=== PATIENT | female | born 1930 | race Caucasian/White ===

== ENCOUNTER 2016-06-09 12:58 | Inpatient (IN) | payer MEDICARE, OTHER ==
[~2016-06-09] VITALS: Ht 160 cm; Wt 51.9 kg
[2016-06-09] VITALS (10 sets, daily range): BP systolic 96–168; BP diastolic 46–77; PULSE 51–62; RESP 14–21; TEMP 97.7–97.9; O2SAT 97–100
[~2016-06-09 12:58] MED LIST: ARTHRITIS MED; CLON.5 PO; HTN MED; HYDR-3533 PO; SERT50 PO
[2016-06-09] MEDS ORDERED: SODIUM CHLOR 0.9% 1000 ML INJ 1,000 ML IV ONE (13:09)
[2016-06-09 13:19] LABS: AUTOMATED NEUTROPHIL # 4.7 TH/MM3 (1.8-7.7); BASOPHIL % 0.5 % (0.0-2.0); EOSINOPHIL # 0.1 TH/MM3 (0-0.4); EOSINOPHIL % 0.6 % (0.0-4.0); HEMATOCRIT 35.7 % (35.0-46.0); HEMO FLAGS DIFF FINAL; LYMPH % 40.5 % (9.0-44.0); LYMPHOCYTE # 3.7 TH/MM3 (1.0-4.8); MEAN CELL VOLUME 90.6 FL (80.0-100.0); MEAN CORPUSCULAR HEMOGLOBIN 30.5 PG (27.0-34.0); MEAN CORPUSCULAR HGB CONC 33.6 % (32.0-36.0); MONO % 7.5 % (0.0-8.0); NEUT % 50.9 % (16.0-70.0); PLATELET COUNT 273 TH/MM3 (150-450); RED BLOOD COUNT 3.95 MIL/MM3 (4.00-5.30); RED CELL DISTRIBUTION WIDTH 13.2 % (11.6-17.2); WHITE BLOOD COUNT 9.2 TH/MM3 (4.0-11.0)
[2016-06-09] MEDS ORDERED: IODIXANOL 320 MG/ML 10 ML VIAL (for Rad CT) IV ONE (13:21)
[2016-06-09 13:22] LABS: I-STAT POTASSIUM 4.8 MMOL/L (3.5-4.9)
--- NOTE | 2016-06-09 13:25 | RADRPT ---
EXAM DATE/TIME: 06/09/2016 13:11 [facility] COMPARISON: No previous studies available for comparison. INDICATIONS : Stroke alert; left sided weakness and facial droop. RADIATION DOSE: 32.24 CTDIvol (mGy) This report was called by Dr. Angulo to Dr. Paul at 1322 MEDICAL HISTORY : Non-responsive. SURGICAL HISTORY : Non-responsive. ENCOUNTER: Initial ACUITY: 1 day PAIN SCALE: Non-responsive LOCATION: cranial TECHNIQUE: Multiple contiguous axial images were obtained of the head. Using automated exposure control and adjustment of the mA and/or kV according to patient size, radiation dose was kept as low as reasonably achievable to obtain optimal diagnostic quality images. FINDINGS: CEREBRUM: The ventricles are normal for age. Subarachnoid space in the frontal regions are promin ent. No evidence of midline shift, mass lesion, hemorrhage or acute infarction. No extra-axial flui d collections are seen. POSTERIOR FOSSA: The cerebellum and brainstem are intact. The 4th ventricle is midline. The cer ebellopontine angle is unremarkable. EXTRACRANIAL: The visualized portion of the orbits is intact. SKULL: The calvaria is intact. No evidence of skull fracture. CONCLUSION: No evidence of acute infarct or hemorrhage. Frontal lobe volume loss. Adebayo Mario MD on June 09, 2016 at 13:17 Board Certified Radiologist. This report was verified electronically.
[2016-06-09 13:28] LABS: APTT (PATIENT) 22.4 SEC (24.3-30.1); PROTHROMBIN TIME - PATIENT 10.9 SEC (9.8-11.6)
[2016-06-09] MEDS ORDERED: ONDANSETRON HCL 4 MG/2 ML VIAL ONE ×2 (13:53→14:16)
--- NOTE | 2016-06-09 14:12 | PD ---
HPI Chief Complaint: Stroke Alert Time Seen by Provider: 13:08 Travel History International Travel<30 days: No Contact w/Intl Traveler<30days: No Traveled to known affect area: No History of Present Illness HPI 85-year-old woman, history of hypertension and chronic kidney disease, presents emergency Department with the abrupt onset of confusion, collapse, found to have left-sided facial droop and flaccid paralysis and left-sided weakness. Onset of symptoms was 12:15 PM. No history of previous stroke. Otherwise had been feeling generally well except for some recent cough cold symptoms. EMS describes the patient was out walking with family when she got weak, started to collapse was caught by family members. History Past Medical History Narrative Medical Hypertension Chronic kidney disease Medical History: Unable to Obtain Menopausal: Yes Past Surgical History Surgical History: Unable to Obtain Social History Alcohol Use: Yes (OCC) Tobacco Use: Yes (4 CIGS PER DAY) Allergies-Medications (Allergen,Severity, Reaction): Coded Allergies: No Known Allergies (Verified , 06/09/16) Reported Meds & Prescriptions Reported Meds & Active Scripts Active Active Prescriptions or Reported Medications Unobtainable Review of Systems Except as stated in HPI: all other systems reviewed are Neg Physical Exam Narrative GENERAL: 85-year-old woman, left-sided flaccid weakness right sided gaze deviation SKIN: Warm and dry. HEAD: Atraumatic. Normocephalic. EYES: Pupils equal and round. No scleral icterus. No injection or drainage. ENT: No nasal bleeding or discharge. Mucous membranes pink and moist. NECK: Trachea midline. No JVD. CARDIOVASCULAR: Regular rate and rhythm. No murmur appreciated. RESPIRATORY: No accessory muscle use. Clear to auscultation. Breath sounds equal bilaterally. GASTROINTESTINAL: Abdomen soft, non-tender, nondistended. Hepatic and splenic margins not palpable. MUSCULOSKELETAL: No obvious deformities. No clubbing. No cyanosis. No edema. NEUROLOGICAL: Somewhat decreased alertness. Marked paralysis of left-sided facial droop. No aphasia. Some dysarthria. Left-sided flaccid paresis of left -sided sensory loss and right sided gaze deviation and left canids-neglect. PSYCHIATRIC: Appropriate mood and affect; insight and judgment normal. Data Data Last Documented VS Vital Signs Date Time Temp Pulse Resp B/P Pulse Ox O2 Delivery O2 Flow Rate FiO2 06/09/16 13:30 58 14 156/68 98 Nasal Cannula 4 Orders Diet Npo (06/09/16 Lunch) Activity Bed Rest (06/09/16 ) Electrocardiogram (06/09/16 ) I-Stat Creatinine (06/09/16 13:09) I-Stat Profile (06/09/16 13:09) Prothrombin Time / Inr (Pt) (06/09/16 13:09) Act Partial Throm Time (Ptt) (06/09/16 13:09) Complete Blood Count With Diff (06/09/16 13:09) Fibrinogen (06/09/16 13:09) Creatine Kinase (Cpk) (06/09/16 13:09) Troponin I (06/09/16 13:09) Ua Includes Microscopic (06/09/16 13:09) Drug Screen, Random Urine (06/09/16 13:09) Type And Screen (06/09/16 13:09) Ct Brain W/O Iv Contrast(Rout) (06/09/16 ) Cta Brain W Iv Contrast W 3d (06/09/16 13:09) Cta Neck W Iv Contrast W 3d (06/09/16 13:09) Consult Neurology (06/09/16 ) Blood Glucose (06/09/16 13:09) Ecg Monitoring (06/09/16 13:09) Neuro Checks Q2HX12,Q4H (06/09/16 13:09) Nursing Bedside Swallow Assess .ONCE (06/09/16 13:09) Iv Access Insert/Monitor (06/09/16 13:09) NPO (06/09/16 13:09) Oximetry (06/09/16 13:09) Oxygen Administration (06/09/16 13:09) Sodium Chlor 0.9% 1000 Ml Inj (Ns 1000 M (06/09/16 13:09) Resp Oxygen Nato C Titrat 1-4 L (06/09/16 13:09) Cath For Specimen (06/09/16 13:09) Iodixanol 320 Inj (Rad Ct) (Visipaque 32 (06/09/16 13:21) Labs Laboratory Tests Test 06/09/16 13:02 White Blood Count 9.2 TH/MM3 Red Blood Count 3.95 MIL/MM3 Hemoglobin 12.0 GM/DL Bedside Hemoglobin 11.9 G/DL Hematocrit 35.7 % Bedside Hematocrit 35.0 % Mean Corpuscular Volume 90.6 FL Mean Corpuscular Hemoglobin 30.5 PG Mean Corpuscular Hemoglobin 33.6 % Concent Red Cell Distribution Width 13.2 % Platelet Count 273 TH/MM3 Mean Platelet Volume 7.5 FL Neutrophils (%) (Auto) 50.9 % Lymphocytes (%) (Auto) 40.5 % Monocytes (%) (Auto) 7.5 % Eosinophils (%) (Auto) 0.6 % Basophils (%) (Auto) 0.5 % Neutrophils # (Auto) 4.7 TH/MM3 Lymphocytes # (Auto) 3.7 TH/MM3 Monocytes # (Auto) 0.7 TH/MM3 Eosinophils # (Auto) 0.1 TH/MM3 Basophils # (Auto) 0.0 TH/MM3 CBC Comment DIFF FINAL Differential Comment Prothrombin Time 10.9 SEC Prothromb Time International 1.0 RATIO Ratio Activated Partial 22.4 SEC Thromboplast Time Fibrinogen 302 mg/dL Bedside Sodium 137 MMOL/L Bedside Potassium 4.8 MMOL/L Bedside Chloride 104 MMOL/L Bedside Blood Urea Nitrogen 45 MG/DL Bedside Creatinine 1.7 MG/DL Bedside Glucose 136 MG/DL Total Creatine Kinase 68 U/L Troponin I 0.02 NG/ML Blood Type A POSITIVE Antibody Screen NEGATIVE Blood Bank Comment [facility] Medical Decision Making Medical Screen Exam Complete: Yes Emergency Medical Condition: Yes Interpretation(s) Head CT negative Labs remarkable for elevated creatinine, consistent with chronic kidney disease Differential Diagnosis CVA, bleed, dissection, other Narrative Course Medical decision making 85-year-old woman presents emergency Department with abrupt onset of left-sided facial weakness and left-sided paralysis. NIH stroke scale was 19 as done by me , consistent with moderate to severe stroke. No contraindications to TPA. Risks and benefits for tPA were discussed with patient, sister, significant other. Risks including hemorrhage, including potentially fatal GI and intracranial bleeding which can result in long-term serious disability or were discussed. Benefits including resolution of symptoms were discussed. Patient as well as family including sister and her significant other consented verbally to proceed with therapy. TPA was started on CT scan. Given the large suspicion for large vessel occlusion, CTA was performed. Chronic kidney disease elbow creatinine was noted. CTA does show large vessel occlusion the patient was taken to the interventional radiology suite, and will be admitted to the ICU. Procedures Procedure Narrative Aggregate critical care time was 45 minutes. Time to perform other separately billable procedures was not included in the critical care time. My time did not include minutes spent treating any other patients simultaneously or on activities that did not directly contribute to the patient's treatment. The services I provided to this patient were to treat and/or prevent clinically significant deterioration that could result in: , disability, unrecognized stroke, operative for stroke treatment. I provided critical care services requiring my management, as noted below: Chart data review, documentation time, medication orders and management, vital sign assessments/reviewing monitor data, ordering and reviewing lab tests, ordering and interpreting/reviewing x-rays and diagnostic studies, care of the patient and discussion of the patient with the admitting physicians. Scripts Unable to Obtain Active Prescriptions or Reported Meds Derrick Paul MD Jun 09, 2016 14:12
[2016-06-09] MEDS ORDERED: VERAPAMIL INJ 10 MG/4 ML VIAL ONE (14:21)
[2016-06-09] MEDS ORDERED: fentaNYL CITRATE 250 MCG/5 ML AMP ONE (14:21)
[2016-06-09] MEDS ORDERED: MIDAZOLAM HCL 5 MG/5 ML VIAL ONE (14:21)
[2016-06-09] MEDS ORDERED: MISCELLANEOUS NURSING INFORMATION XX PRN (14:30)
[2016-06-09] MEDS ORDERED: ONDANSETRON HCL 4 MG/2 ML VIAL IV PUSH ONE (14:30)
[2016-06-09] MEDS ORDERED: ALTEPLASE DRIP IV ONE (14:30)
[2016-06-09] MEDS ORDERED: SODIUM CHLORIDE 0.9% 50 ML BAG IVF ONE (14:30)
[2016-06-09] MEDS ORDERED: ALTEPLASE BOLUS 9 MG/9 ML SYR IV ONE (14:30)
--- NOTE | 2016-06-09 14:42 | RADRPT ---
EXAM DATE/TIME: 06/09/2016 13:22 [facility] COMPARISON: No previous studies available for comparison. INDICATIONS : Stroke alert; left sided weakness and facial droop. IV CONTRAST: 50 cc Visipaque (iodixanol) IV ; Cumulative dose for multiple exams. RADIATION DOSE: 26.02 CTDIvol (mGy) ; Combined studies MEDICAL HISTORY : Non-responsive. SURGICAL HISTORY : Non-responsive. ENCOUNTER: Initial ACUITY: 1 day PAIN SCALE: Non-responsive LOCATION: cranial TECHNIQUE: Volumetric scanning was performed using a multi-row detector CT scanner. The data was post processed with a variety of visualization algorithms including full volume maximum intensity projection, multi -planar sliding thin slab reformation, curved planar reformation, and surface rendering techniques. Using automated exposure control and adjustment of the mA and/or kV according to patient size, radiat ion dose was kept as low as reasonably achievable to obtain optimal diagnostic quality images. FINDINGS: There is excellent visualization of the major intracranial arteries out to the second-order branch ve ssels. Calcific atherosclerotic disease identified in both carotid siphons. Abrupt cutoff occlusion is identified of the proximal M1 segment of the right middle through artery. A M2 and M3 branches are seen distally suggesting collateral flow. The left middle through artery and intracerebral arteries are widely patent. Vertebral basilar circulation is unremarkable without evidence of stenosis or occlusion. CONCLUSION: Occluded proximal M1 segment of the right middle cervical artery No other occlusive or stenotic lesions. Adebayo Mario MD on June 09, 2016 at 13:45 Board Certified Radiologist. This report was verified electronically.
[2016-06-09] MEDS ORDERED: HEPARIN SODIUM - IV 10,000 UNITS/10 ML VIAL ONE (14:47)
--- NOTE | 2016-06-09 14:55 | RADRPT ---
EXAM DATE/TIME: 06/09/2016 13:22 [facility] COMPARISON: No previous studies available for comparison. INDICATIONS : Stroke alert; left sided weakness and facial droop. IV CONTRAST: 50 cc Visipaque (iodixanol) IV ; Cumulative dose for multiple exams. RADIATION DOSE: 26.02 CTDIvol (mGy) ; Combined studies MEDICAL HISTORY : Non-responsive. SURGICAL HISTORY : Non-responsive. ENCOUNTER: Initial ACUITY: 1 day PAIN SCALE: Non-responsive LOCATION: neck TECHNIQUE: Volumetric scanning was performed using a multirow detector CT scanner. The data was post processed with a variety of visualization algorithms including full-volume maximum intensity projection, multip lanar sliding thin-slab reformation, curved-planar reformation, and surface-rendering techniques. Us ing automated exposure control and adjustment of the mA and/or kV according to patient size, radiatio n dose was kept as low as reasonably achievable to obtain optimal diagnostic quality images. FINDINGS: AORTIC ARCH: Developmental anomaly of the aortic arch is noted. 3 vessel aortic arch is noted. The innominate and left common carotid arteries have a common origin. The left subclavian artery has a normal origin. Th e right subclavian artery originates adjacent to but distal to the left subclavian artery. It courses posterior to the esophagus to the right upper extremity. There is no evidence of ostial stenosis inv olving the great vessels. RIGHT CAROTID: Densely calcified plaque is identified at the origin of the right internal carotid artery. Degree of stenosis is moderate to severe in the 50-69% range. The cervical portion of the right ICA is otherwis e widely patent. LEFT CAROTID: Noncalcified plaque is identified in the left carotid bifurcation. There is moderate stenosis of the left ICA origin which measures between 50 and 60% diameter narrowing. VERTEBRALS: The right vertebral artery originates from the proximal right common carotid artery. The left vertebr al artery has a normal origin. There is no evidence of vertebral artery occlusive disease. 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 Bilateral carotid bifurcation plaques with moderate to severe stenosis at the origin of the right ank le carotid artery and moderate stenosis at the origin of the left internal carotid artery. Right vertebral artery originates from the right common carotid artery. Adebayo Mario MD on June 09, 2016 at 14:43 Board Certified Radiologist. This report was verified electronically.
--- NOTE | 2016-06-09 15:15 | HHI.HP ---
HPI Service Critical Care Medicine Primary Care Physician Unknown Admission Diagnosis right MCA stroke Diagnosis: Chief Complaint: Left sided weakness Travel History International Travel<30 Days: No Contact w/Intl Traveler <30 Da: No Traveled to Known Affected Are: No History of Present Illness HPI 85-year-old woman, history of hypertension and chronic kidney disease, presents emergency Department with the abrupt onset of confusion, collapse, found to have left-sided facial droop and flaccid paralysis and left-sided weakness. Onset of symptoms was 12:15 PM. No history of previous stroke. Otherwise had been feeling generally well except for some recent cough cold symptoms. EMS describes the patient was out walking with family when she got weak, started to collapse was caught by family members. Patient was brought to the ER where she was noted to have dense left-sided hemiplegia. Stat head CT was negative for bleed. Patient was initiated on stroke protocol and underwent CTA head and neck and received TPA. Critical care medicine accepted patient for admission to the ICU. I evaluated the patient immediately on being notified. At the time of my evaluation patient was awake and alert with normal speech and right- sided hemiplegia having just finished TPA infusion. She was to be taken to interventional radiology for clot retrieval. History (Limited) History Past Medical History Narrative Medical Hypertension Chronic kidney disease Medical History: Unable to Obtain Menopausal: Yes Past Surgical History Surgical History: Unable to Obtain Social History Alcohol Use: Yes (OCC) Tobacco Use: Yes (4 CIGS PER DAY) Allergies-Medications Allergies-Medications (Allergen,Severity, Reaction): Coded Allergies: No Known Allergies (Verified , 06/09/16) Reported Meds & Prescriptions Reported Meds & Active Scripts Active Active Prescriptions or Reported Medications Unobtainable ROS Review of Systems Except as stated in HPI: all other systems reviewed are Neg Physical Exam Vital Signs Vital Signs Date Time Temp Pulse Resp B/P Pulse Ox O2 Delivery O2 Flow Rate FiO2 06/09/16 14:00 57 14 163/59 98 Nasal Cannula 4 06/09/16 13:45 61 14 168/65 100 Nasal Cannula 4 06/09/16 13:44 97 21 06/09/16 13:30 58 14 156/68 98 Nasal Cannula 4 06/09/16 13:15 51 14 139/77 98 Nasal Cannula 4 06/09/16 13:13 98 Nasal Cannula 4 06/09/16 13:13 98 Nasal Cannula 4 06/09/16 13:01 54 14 144/66 98 Physical Exam Narrative GENERAL: 85-year-old woman, left-sided flaccid weakness right sided gaze deviation SKIN: Warm and dry. HEAD: Atraumatic. Normocephalic. EYES: Pupils equal and round. No scleral icterus. No injection or drainage. ENT: No nasal bleeding or discharge. Mucous membranes pink and moist. NECK: Trachea midline. No JVD. CARDIOVASCULAR: Regular rate and rhythm. No murmur appreciated. RESPIRATORY: No accessory muscle use. Clear to auscultation. Breath sounds equal bilaterally. GASTROINTESTINAL: Abdomen soft, non-tender, nondistended. Hepatic and splenic margins not palpable. MUSCULOSKELETAL: No obvious deformities. No clubbing. No cyanosis. No edema. NEUROLOGICAL: AAO x3, no aphasia. Some dysarthria. Left-sided flaccid hemiparesis with grade 0 power in left upper and lower extremities, Gr 5 power in right upper and lower extremities. Laboratory Laboratory Tests Test 06/09/16 13:02 White Blood Count 9.2 Red Blood Count 3.95 Hemoglobin 12.0 Bedside Hemoglobin 11.9 Hematocrit 35.7 Bedside Hematocrit 35.0 Mean Corpuscular Volume 90.6 Mean Corpuscular Hemoglobin 30.5 Mean Corpuscular Hemoglobin 33.6 Concent Red Cell Distribution Width 13.2 Platelet Count 273 Mean Platelet Volume 7.5 Neutrophils (%) (Auto) 50.9 Lymphocytes (%) (Auto) 40.5 Monocytes (%) (Auto) 7.5 Eosinophils (%) (Auto) 0.6 Basophils (%) (Auto) 0.5 Neutrophils # (Auto) 4.7 Lymphocytes # (Auto) 3.7 Monocytes # (Auto) 0.7 Eosinophils # (Auto) 0.1 Basophils # (Auto) 0.0 CBC Comment DIFF FINAL Differential Comment Prothrombin Time 10.9 Prothromb Time International 1.0 Ratio Activated Partial 22.4 Thromboplast Time Fibrinogen 302 Bedside Sodium 137 Bedside Potassium 4.8 Bedside Chloride 104 Bedside Blood Urea Nitrogen 45 Bedside Creatinine 1.7 Bedside Glucose 136 Total Creatine Kinase 68 Troponin I 0.02 Blood Type A POSITIVE Antibody Screen NEGATIVE Blood Bank Comment Result Diagram: 06/09/16 1302 Imaging Last Impressions Head CT 06/09/16 0000 Signed Impressions: Service Date/Time: Thursday, June 09, 2016 13:11 - CONCLUSION: No evidence of acute infarct or hemorrhage. Frontal lobe volume loss. 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 Status post IV TPA. Neurology consulted and discussed case with Dr. Fuller. Patient going for mechanical clot retrieval by interventional radiology. Anticoagulation/ antiplatelet therapy per neurology/interventional radiology. Cardiovascular: Monitor blood pressure, labetalol when necessary to keep SBP below 180 mmHg following thrombolysis Pulmonary: Currently protecting airway. Supplemental O2 as needed. Bronchodilators when necessary. GI/liver: Nothing by mouth for now. Advance by mouth when okay with neurology. Speech swallow eval ordered. Zofran when necessary for nausea vomiting. Renal/: IV hydration, strict intake output, monitor and replete electrolytes, follow BUN/creatinine. Heme: Follow CBC ID: No antibiotics indicated at this time Prophylaxis: SCDs. Subcutaneous Lovenox when okay with neurology. D/W Dr. Sauceda, Dr. Fuller in ER. Time spent on critical care excluding procedures 40 minutes Eleazar Chua MD Jun 09, 2016 15:15
[2016-06-09] MEDS ORDERED: LABETALOL HCL 100 MG/20 ML VIAL IV PUSH PRN (15:30)
[2016-06-09] MEDS ORDERED: ONDANSETRON HCL 4 MG/2 ML VIAL IV PUSH PRN (15:30)
[2016-06-09] MEDS ORDERED: IODIXANOL 320 MG/ML 100 ML VIAL (for Cath Lab) I-ARTERIAL ONE (16:16)
[2016-06-09] MEDS ORDERED: IODIXANOL 320 MG/ML 10 ML VIAL (for RAD SPEC) I-ARTERIAL ONE (16:16)
[2016-06-09] MEDS: oxyCODONE/ACETAMINOPHEN 5 MG/325 MG TAB PO PRN (17:18)
--- NOTE | 2016-06-09 18:11 | RADRPT ---
EXAM DATE/TIME: 06/09/2016 17:32 [facility] COMPARISON: No previous studies available for comparison. INDICATIONS : Left anterior, inferior rib pain post fall. MEDICAL HISTORY : None. SURGICAL HISTORY : None. ENCOUNTER: Initial ACUITY: 1 day PAIN SCORE: 10/10 LOCATION: Left chest FINDINGS: A single view of the chest demonstrates the lungs to be symmetrically aerated without evidence of mas s, infiltrate or effusion. The cardiomediastinal contours are unremarkable. Osseous structures are intact. CONCLUSION: No acute disease. Jose Enrique Paredes MD FACR on June 09, 2016 at 18:09 Board Certified Radiologist. This report was verified electronically.
[2016-06-09] MEDS: MORPHINE SULFATE 4 MG/ML INJ IV PRN ×2 (18:18→22:35)
[2016-06-10] VITALS (11 sets, daily range): BP systolic 95–114; BP diastolic 44–58; PULSE 54–74; RESP 12–24; TEMP 98.1–98.3; O2SAT 95–100
[2016-06-10] MEDS: oxyCODONE/ACETAMINOPHEN 5 MG/325 MG TAB PO PRN ×2 (00:33→10:01)
[2016-06-10] MEDS: MORPHINE SULFATE 4 MG/ML INJ IV PRN ×4 (02:30→23:16)
[2016-06-10 04:40] LABS: HDL CHOLESTEROL 40.1 MG/DL (40.0-60.0); LDL CHOLESTEROL 56 MG/DL (0-99)
--- NOTE | 2016-06-10 08:15 | RADRPT ---
EXAM DATE/TIME: 06/09/2016 14:16 [facility] COMPARISON: No previous studies available for comparison. INDICATIONS : Patient is a stroke alert, with flaccid left side. MEDICAL HISTORY : Hypertension Chronic kidney disease SURGICAL HISTORY : Unobtainable ENCOUNTER: Initial ACUITY: 1 day PAIN SCORE: 7/10 LOCATION: ribs FLUORO TIME: 10.0 minutes ACCESS SITE: Right Femoral artery SEDATION TIME: 45 minutes CONTRAST: 60 cc Visipaque (iodixanol) MEDICATION(S): 1.) 1 mg midazolam (Versed) IV 2.) 50 mcg fentanyl (Sublimaze) IV DEVICE(S): 1.) Right common femoral artery 8 FR Angio-Seal PROCEDURE : 1. Ultrasound-guided puncture of the access site. 2. Angiography of the access site prior to closure device. 3. Conscious sedation with continuous EKG and Oximetry monitoring. 4. Percutaneous closure of the access site. 5. Angiography of the right common carotid artery 6. Angiography of the right internal carotid artery 7. suction thrombectomy of the right middle cerebral artery The risks, benefits and alternatives to the procedure were explained and verbal and written consent w as obtained. The site was prepped in sterile fashion. Full sterile technique was used, including ca p, mask, sterile gloves and gown and a large sterile sheet. Hand hygiene and 2% chlorhexidine and/or betadine/alcohol prep was utilized per protocol for cutaneous antisepsis. The skin and subcutaneous tissues were infiltrated with local anesthetic solution. With ultrasound and fluoroscopic guidance the selected artery was punctured and a vascular sheath was placed. Angiography of the common femoral artery was performed for evaluation prior to percutaneous closure device placement. A JB2 catheter was placed in the right common carotid artery and angiography of the carotid bifurcati on demonstrates 50-60% stenosis. The catheter was advanced into the internal carotid artery and excha nged for a 6 Czech guiding catheter. Angiography of the internal carotid artery demonstrates complet e occlusion of the M1 segment on the right side. Following heparinization with 3000 units an EMILY 68 c atheter was taken to the face of the clot and thrombectomy and suction performed for 90 seconds. The catheter was withdrawn a repeat angiography image rates complete patency of the middle cerebral arter y. TICI3 flow was present. Puncture time was 1425 with an recanalization time was 1450. Hemostasis was obtained with the prescribed medicated closure device. Conscious sedation was perform ed with the prescribed dosages and duration as above. EKG and oximetry remained stable throughout th e procedure. The patient was sent to post anesthesia recovery in stable condition. CONCLUSION: 1. Uncomplicated thrombectomy of the right middle cerebral artery Matthew Vizcaino MD on June 10, 2016 at 8:01 Board Certified Radiologist. This report was verified electronically.
[2016-06-10 08:59] LABS: ANION GAP 8 MEQ/L (5-15); AST (GOT) 20 U/L (15-37); BICARBONATE 23.6 MEQ/L (21.0-32.0); BLOOD UREA NITROGEN 46 MG/DL (7-18); CHLORIDE 106 MEQ/L (98-107); GLOMERULAR FILTRATION RATE 27 ML/MIN (>89); POTASSIUM 4.7 MEQ/L (3.5-5.1); SODIUM (NA) 138 MEQ/L (136-145)
[2016-06-10 09:02] LABS: ALKALINE PHOSPHATASE 47 U/L (45-117); ALT (GPT) 16 U/L (10-53); TOTAL BILIRUBIN ADULT 0.4 MG/DL (0.2-1.0)
--- NOTE | 2016-06-10 09:45 | MB ---
cc: BERNARDINO PEARCE MD DATE OF CONSULTATION 06/09/2016 HISTORY This is an 85-year-old female who was called in as a stroke alert with a history of hypertension and chronic kidney disease, presented to the emergency room with sudden onset of altered mental status while she was walking with a friend. She fell, collapsed and was found to have a left-sided face droop with left-sided weakness of arm and leg. Onset of the symptoms was 12:15 p.m. There is no history of prior TIA or stroke. The patient is without history of any stroke, TIA and not on any blood thinner. No significant head injury and no seizures were reported. The NIH stroke scale was estimated to be 15 for a partial gaze palsy, a partial hemianopsia and a partial facial palsy with no movements of upper and lower extremity, partial sensory loss, dysarthria and partial neglect. Head CT scan was negative for any bleed. The patient was within the therapeutic window. Labs were unremarkable with INR of 1.0, platelet count of 273, so the patient was deemed a candidate for IV TPA which was started and CTA of the head and neck and IR was consulted for further workup. PAST MEDICAL HISTORY 1. Hypertension. 2. Chronic kidney disease. PAST SURGICAL HISTORY Unable to obtain. SOCIAL HISTORY Occasional use of alcohol and a few cigarettes per day. No illicit drug use. FAMILY HISTORY Noncontributory. ALLERGIES No known allergies. REVIEW OF SYSTEMS A 12-point review of systems is negative except for what is stated in the HPI. PHYSICAL EXAMINATION GENERAL: Lays in bed, calm with left-sided weakness and right-sided gaze deviation. Not in acute distress but apprehended and anxious. HEENT: Atraumatic, normocephalic. Intact hearing. NECK: Trachea in the midline. No carotid bruit. CARDIOVASCULAR: Normal sinus rhythm. No murmurs. LUNGS: Clear to auscultation. No wheezes. MUSCULOSKELETAL: No obvious deformity, scratches on the left side of the arm and foot and giron due to fall. NEUROLOGICAL: Awake, alert, oriented to time, person and place. right gaze paresis, partial hemianopsia, A dense hemiplegia on the left side and left-sided facial palsy of upper motor neuron type. Slurred speech. Intact speech content.Sensory and extinction is positive, unable to assess for cerebellar function due to the weakness on the left side. Intact on the right side. PSYCHIATRIC: Appropriate mood and affect. Insight and judgment are normal. VITAL SIGNS: Blood pressure 156/68, pulse ox 98, pulse 58. LABORATORY DATA White blood cells 9.2, hemoglobin 12, platelet 273. INR 1.0. Troponin 0.02.Sodium 137, potassium 4.8, chloride 104 BUN 45, creatinine 1.7, glucose 136.Total creatinine kinase 68. IMAGING STUDIES - Head CT scan was reported with no acute intracranial abnormality. - Pending CTA of the head and neck official read. DIAGNOSTIC IMPRESSION - Acute ischemic stroke in the right parietal region with most likely right MCA occlusion. IR has been called for interventional radiology thrombectomy or mechanical removal of the clot. PLAN - Continue IV TPA. - During the encounter the patient will go to the IR suite for - mechanical thrombectomy. - Neurology will follow up after the procedure. MD LILA Ocampo/KK /2:33 PM /9:33 AM MTDShashank
--- NOTE | 2016-06-10 11:02 | HHI.CCPN ---
Subjective Remarks/Hospital Course 06/09: 85-year-old woman, history of hypertension and chronic kidney disease, presents emergency Department with the abrupt onset of confusion, collapse, found to have left-sided facial droop and flaccid paralysis and left-sided weakness. Onset of symptoms was 12:15 PM. No history of previous stroke. Otherwise had been feeling generally well except for some recent cough cold symptoms. EMS describes the patient was out walking with family when she got weak, started to collapse was caught by family members. Patient was brought to the ER where she was noted to have dense left-sided hemiplegia. Stat head CT was negative for bleed. Patient was initiated on stroke protocol and underwent CTA head and neck and received TPA. Critical care medicine accepted patient for admission to the ICU. I evaluated the patient immediately on being notified. At the time of my evaluation patient was awake and alert with normal speech and right-sided hemiplegia having just finished TPA infusion. She was to be taken to interventional radiology for clot retrieval. 06/10: Patient underwent clot retrieval yesterday by interventional radiology with good flow was established in right MCA territory. She has had almost complete resolution of left-sided weakness since the procedure. Patient has been complaining of left-sided chest wall pain at the site of her fall since her arrival in the ICU yesterday which improved with morphine. This morning she is awake and alert laying in bed not in any acute distress. She still complains of left-sided chest wall pain. Denies any shortness of breath nausea headache or visual disturbance. Her speech appears normal. Objective Vital Signs Date Time Temp Pulse Resp B/P Pulse Ox O2 Delivery O2 Flow Rate FiO2 06/10/16 07:49 95 06/10/16 07:00 Nasal Cannula 2.00 06/10/16 04:00 98.3 54 13 97/46 06/09/16 13:44 21 Intake and Output 06/09/16 06/09/16 06/10/16 08:00 16:00 00:00 Intake Total 633 ml Output Total 0 ml Balance 633 ml Result Diagram: 06/09/16 1302 06/10/16 0348 Imaging Last Impressions Head CT 06/09/16 0000 Signed Impressions: Service Date/Time: Thursday, June 09, 2016 13:11 - CONCLUSION: No evidence of acute infarct or hemorrhage. Frontal lobe volume loss. Adebayo Mario MD Objective Remarks Narrative GENERAL: 85-year-old woman, laying in bed not in any acute distress SKIN: Warm and dry. HEAD: Atraumatic. Normocephalic. EYES: Pupils equal and round. No scleral icterus. No injection or drainage. ENT: No nasal bleeding or discharge. Mucous membranes pink and moist. NECK: Trachea midline. No JVD. CARDIOVASCULAR: Regular rate and rhythm. No murmur appreciated. RESPIRATORY: No accessory muscle use. Clear to auscultation. Breath sounds equal bilaterally. GASTROINTESTINAL: Abdomen soft, non-tender, nondistended. Hepatic and splenic margins not palpable. MUSCULOSKELETAL: No obvious deformities. No clubbing. No cyanosis. No edema. NEUROLOGICAL: AAO x3, speech appears normal. Left-sided hemiparesis almost resolved with grade 4 power in left upper and lower extremities, Gr 5 power in right upper and lower extremities. A/P Assessment and Plan 85 y/o female with: Ischemic CVA with left hemiplegia s/p thrombolysis HTN Hyperlipidemia CKD Plan: Neuro: Continue neuro checks per stroke protocol. Status post IV TPA. Neurology consulted - Dr. Fuller. Patient underwent mechanical clot retrieval from occluded M1 segment of right MCA by interventional radiology on 06/09. Anticoagulation/antiplatelet therapy to be started per neurology/interventional radiology. Repeat Head CT on 06/10 per stroke protocol. Cardiovascular: Monitor blood pressure, labetalol when necessary to keep SBP below 180 mmHg following thrombolysis Pulmonary: Currently protecting airway. Supplemental O2 as needed. Bronchodilators when necessary. GI/liver: Speech swallow eval ordered. Zofran when necessary for nausea vomiting. Advance by mouth per speech/swallow recommendations. Renal/: IV hydration, strict intake output, monitor and replete electrolytes, follow BUN/creatinine. Given 1 L normal saline bolus this morning for poor urine output and borderline blood pressure. Heme: Follow CBC ID: No antibiotics indicated at this time Prophylaxis: SCDs. Subcutaneous Lovenox when okay with neurology. D/W [employer] We'll consult and transfer to hospitalist service for further medical management. Transfer out of ICU when okay with neurology. Eleazar Chua MD Jun 10, 2016 11:01
--- NOTE | 2016-06-10 13:09 | HHI.HP ---
History of Present Illness Service [facility] practice Primary Care Physician Fabio Antony, DO Admission Diagnosis right MCA stroke Diagnoses: History of Present Illness 85-year-old woman, history of hypertension and chronic kidney disease, presents emergency Department with the abrupt onset of confusion, collapse, found to have left-sided facial droop and flaccid paralysis and left-sided weakness. No history of previous stroke. Otherwise had been feeling generally well except for some recent cough cold symptoms. Patient received TPA and also went to interventional for clot removal. Patient left sided weakness is nearly completely resolved. Review of Systems Constitutional: DENIES: Fatigue, Fever, Dizziness Respiratory: DENIES: Cough, Sputum production, Shortness of breath Cardiovascular: COMPLAINS OF: Chest pain Gastrointestinal: DENIES: Abdominal pain, Constipation, Diarrhea Musculoskeletal: COMPLAINS OF: Stiffness Integumentary: DENIES: Rash Neurologic: DENIES: Headache, Localized weakness Psychiatric: DENIES: Anxiety, Confusion Past Family Social History Allergies: Coded Allergies: No Known Allergies (Verified , 06/09/16) Past Medical History HTN Chronic kidney disease Reported Medications Reported Meds & Active Scripts Active Active Prescriptions or Reported Medications Unobtainable Active Ordered Medications Current Medications Medications (Trade) Dose Ordered Sig/Albert Route Start Time Stop Time Status Last Admin Miscellaneous Information No Heparin, Warfarin, Aspir... UNSCH PRN XX 06/09/16 14:30 06/10/16 14:29 (Zofran Inj) 4 mg Q6HR PRN IV PUSH 06/09/16 15:30 (Trandate Inj) 10 mg Q2HR PRN IV PUSH 06/09/16 15:30 (Percocet 5-325 Mg) 1 tab Q4H PRN PO 06/09/16 17:15 06/10/16 10:01 (Morphine Inj) 4 mg Q4H PRN IV 06/09/16 18:00 06/10/16 11:30 Family History Mother at 82 from sepsis Father at 63 heart disease Social History Quit smoking 1 month ago ETOH occasional Lives with boyfriend Retired from working at a school Physical Exam Vital Signs Vital Signs Date Time Temp Pulse Resp B/P Pulse Ox O2 Delivery O2 Flow Rate FiO2 06/10/16 12:00 55 06/10/16 12:00 98.1 55 12 97/44 100 06/10/16 11:05 12 06/10/16 10:00 65 06/10/16 08:00 98.3 60 15 95/45 99 06/10/16 08:00 60 06/10/16 07:49 95 06/10/16 07:00 97 Nasal Cannula 2.00 06/10/16 04:00 98.3 54 13 97/46 99 06/10/16 02:35 20 06/10/16 00:00 98.2 54 24 114/58 99 06/09/16 20:00 62 06/09/16 20:00 97.9 56 14 96/46 98 06/09/16 20:00 Nasal Cannula 2.00 06/09/16 18:00 60 06/09/16 16:00 97.7 57 21 117/58 98 06/09/16 16:00 57 06/09/16 14:00 57 14 163/59 98 Nasal Cannula 4 06/09/16 13:45 61 14 168/65 100 Nasal Cannula 4 06/09/16 13:44 97 21 06/09/16 13:30 58 14 156/68 98 Nasal Cannula 4 06/09/16 13:15 51 14 139/77 98 Nasal Cannula 4 06/09/16 13:13 98 Nasal Cannula 4 06/09/16 13:13 98 Nasal Cannula 4 06/09/16 13:01 54 14 144/66 98 Physical Exam GENERAL: This is a well-nourished, well-developed patient, in no apparent distress. SKIN: No rashes, ecchymoses or lesions. Cool and dry. HEAD: Atraumatic. Normocephalic. EYES: Pupils equal round and reactive. NECK: Trachea midline. No JVD. Neck supple and nontender. CARDIOVASCULAR: Regular rate and rhythm without murmurs, gallops, or rubs. RESPIRATORY: Clear to auscultation. Breath sounds equal bilaterally. No wheezes , rales, or rhonchi. GASTROINTESTINAL: Abdomen soft, non-tender, nondistended. MUSCULOSKELETAL: Extremities without cyanosis or edema. No edema noted. No calf tenderness. Negative Homans sign bilaterally. NEUROLOGICAL: Awake and alert. Normal speech. Laboratory Laboratory Tests Test 06/09/16 06/10/16 13:02 03:48 White Blood Count 9.2 Red Blood Count 3.95 Hemoglobin 12.0 Bedside Hemoglobin 11.9 Hematocrit 35.7 Bedside Hematocrit 35.0 Mean Corpuscular Volume 90.6 Mean Corpuscular Hemoglobin 30.5 Mean Corpuscular Hemoglobin 33.6 Concent Red Cell Distribution Width 13.2 Platelet Count 273 Mean Platelet Volume 7.5 Neutrophils (%) (Auto) 50.9 Lymphocytes (%) (Auto) 40.5 Monocytes (%) (Auto) 7.5 Eosinophils (%) (Auto) 0.6 Basophils (%) (Auto) 0.5 Neutrophils # (Auto) 4.7 Lymphocytes # (Auto) 3.7 Monocytes # (Auto) 0.7 Eosinophils # (Auto) 0.1 Basophils # (Auto) 0.0 CBC Comment DIFF FINAL Differential Comment Prothrombin Time 10.9 Prothromb Time International 1.0 Ratio Activated Partial 22.4 Thromboplast Time Fibrinogen 302 Bedside Sodium 137 Bedside Potassium 4.8 Bedside Chloride 104 Bedside Blood Urea Nitrogen 45 Bedside Creatinine 1.7 Bedside Glucose 136 Total Creatine Kinase 68 Troponin I 0.02 Blood Type A POSITIVE Antibody Screen NEGATIVE Blood Bank Comment Sodium Level 138 Potassium Level 4.7 Chloride Level 106 Carbon Dioxide Level 23.6 Anion Gap 8 Blood Urea Nitrogen 46 Creatinine 1.80 Estimat Glomerular Filtration 27 Rate Random Glucose 92 Calcium Level 7.7 Total Bilirubin 0.4 Aspartate Amino Transf 20 (AST/SGOT) Alanine Aminotransferase 16 (ALT/SGPT) Alkaline Phosphatase 47 Total Protein 5.4 Albumin 2.5 Triglycerides Level 164 Cholesterol Level 129 LDL Cholesterol 56 HDL Cholesterol 40.1 Cholesterol/HDL Ratio 3.21 Result Diagram: 06/09/16 1302 06/10/16 0348 Imaging Last 48 hours Impressions Cerebral Arteriogram 06/09/16 1354 Signed Impressions: Service Date/Time: Thursday, June 09, 2016 14:16 - CONCLUSION: 1. 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 Right vertebral artery originates from the right common carotid artery. Adebayo Mario MD Head CTA 06/09/16 1309 Signed Impressions: Service Date/Time: Thursday, June 09, 2016 13:22 - CONCLUSION: Occluded proximal M1 segment of the right middle cervical artery No other occlusive or stenotic lesions. Adebayo Maroi MD Head CT 06/09/16 0000 Signed Impressions: Service Date/Time: Thursday, June 09, 2016 13:11 - CONCLUSION: No evidence of acute infarct or hemorrhage. Frontal lobe volume loss. Adebayo Mario MD Chest X-Ray 06/09/16 0000 Signed Impressions: Service Date/Time: Thursday, June 09, 2016 17:32 - CONCLUSION: No acute disease. Jose Enrique Paredes MD FACR Assessment and Plan Problem List: (1) Acute ischemic left MCA stroke Status: Acute Plan: Patient is s/p TPA and clot removal. Patient with minimal left sided weakness. PT ordered. (2) Hypertension Status: Acute Plan: Patients B/P 97/44. Not on medication. Will monitor. (3) Chronic kidney disease (CKD) stage G3b/A2, moderately decreased glomerular filtration rate (GFR) between 30-44 mL/min/1.73 square meter and albuminuria creatinine ratio between 30-299 mg/g Status: Acute Plan: GFR 27. Will monitor. (4) Hyperlipidemia Status: Acute Plan: Will monitor. Lipid WNL Discussed Condition With Assessment and plan discussed with Dr. Antony Discharge Planning Plan to discharge to rehab Krupa Charlton Jun 10, 2016 13:09
[2016-06-10 15:40] LABS: HEMOGLOBIN A1a 1.2 %; HEMOGLOBIN A1b 0.8 %; HEMOGLOBIN Ao 83.3 %; HEMOGLOBIN F 1.5 %
--- NOTE | 2016-06-10 15:44 | RADRPT ---
EXAM DATE/TIME: 06/10/2016 15:10 [facility] COMPARISON: CTA BRAIN W 3D RECON, June 09, 2016, 13:22. ANGIOGRAM, CEREBRAL WO ARCH, June 09, 2016, 14:16. CT BRAIN W/O CONTRAST, June 09, 2016, 13:11. INDICATIONS : Post TPA checkup. RADIATION DOSE: 33.70 CTDIvol (mGy) MEDICAL HISTORY : Stroke. SURGICAL HISTORY : None. ENCOUNTER: Initial ACUITY: 1 day PAIN SCALE: Non-responsive LOCATION: cranial TECHNIQUE: Multiple contiguous axial images were obtained of the head. Using automated exposure control and adj ustment of the mA and/or kV according to patient size, radiation dose was kept as low as reasonably a chievable to obtain optimal diagnostic quality images. FINDINGS: There is marked central and cortical atrophy with dilatation of ventricular and sulcal spaces. There is no parenchymal hemorrhage, acute infarction or mass lesion identified. There are no extra-axial fluid collections appreciated. The posterior fossa is unremarkable with midline fourth ventricle. T he portion of the orbits and paranasal sinuses visualized are unremarkable. CONCLUSION: Negative for hemorrhage.. Jose Enrique Paredes MD FACR on June 10, 2016 at 15:40 Board Certified Radiologist. This report was verified electronically.
--- NOTE | 2016-06-10 17:34 | HHI.PR ---
Review/Management Diagnosis Acute ischemic right MCA infarction s/p iv tPA & mechanical clot retrieval Plan - Neuro checks Q4h - Start Aspirin 81 mg daily starting next am on 06/11/2016 - Statin - PT/OT, recommendations are appreciated - DVT prophylaxis, SCDs' - GI prophylaxis - May consider transfer from ICU tomorrow am, if remains stable from neurology standpoint. Diagnosis/Plan: Subjective Subjective Comments Remarkable improvement and regain of motor function on the left side s/p clot retrieval Complains of chest/rib pain Repeat head CT scan with no acute intracranial event, no bleeding Cleared for oral diet Active Medications Current Medications Medications (Trade) Dose Ordered Sig/Albert Route Start Time Stop Time Status Last Admin (Zofran Inj) 4 mg Q6HR PRN IV PUSH 06/09/16 15:30 (Trandate Inj) 10 mg Q2HR PRN IV PUSH 06/09/16 15:30 (Percocet 5-325 Mg) 1 tab Q4H PRN PO 06/09/16 17:15 06/10/16 10:01 (Morphine Inj) 4 mg Q4H PRN IV 06/09/16 18:00 06/10/16 11:30 Allergies Allergies Coded Allergies No Known Allergies (Verified06/09/16) Exam I&O / VS 06/09/16 06/09/16 06/10/16 15:00 23:00 07:00 Intake Total 633 ml 763 ml Output Total 0 ml 150 ml Balance 633 ml 613 ml Intake Oral 240 ml 240 ml IV Total 393 ml 523 ml Output Urine Total 0 ml 150 ml Vital Signs Date Time Temp Pulse Resp B/P Pulse Ox O2 Delivery O2 Flow Rate FiO2 06/10/16 16:00 63 06/10/16 16:00 98.1 63 14 107/51 100 06/10/16 14:00 65 06/10/16 12:00 55 06/10/16 12:00 98.1 55 12 97/44 100 06/10/16 11:05 12 06/10/16 10:00 65 06/10/16 08:00 98.3 60 15 95/45 99 06/10/16 08:00 60 06/10/16 07:49 95 06/10/16 07:00 97 Nasal Cannula 2.00 06/10/16 04:00 98.3 54 13 97/46 99 06/10/16 02:35 20 06/10/16 00:00 98.2 54 24 114/58 99 06/09/16 20:00 62 06/09/16 20:00 97.9 56 14 96/46 98 06/09/16 20:00 Nasal Cannula 2.00 06/09/16 18:00 60 General: Alert and Oriented, No acute distress Eye: PERRL, EOMI Respiratory: Non-labored respirations, Symmetrical expansion Cardiology: Normal rate, No murmur Neurologic: Alert, Oriented, CN II-XII intact, Normal DTR's, Other (Left UE 5-/ 5 shoulder abduction, hip flex, foot dorsiflex, other bergman 5/5 throughout. ) Psychiatric: Cooperative, Appropriate mood & affect Objective Radiology Results Last [address] 06/10/16 0000 Signed Impressions: Service Date/Time: Friday, June 10, 2016 15:10 - CONCLUSION: Negative for hemorrhage.. Jose Enrique Paredes MD FACR Cerebral Arteriogram 06/09/16 1354 Signed Impressions: Service Date/Time: Thursday, June 09, 2016 14:16 - CONCLUSION: 1. 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 Right vertebral artery originates from the right common carotid artery. Adebayo Mario MD Head CTA 06/09/16 1309 Signed Impressions: Service Date/Time: Thursday, June 09, 2016 13:22 - CONCLUSION: Occluded proximal M1 segment of the right middle cervical artery No other occlusive or stenotic lesions. Adebayo Mario MD Head CT 06/09/16 0000 Signed Impressions: Service Date/Time: Thursday, June 09, 2016 13:11 - CONCLUSION: No evidence of acute infarct or hemorrhage. Frontal lobe volume loss. Adebayo Mario MD Chest X-Ray 06/09/16 0000 Signed Impressions: Service Date/Time: Thursday, June 09, 2016 17:32 - CONCLUSION: No acute disease. Jose Enrique Paerdes MD FACR Micro and Labs Laboratory Tests Test 06/10/16 03:48 Sodium Level 138 Potassium Level 4.7 Chloride Level 106 Carbon Dioxide Level 23.6 Anion Gap 8 Blood Urea Nitrogen 46 Creatinine 1.80 Estimat Glomerular Filtration 27 Rate Random Glucose 92 Calcium Level 7.7 Total Bilirubin 0.4 Aspartate Amino Transf 20 (AST/SGOT) Alanine Aminotransferase 16 (ALT/SGPT) Alkaline Phosphatase 47 Total Protein 5.4 Albumin 2.5 Triglycerides Level 164 Cholesterol Level 129 LDL Cholesterol 56 HDL Cholesterol 40.1 Cholesterol/HDL Ratio 3.21 Carissa Fuller MD Jun 10, 2016 17:34
[2016-06-10] MEDS ORDERED: ZOLO50TA PO (19:48)
[2016-06-10] MEDS ORDERED: CLON.5 PO (19:48)
--- NOTE | 2016-06-10 20:43 | EKG ---
Date Performed: 06/09/2016 Time Performed: 13:37:15 PTAGE: 85 years EKG: Sinus rhythm WITH MARKED SINUS ARRHYTHMIA AND PACS PROLONGED QT INTERVAL ABNORMAL ECG PREVIOUS TRACING : 03/07/2010 01.23 Compared to prior tracing no significant change DOCTOR: Natty Tobar Interpretating Date/Time 06/10/2016 20:40:59
[2016-06-10] MEDS: REMOVE OLD LIDOCAINE PATCH TD SCH (23:00)
[2016-06-10] MEDS: LIDOCAINE HCL 5% PATCH TD SCH (23:15)
[2016-06-11] VITALS (10 sets, daily range): BP systolic 99–125; BP diastolic 46–58; PULSE 68–80; RESP 15–22; TEMP 97.6–101.1; O2SAT 92–97
[2016-06-11] MEDS: MORPHINE SULFATE 4 MG/ML INJ IV PRN ×4 (03:48→19:58)
[2016-06-11 04:47] LABS: HEMATOCRIT 26.5 % (35.0-46.0); MEAN CELL VOLUME 94.8 FL (80.0-100.0); MEAN CORPUSCULAR HEMOGLOBIN 32.7 PG (27.0-34.0); MEAN CORPUSCULAR HGB CONC 34.5 % (32.0-36.0); PLATELET COUNT 142 TH/MM3 (150-450); RED CELL DISTRIBUTION WIDTH 13.7 % (11.6-17.2); REVIEW FLAG FINAL; WHITE BLOOD COUNT 6.6 TH/MM3 (4.0-11.0)
[2016-06-11 04:50] LABS: BICARBONATE 22.8 MEQ/L (21.0-32.0); POTASSIUM 4.6 MEQ/L (3.5-5.1)
--- NOTE | 2016-06-11 07:32 | HHI.PR ---
Subjective Remarks Patient seen at bedside. Patient c/o left rib pain. Reported that lidoderm patch was helpful but it is still very painful. Objective Vital Signs Date Time Temp Pulse Resp B/P Pulse Ox O2 Delivery O2 Flow Rate FiO2 06/11/16 04:00 98.0 70 18 109/52 97 06/11/16 00:00 98.2 72 21 107/51 97 06/10/16 22:01 99 1.00 06/10/16 20:00 73 06/10/16 20:00 Nasal Cannula 2.00 06/10/16 20:00 98.3 74 24 110/56 98 06/10/16 18:00 59 06/10/16 16:00 63 06/10/16 16:00 98.1 63 14 107/51 100 06/10/16 14:00 65 06/10/16 12:00 55 06/10/16 12:00 98.1 55 12 97/44 100 06/10/16 11:05 12 06/10/16 10:00 65 06/10/16 08:00 98.3 60 15 95/45 99 06/10/16 08:00 60 06/10/16 07:49 95 I/O 06/10/16 06/10/16 06/10/16 06/11/16 06/11/16 06/11/16 07:00 15:00 23:00 07:00 15:00 23:00 Intake Total 763 ml 1207 ml 646 ml 467 ml Output Total 150 ml 0 ml 225 ml Balance 613 ml 1207 ml 421 ml 467 ml Intake Oral 240 ml 360 ml 360 ml IV Total 523 ml 847 ml 286 ml 467 ml Output Urine Total 150 ml 0 ml 225 ml # Voids 2 1 Result Diagram: 06/11/16 0337 06/11/16 0337 Imaging Last [address] 06/10/16 0000 Signed Impressions: Service Date/Time: Friday, June 10, 2016 15:10 - CONCLUSION: Negative for hemorrhage.. Jose Enrique Paredes MD FACR Cerebral Arteriogram 06/09/16 1354 Signed Impressions: Service Date/Time: Thursday, June 09, 2016 14:16 - CONCLUSION: 1. 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 Right vertebral artery originates from the right common carotid artery. Adebayo Mario MD Head CTA 06/09/16 1309 Signed Impressions: Service Date/Time: Thursday, June 09, 2016 13:22 - CONCLUSION: Occluded proximal M1 segment of the right middle cervical artery No other occlusive or stenotic lesions. Adebayo Mario MD Other Results Physical Exam GENERAL: This is a well-nourished, well-developed patient, in no apparent distress. SKIN: No rashes, ecchymoses or lesions. Cool and dry. HEAD: Atraumatic. Normocephalic. EYES: Pupils equal round and reactive. NECK: Trachea midline. No JVD. Neck supple and nontender. CARDIOVASCULAR: Regular rate and rhythm without murmurs, gallops, or rubs. RESPIRATORY: Clear to auscultation. Breath sounds equal bilaterally. No wheezes , rales, or rhonchi. GASTROINTESTINAL: Abdomen soft, non-tender, nondistended. MUSCULOSKELETAL: Extremities without cyanosis or edema. No edema noted. No calf tenderness. Negative Homans sign bilaterally. NEUROLOGICAL: Awake and alert. Normal speech. Medications and IVs Current Medications Medications (Trade) Dose Ordered Sig/Albert Route Start Time Stop Time Status Last Admin (Zofran Inj) 4 mg Q6HR PRN IV PUSH 06/09/16 15:30 (Trandate Inj) 10 mg Q2HR PRN IV PUSH 06/09/16 15:30 (Percocet 5-325 Mg) 1 tab Q4H PRN PO 06/09/16 17:15 06/10/16 10:01 (Morphine Inj) 4 mg Q4H PRN IV 06/09/16 18:00 06/11/16 08:45 (Ecotrin Ec) 81 mg DAILY PO 06/11/16 09:00 06/11/16 08:34 (Lidoderm 5% Patch.12 Hr) 1 patch Q24H TD 06/10/16 23:00 06/10/16 23:15 Miscellaneous Information 1 Q24H TD 06/10/16 23:00 Assessment and Plan Problem List: (1) Acute ischemic left MCA stroke Status: Acute Plan: Patient is s/p TPA and clot removal. Patient with minimal left sided weakness. PT ordered following. ASA and statin started. (2) Rib pain on left side Status: Acute Plan: Lidoderm patch ordered which helped. 2 view chest xray ordered. Incentive spirometry ordered. (3) Hypertension Status: Acute Plan: Patients B/P 100/59 Not on medication. Will monitor. (4) Chronic kidney disease (CKD) stage G3b/A2, moderately decreased glomerular filtration rate (GFR) between 30-44 mL/min/1.73 square meter and albuminuria creatinine ratio between 30-299 mg/g Status: Acute Plan: GFR improved at 37. Will monitor. (5) Hyperlipidemia Status: Acute Plan: Will monitor. Lipid WNL (6) Depression Status: Acute Plan: Zoloft restarted. Discussed Condition With Assessment and plan discussed with Dr. Antony Discharge Planning Plan to discharge to Rehab Krupa Charlton Jun 11, 2016 07:32
[2016-06-11] MEDS: ASPIRIN EC 81 MG TABEC PO SCH ×2 (08:34→09:00)
[2016-06-11] MEDS: SERTRALINE HCL 50 MG TAB PO SCH (12:23)
--- NOTE | 2016-06-11 14:43 | RADRPT ---
EXAM DATE/TIME: 06/11/2016 13:52 [facility] COMPARISON: CHEST SINGLE AP, June 09, 2016, 17:32. INDICATIONS : Shortness of breath, Pleurisy. MEDICAL HISTORY : Stroke. SURGICAL HISTORY : None. ENCOUNTER: Subsequent ACUITY: 3 days PAIN SCORE: 0/10 LOCATION: chest FINDINGS: PA and lateral views of the chest were obtained and demonstrate a small to moderate left effusion wit h blunting of the lateral and posterior costophrenic angle. The right lung is clear. The heart size a t the upper limits of normal. There are atherosclerotic changes in the aorta. Multiple overlying elec trocardiogram leads are present. The bony thorax is intact with an old healed left posterior rib frac ture. CONCLUSION: 1. Small to moderate left effusion. 2. No evidence of pulmonary edema. Sushil Carbajal MD on June 11, 2016 at 14:40 Board Certified Radiologist. This report was verified electronically.
[2016-06-11] MEDS: ATORVASTATIN 20 MG TAB PO SCH (21:44)
[2016-06-11] MEDS: oxyCODONE/ACETAMINOPHEN 5 MG/325 MG TAB PO PRN (21:49)
[2016-06-11] MEDS: REMOVE OLD LIDOCAINE PATCH TD SCH (21:52)
[2016-06-11] MEDS: LIDOCAINE HCL 5% PATCH TD SCH (21:57)
[2016-06-11] MEDS ORDERED: ACETAMINOPHEN 325 MG TAB PO PRN (23:30)
[2016-06-12] VITALS (11 sets, daily range): BP systolic 88–120; BP diastolic 41–68; PULSE 54–85; RESP 18–22; TEMP 97.3–99.1; O2SAT 92–98
[2016-06-12 06:00] LABS: HEMATOCRIT 22.4 % (35.0-46.0); MEAN CELL VOLUME 92.7 FL (80.0-100.0); MEAN CORPUSCULAR HEMOGLOBIN 31.5 PG (27.0-34.0); PLATELET COUNT 123 TH/MM3 (150-450); RED BLOOD COUNT 2.41 MIL/MM3 (4.00-5.30); RED CELL DISTRIBUTION WIDTH 13.5 % (11.6-17.2); REVIEW FLAG FINAL; WHITE BLOOD COUNT 8.6 TH/MM3 (4.0-11.0)
[2016-06-12 06:27] LABS: BICARBONATE 23.3 MEQ/L (21.0-32.0); POTASSIUM 4.3 MEQ/L (3.5-5.1)
[2016-06-12] MEDS: SERTRALINE HCL 50 MG TAB PO SCH (09:18)
[2016-06-12] MEDS: ASPIRIN EC 81 MG TABEC PO SCH (09:18)
[2016-06-12] MEDS: oxyCODONE/ACETAMINOPHEN 5 MG/325 MG TAB PO PRN ×3 (09:25→21:10)
--- NOTE | 2016-06-12 11:39 | HHI.PR ---
Subjective Remarks Patient seen at bedside. Patient c/o left rib pain. Taking morphine as needed for pain. Reported that lidoderm patch is helpful but it is still very painful. Patient c/o increased cough. Objective Vital Signs Date Time Temp Pulse Resp B/P Pulse Ox O2 Delivery O2 Flow Rate FiO2 06/12/16 09:28 98 Nasal Cannula 2.00 06/12/16 08:58 97.7 54 18 88/41 95 06/12/16 05:15 92 Nasal Cannula 2.00 06/12/16 04:30 99.0 85 22 118/68 92 06/12/16 00:00 99.1 84 21 120/65 92 06/11/16 22:40 99.7 80 21 125/58 92 06/11/16 17:40 100.2 74 18 110/50 94 06/11/16 14:50 94 Nasal Cannula 2.00 06/11/16 14:30 101.1 76 18 99/46 94 06/11/16 14:00 78 06/11/16 12:00 76 06/11/16 12:00 97.6 74 15 117/53 95 I/O 06/11/16 06/11/16 06/11/16 06/12/16 06/12/16 06/12/16 07:00 15:00 23:00 07:00 15:00 23:00 Intake Total 467 ml 1384 ml 250 ml 0 ml Output Total 100 ml 800 ml Balance 467 ml 1384 ml 150 ml -800 ml Intake Oral 709 ml 250 ml 0 ml IV Total 467 ml 675 ml Output Urine Total 100 ml 800 ml # Voids 1 2 0 # Bowel Movements 0 0 Result Diagram: 06/12/1652006/12/1621 Other Results GENERAL: This is a well-nourished, well-developed patient, in no apparent distress. SKIN: No rashes, ecchymoses or lesions. Cool and dry. HEAD: Atraumatic. Normocephalic. EYES: Pupils equal round and reactive. NECK: Trachea midline. No JVD. Neck supple and nontender. CARDIOVASCULAR: Regular rate and rhythm without murmurs, gallops, or rubs. RESPIRATORY: Clear to auscultation. Breath sounds equal bilaterally. No wheezes , rales, or rhonchi. GASTROINTESTINAL: Abdomen soft, non-tender, nondistended. MUSCULOSKELETAL: Extremities without cyanosis or edema. No edema noted. No calf tenderness. Negative Homans sign bilaterally. NEUROLOGICAL: Awake and alert. Normal speech. Objective Remarks Last 48 hours Impressions Chest X-Ray 06/11/16 0000 Signed Impressions: Service Date/Time: May 13:52 - CONCLUSION: 1. Small to moderate left effusion. 2. No evidence of pulmonary edema. Sushil Carbajal MD Medications and IVs Current Medications Medications (Trade) Dose Ordered Sig/Albert Route Start Time Stop Time Status Last Admin (Zofran Inj) 4 mg Q6HR PRN IV PUSH 06/09/16 15:30 (Trandate Inj) 10 mg Q2HR PRN IV PUSH 06/09/16 15:30 (Percocet 5-325 Mg) 1 tab Q4H PRN PO 06/09/16 17:15 06/12/16 09:25 (Morphine Inj) 4 mg Q4H PRN IV 06/09/16 18:00 06/11/16 19:58 (Ecotrin Ec) 81 mg DAILY PO 06/11/16 09:00 06/12/16 09:18 (Lidoderm 5% Patch.12 Hr) 1 patch Q24H TD 06/10/16 23:00 06/11/16 21:57 Miscellaneous Information 1 Q24H TD 06/10/16 23:00 06/11/16 21:52 (Zoloft) 50 mg DAILY PO 06/11/16 12:00 06/12/16 09:18 (Lipitor) 20 mg HS PO 06/11/16 21:00 06/11/16 21:44 (Tylenol) 650 mg Q4H PRN PO 06/11/16 23:30 Assessment and Plan Problem List: (1) Acute ischemic left MCA stroke Status: Acute Plan: Patient is s/p TPA and clot removal. Patient with minimal left sided weakness. PT ordered following. ASA and statin started. (2) Rib pain on left side Status: Acute Plan: Lidoderm patch ordered which helped. 2 view chest xray ordered. Small to moderate effusion noted. Pulmonary consulted for increased cough. US ordered. Incentive spirometry ordered. (3) Hypertension Status: Acute Plan: Patients B/P 100/59 Not on medication. Will monitor. (4) Chronic kidney disease (CKD) stage G3b/A2, moderately decreased glomerular filtration rate (GFR) between 30-44 mL/min/1.73 square meter and albuminuria creatinine ratio between 30-299 mg/g Status: Acute Plan: GFR improved at 40. Will monitor. (5) Hyperlipidemia Status: Acute Plan: Will monitor. Lipid WNL (6) Depression Status: Acute Plan: Zoloft restarted. (7) Constipation Status: Acute Plan: Senna and Miralax added daily. Discussed Condition With Assessment and plan discussed with Dr. Antony Discharge Planning Plan to discharge to rehab Krupa Charlton Jun 12, 2016 11:39
--- NOTE | 2016-06-12 12:46 | RADRPT ---
EXAM DATE/TIME: 06/12/2016 11:56 [facility] COMPARISON: CHEST PA & LAT, June 11, 2016, 13:52. INDICATIONS : Shortness of breath. MEDICAL HISTORY : Hypertension. Arthritis. SURGICAL HISTORY : Tonsillectomy. Right arm surgery. ENCOUNTER: Initial ACUITY: 1 day PAIN SCORE: 1/10 LOCATION: Left chest MEASUREMENTS: SKIN TO PARIETAL PLEURA: 2.4 cm SKIN TO MAX SAFE DEPTH: 4.2 cm ESTIMATED FLUID VOLUME: 479 cc FLUID COMPOSITION: simple FINDINGS: Pleural effusion as above. A roel was placed on the skin surface superficial to the pleural fluid col lection. CONCLUSION: Small left pleural effusion marked for thoracentesis. Adebayo Mario MD on June 12, 2016 at 12:44 Board Certified Radiologist. This report was verified electronically.
[2016-06-12] MEDS: DOCUSATE SODIUM 50 MG/SENNA 8.6 MG TAB PO SCH (14:45)
[2016-06-12] MEDS: POLYETHYLENE GLYCOL 17 GM PKG PO SCH (14:45)
[2016-06-12] MEDS: guaiFENesin E.R. 600 MG TAB PO SCH ×2 (14:45→21:09)
--- NOTE | 2016-06-12 17:26 | MB ---
cc: ERNESTINE SINHA DATE OF CONSULTATION: 06/12/2016 REASON FOR CONSULTATION: Pleural effusion Chronic obstructive pulmonary disease post cerebrovascular accident. HISTORY OF PRESENT ILLNESS Mrs. Andino is an 85-year-old female who known history of hypertension, chronic kidney disease and a long heavy smoking history, who continue to smoke up until about two weeks ago. The patient had an acute onset of confusion facial droop and left-sided weakness started to fall, her friend did grab her and keep her standing. She was hospitalized for same, found to have a right CVA from which she is recovering at present. She does have a chronic cough which persists during her hospitalization minimal expectoration, white mucoid secretion denies history of fever, chills, hemoptysis, TB or previous industrial exposure. PAST MEDICAL HISTORY: Hypertension Chronic kidney disease Question chronic obstructive pulmonary disease as outlined above. SOCIAL HISTORY Smokes a half pack of cigarettes a day up until the time of hospitalization, until about two weeks ago prior to her hopsitalizations. ALLERGIES None known to medication. CURRENT MEDICATIONS Include 1. Lipitor. 2. Zoloft 3. Ecotrin 4. Trandate 5. Percocet p.r.n. FAMILY HISTORY Noncontributory. REVIEW OF SYSTEMS The 12-point review of systems as per HPI and past history otherwise negative. PHYSICAL EXAMINATION: VITAL SIGNS: On exam temperature 97.7, pulse 54, respirations 18, blood pressure 100/52. HEAD, EYES, EARS, NOSE, AND THROAT: Exam unremarkable. Eyes without icterus. NECK: The neck was without adenopathy. Thyroid enlargement. Central trachea. CHEST: Decreased breath sounds left base. CARDIAC: Cardiac exam PMI not appreciated. S1, S2 audible. No murmur, no rub. ABDOMEN: Lax bowel sounds audible. EXTREMITIES: No clubbing, cyanosis or edema. SKIN: Normal. No lymphadenopathy. LABORATORY DATA Chest x-ray With small left pleural effusion. White count 8.6, hemoglobin 7.6, platelets 123,000, sodium 138, potassium 4.3, BUN 33, creatinine 1.2. IMPRESSION 1. Acute cerebrovascular accident. 2. Small left pleural effusion. 3. probable COPD suggested by history. 4. persistent cough related to COPD or airway hyperreactivity or other. 5. Chronic kidney disease. 6. Hypertension. PLAN: The patient's main, concern now is a persistent cough and excess mucoid secretion she was using Mucinex at home becoming coming into the hospital and bronchodilator would be appropriate to help her probable COPD as well as her cough and excess mucoid secretion. She is given Symbicort to use 1 inhalation twice a day. Her pleural effusion is small, I would avoid thoracentesis if at all possible. The patient does have some left-sided chest pain, she probably did have a left chest contusion in attempt to lift her up while she was falling after her Cerebrovascular accident. A rib fracture would not be surprising as well, although I have not seen on chest x-ray. We will obtain a CT scan of the chest to see of there is a fracture and if indeed the pleural effusion is large enough to be concerned about. At least at this time, If this is the case we will proceed with thoracentesis, if not then observation would suffice. Nebulized albuterol to help mobilize secretion as well would be appropriate. Will obtain PFT when the patient is able to, which I am not sure she will actually, given her recent stroke and generalized weakness. I do thank you for asking to partake in Mrs. Andino's care. Ernestine Sinha MD WWW/ /4:24 PM /5:11 PM
--- NOTE | 2016-06-12 17:59 | HHI.PR ---
Review/Management Diagnosis Acute ischemic right MCA infarction s/p iv tPA & mechanical clot retrieval Plan - Neuro checks Q4h - Aspirin 81 mg daily, started on 06/11/2016 - Statin - PT/OT, recommendations are appreciated - DVT prophylaxis, SCDs' - GI prophylaxis - May consider transfer to inpatient rehab Diagnosis/Plan: Subjective Subjective Comments Stable from neurology standpoint Working well with PT Still complains of chest pain. Active Medications Current Medications Medications (Trade) Dose Ordered Sig/Albert Route Start Time Stop Time Status Last Admin (Zofran Inj) 4 mg Q6HR PRN IV PUSH 06/09/16 15:30 (Trandate Inj) 10 mg Q2HR PRN IV PUSH 06/09/16 15:30 (Percocet 5-325 Mg) 1 tab Q4H PRN PO 06/09/16 17:15 06/12/16 14:49 (Morphine Inj) 4 mg Q4H PRN IV 06/09/16 18:00 06/11/16 19:58 (Ecotrin Ec) 81 mg DAILY PO 06/11/16 09:00 06/12/16 09:18 (Lidoderm 5% Patch.12 Hr) 1 patch Q24H TD 06/10/16 23:00 06/11/16 21:57 Miscellaneous Information 1 Q24H TD 06/10/16 23:00 06/11/16 21:52 (Zoloft) 50 mg DAILY PO 06/11/16 12:00 06/12/16 09:18 (Lipitor) 20 mg HS PO 06/11/16 21:00 06/11/16 21:44 (Tylenol) 650 mg Q4H PRN PO 06/11/16 23:30 (Mariebl-Colace) 2 tab DAILY PO 06/12/16 12:00 06/12/16 14:45 (Miralax) 17 gm DAILY PO 06/12/16 12:00 06/12/16 14:45 (Mucinex Er) 600 mg BID PO 06/12/16 11:30 06/12/16 14:45 Allergies Allergies Coded Allergies No Known Allergies (Verified06/09/16) Exam I&O / VS 06/11/16 06/11/16 06/12/16 15:00 23:00 07:00 Intake Total 1384 ml 250 ml 0 ml Output Total 100 ml 800 ml Balance 1384 ml 150 ml -800 ml Intake Oral 709 ml 250 ml 0 ml IV Total 675 ml Output Urine Total 100 ml 800 ml # Voids 2 0 # Bowel Movements 0 0 Vital Signs Date Time Temp Pulse Resp B/P Pulse Ox O2 Delivery O2 Flow Rate FiO2 06/12/16 16:15 98.4 57 18 117/51 96 06/12/16 12:31 97.3 56 18 96 06/12/16 11:32 102/52 06/12/16 09:28 98 Nasal Cannula 2.00 06/12/16 08:58 97.7 54 18 88/41 95 06/12/16 08:30 Nasal Cannula 2.00 06/12/16 05:15 92 Nasal Cannula 2.00 06/12/16 04:30 99.0 85 22 118/68 92 06/12/16 00:00 99.1 84 21 120/65 92 06/11/16 22:40 99.7 80 21 125/58 92 General: Alert and Oriented, No acute distress Eye: PERRL, EOMI Respiratory: Non-labored respirations, Symmetrical expansion Cardiology: Normal rate, No murmur Neurologic: Alert, Oriented, CN II-XII intact, Normal DTR's, Other (Left UE 5-/ 5 shoulder abduction, hip flex, foot dorsiflex, other bergman 5/5 throughout. ) Psychiatric: Cooperative, Appropriate mood & affect Objective Radiology Results Last 72 hours Impressions Chest Ultrasound 06/12/16 0000 Signed Impressions: Service Date/Time: Sunday, June 12, 2016 11:56 - CONCLUSION: Small left pleural effusion marked for thoracentesis. Adebayo Mario MD Chest X-Ray 06/11/16 0000 Signed Impressions: Service Date/Time: May 13:52 - CONCLUSION: 1. Small to moderate left effusion. 2. No evidence of pulmonary edema. Sushil Carbajal MD Head CT 06/10/16 0000 Signed Impressions: Service Date/Time: Friday, June 10, 2016 15:10 - CONCLUSION: Negative for hemorrhage.. Jose Enrique Paredes MD FACR Micro and Labs Laboratory Tests Test 06/12/16 06/12/16 05:21 12:08 White Blood Count 8.6 Red Blood Count 2.41 Hemoglobin 7.6 Hematocrit 22.4 Mean Corpuscular Volume 92.7 Mean Corpuscular Hemoglobin 31.5 Mean Corpuscular Hemoglobin 34.0 Concent Red Cell Distribution Width 13.5 Platelet Count 123 Mean Platelet Volume 8.1 Sodium Level 138 Potassium Level 4.3 Chloride Level 108 Carbon Dioxide Level 23.3 Anion Gap 7 Blood Urea Nitrogen 33 Creatinine 1.27 Estimat Glomerular Filtration 40 Rate Random Glucose 106 Calcium Level 8.1 Blood Type A POSITIVE Antibody Screen NEGATIVE Crossmatch Leukocyte-Reduced Red Blood Cells Blood Bank Comment Carissa Fuller MD Jun 12, 2016 17:59
--- NOTE | 2016-06-12 18:37 | RADRPT ---
EXAM DATE/TIME: 06/12/2016 17:32 [facility] COMPARISON: No previous studies available for comparison. INDICATIONS : Trauma; fall. Left chest pain and dyspnea. RADIATION DOSE: 5.13 CTDIvol (mGy) MEDICAL HISTORY : Hypertension. Cardiovascular disease SURGICAL HISTORY : Tonsillectomy. ENCOUNTER: Initial ACUITY: 1 day PAIN SCALE: 8/10 LOCATION: chest TECHNIQUE: Volumetric scanning of the chest was performed. Using automated exposure control and adjustment of t he mA and/or kV according to patient size, radiation dose was kept as low as reasonably achievable to obtain optimal diagnostic quality images. FINDINGS: There are multiple displaced left posterior rib fractures which appear acute or subacute. There is a moderate-sized left pleural effusion with compressive atelectasis in the left lung. There is consolid ation at the right lung base within the right lower lobe with some air bronchograms and peribronchial thickening most characteristic of pneumonia or aspiration. There is mucoid plugging or debris within the bronchus intermedius. There is previous kyphoplasty in the lower thoracic spine. Aorta atherosclerotic and tortuous. There is no hilar, mediastinal axillary adenopathy. Abdomen reveals constipation. Numerous gallstones in the gallbladder. CONCLUSION: 1. Multiple mildly displaced left posterior rib fractures with moderate-sized left pleural effusion a nd atelectasis or consolidation of the left lower lobe. 2. Mucoid impaction or aspirated material within the bronchus intermedius and lower lobe segmental br onchi associated with dense consolidation of the right lower lobe and small right effusion. 3. Mild to moderate coronary calcifications. 4. Numerous gallstones. Constipation. Candido Patino MD on June 12, 2016 at 18:32 Board Certified Radiologist. This report was verified electronically.
[2016-06-12] MEDS: ATORVASTATIN 20 MG TAB PO SCH (21:09)
--- NOTE | 2016-06-12 22:07 | PD.CONS ---
[facility] Service Rehabilitation Medicine Consult Requested By Dr. Chua Reason for Consult Comprehensive rehabilitation evaluation. Primary Care Physician Fabio Antony DO History of Present Illness Liyah Andino is an 85 year old right hand dominant female admitted to [facility] 06[facility]09/16 with confusion, left facial droop, left sided weakness who collapsed. Head CT was negative. She received IV tPA followed by right MCA thrombectomy. She was also found to have small/moderate left pleural effusion and is for possible thoracentesis. Hgb 7.6 on 06/12/16. Review of Systems Constitutional: COMPLAINS OF: Fatigue Eyes: DENIES: Diplopia Ears, nose, mouth, throat: DENIES: Throat pain Respiratory: COMPLAINS OF: Cough, DENIES: Shortness of breath Cardiovascular: COMPLAINS OF: Chest pain (Left ribs) Gastrointestinal: DENIES: Abdominal pain Genitourinary: DENIES: Urinary incontinence Musculoskeletal: DENIES: Back pain Integumentary: DENIES: Pruritus Hematologic/lymphatic: DENIES: Bruising Immunologic/allergic: DENIES: Urticaria Neurologic: COMPLAINS OF: Poor Balance, DENIES: Headache, Speech Problems Psychiatric: DENIES: Confusion Past Family Social History Allergies: Coded Allergies: No Known Allergies (Verified , 06/09/16) Past Medical History HTN CKD Past Surgical History None noted Current Medications Current Medications Medications (Trade) Dose Ordered Sig/Albert Route Start Time Stop Time Status Last Admin (Zofran Inj) 4 mg Q6HR PRN IV PUSH 06/09/16 15:30 (Trandate Inj) 10 mg Q2HR PRN IV PUSH 06/09/16 15:30 (Percocet 5-325 Mg) 1 tab Q4H PRN PO 06/09/16 17:15 06/12/16 21:10 (Morphine Inj) 4 mg Q4H PRN IV 06/09/16 18:00 06/11/16 19:58 (Ecotrin Ec) 81 mg DAILY PO 06/11/16 09:00 06/12/16 09:18 (Lidoderm 5% Patch.12 Hr) 1 patch Q24H TD 06/10/16 23:00 06/11/16 21:57 Miscellaneous Information 1 Q24H TD 06/10/16 23:00 06/11/16 21:52 (Zoloft) 50 mg DAILY PO 06/11/16 12:00 06/12/16 09:18 (Lipitor) 20 mg HS PO 06/11/16 21:00 06/12/16 21:09 (Tylenol) 650 mg Q4H PRN PO 06/11/16 23:30 (Maribel-Colace) 2 tab DAILY PO 06/12/16 12:00 06/12/16 14:45 (Miralax) 17 gm DAILY PO 06/12/16 12:00 06/12/16 14:45 (Mucinex Er) 600 mg BID PO 06/12/16 11:30 06/12/16 21:09 Family History Mother: , CVA Father: , [place] Social History Prior to admission lives with friend and independent with mobility and ADL's Exam I&O / VS 06/11/16 06/11/16 06/12/16 15:00 23:00 07:00 Intake Total 1384 ml 250 ml 0 ml Output Total 100 ml 800 ml Balance 1384 ml 150 ml -800 ml Intake Oral 709 ml 250 ml 0 ml IV Total 675 ml Output Urine Total 100 ml 800 ml # Voids 2 0 # Bowel Movements 0 0 Vital Signs Date Time Temp Pulse Resp B/P Pulse Ox O2 Delivery O2 Flow Rate FiO2 06/12/16 20:22 97 Nasal Cannula 2.00 06/12/16 16:15 98.4 57 18 117/51 96 06/12/16 12:31 97.3 56 18 96 06/12/16 11:32 102/52 06/12/16 09:28 98 Nasal Cannula 2.00 06/12/16 08:58 97.7 54 18 88/41 95 06/12/16 08:30 Nasal Cannula 2.00 06/12/16 05:15 92 Nasal Cannula 2.00 06/12/16 04:30 99.0 85 22 118/68 92 06/12/16 00:00 99.1 84 21 120/65 92 06/11/16 22:40 99.7 80 21 125/58 92 General: No acute distress, Other (NC O2 in place 3 liters) Respiratory: Lungs CTA, Non-labored respirations, BS equal, Coarse breath sounds Gastrointestinal: Non-Distended, Non-Tender Cardiovascular: Normal rate, Regular Rhythm Skin: Other (No rash noted) Musculoskeletal: Tenderness (SCD's in place) Psychiatric: Cooperative, Appropriate mood & affect Orientation: oriented to Self, oriented to Place, oriented to Time, oriented to Situation Neurologic: Pupils (PERRLA), Visual Adan (intact), Facial Symmetry (Mild left facial droop), Speech (Intelligible; no word finding difficulty or paraphrasic errors.) Motor: Right Upper Extremity (5/5), Left Upper Extremity (4+/5), Right Lower Extremity (5/5), Left Lower Extremity (4+/5) Sensory Intact to light touch in both UE and LE DTRs: Normal (1+) Clonus: Negative Assessment and Plan Diagnosis: (1) Acute ischemic right MCA stroke Assessment 1. Right MCA CVA S/P IV tPA and right MCA thrombectomy with left facial droop and left hemiparesis 2. Left pleural effusion 3. Anemia 4. HTN 5. CKD Plan 1. Patient progressing with PT and now min assist for transfers and ambulating with rolling walker 15 feet times 2. Continue to mobilize anticipating that patient should progress well. 2. OT addressing ADL's and now min assist for UE dressing and max assist for LE dressing. 3. ST has evaluated swallow and tolerating regular diet. Moderate cognitive impairments being addressed 4. Case management working with family for discharge planning when medically cleared. Thoracentesis being considered and anemia being addressed. 5. Will follow Thank you for this consult. Isabel Ramires MD Jun 12, 2016 22:07
[2016-06-12] MEDS: REMOVE OLD LIDOCAINE PATCH TD SCH (23:00)
--- NOTE | 2016-06-12 23:00 | EKG ---
Date Performed: 06/11/2016 Time Performed: 12:35:08 PTAGE: 85 years EKG: Sinus rhythm with PAC(s). Lead(s) unsuitable for analysis: V6 Anteroseptal T wave changes are nonspecific Borderl ine ECG NO PREVIOUS TRACING DOCTOR: Marlyin Epstein Interpretating Date/Time 06/12/2016 22:52:16
[2016-06-12] MEDS: LIDOCAINE HCL 5% PATCH TD SCH (23:38)
[2016-06-13] VITALS (19 sets, daily range): BP systolic 102–138; BP diastolic 51–74; PULSE 64–83; RESP 12–21; TEMP 97.6–99; O2SAT 74–99
[2016-06-13] MEDS: oxyCODONE/ACETAMINOPHEN 5 MG/325 MG TAB PO PRN ×4 (03:13→23:21)
[2016-06-13] MEDS: RESP: ALBUTEROL CONC 2.5 MG/0.5 ML NEB NEB SCH ×4 (03:33→19:45)
[2016-06-13] MEDS: ASPIRIN EC 81 MG TABEC PO SCH (08:11)
[2016-06-13] MEDS: guaiFENesin E.R. 600 MG TAB PO SCH ×2 (08:11→23:20)
[2016-06-13] MEDS: DOCUSATE SODIUM 50 MG/SENNA 8.6 MG TAB PO SCH (08:11)
[2016-06-13] MEDS: POLYETHYLENE GLYCOL 17 GM PKG PO SCH (08:11)
[2016-06-13] MEDS: SERTRALINE HCL 50 MG TAB PO SCH (08:11)
[2016-06-13 08:17] LABS: BICARBONATE 26.3 MEQ/L (21.0-32.0); POTASSIUM 4.2 MEQ/L (3.5-5.1)
[2016-06-13 08:25] LABS: AUTOMATED NEUTROPHIL # 8.5 TH/MM3 (1.8-7.7); BASOPHIL % 0.2 % (0.0-2.0); EOSINOPHIL % 0.3 % (0.0-4.0); LYMPH % 8.5 % (9.0-44.0); LYMPHOCYTE # 0.8 TH/MM3 (1.0-4.8); MEAN CELL VOLUME 92.6 FL (80.0-100.0); MEAN CORPUSCULAR HEMOGLOBIN 31.4 PG (27.0-34.0); PLATELET COUNT 107 TH/MM3 (150-450); RED BLOOD COUNT 2.25 MIL/MM3 (4.00-5.30); RED CELL DISTRIBUTION WIDTH 12.8 % (11.6-17.2); WHITE BLOOD COUNT 9.7 TH/MM3 (4.0-11.0)
[2016-06-13 09:18] LABS: HEMO FLAGS DIFF FINAL
[2016-06-13 09:21] LABS: HEMATOCRIT 20.8 % (35.0-46.0)
--- NOTE | 2016-06-13 10:29 | HHI.PR ---
Subjective Remarks pt anemia worsens today hgb 7.1 Objective Vital Signs Date Time Temp Pulse Resp B/P Pulse Ox O2 Delivery O2 Flow Rate FiO2 06/13/16 07:20 97.7 83 20 117/56 92 06/13/16 04:00 97.8 74 21 130/74 92 06/13/16 03:36 90 Nasal Cannula 2.00 06/13/16 00:30 98.0 69 20 125/70 92 06/12/16 20:30 97.7 78 21 120/68 92 06/12/16 20:22 97 Nasal Cannula 2.00 06/12/16 20:00 92 Nasal Cannula 2.00 06/12/16 16:15 98.4 57 18 117/51 96 06/12/16 12:31 97.3 56 18 96 06/12/16 11:32 102/52 I/O 06/12/16 06/12/16 06/12/16 06/13/16 06/13/16 06/13/16 07:00 15:00 23:00 07:00 15:00 23:00 Intake Total 0 ml 480 ml 600 ml 350 ml Output Total 800 ml Balance -800 ml 480 ml 600 ml 350 ml Intake Oral 0 ml 480 ml 600 ml 350 ml Output Urine Total 800 ml # Voids 1 1 2 # Bowel Movements 0 0 0 Result Diagram: 06/13/1673906/13/1640 Objective Remarks GENERAL: SKIN: Warm and dry. HEAD: Atraumatic. Normocephalic. EYES: Pupils equal and round. No scleral icterus. No injection or drainage. ENT: No nasal bleeding or discharge. Mucous membranes pink and moist. NECK: Trachea midline. No JVD. CARDIOVASCULAR: Regular rate and rhythm. RESPIRATORY: No accessory muscle use. Clear to auscultation. Breath sounds equal bilaterally. GASTROINTESTINAL: Abdomen soft, non-tender, nondistended. Hepatic and splenic margins not palpable. MUSCULOSKELETAL: Extremities without clubbing, cyanosis, or edema. No obvious deformities. NEUROLOGICAL: Awake and alert. No obvious cranial nerve deficits. generaliized weakness present Normal speech. PSYCHIATRIC: Appropriate mood and affect; insight and judgment normal. Medications and IVs Current Medications Medications (Trade) Dose Ordered Sig/Albert Route PRN Reason Start Time Stop Time Status Last Admin Dose Admin Ondansetron HCl (Zofran Inj) 4 mg Q6HR PRN IV PUSH nausea/ vomiting 06/09/16 15:30 Labetalol HCl (Trandate Inj) 10 mg Q2HR PRN IV PUSH SBP greater than 180mm Hg 06/09/16 15:30 Oxycodone/ Acetaminophen (Percocet 5-325 Mg) 1 tab Q4H PRN PO PAIN 1-10 06/09/16 17:15 06/13/16 08:11 Morphine Sulfate (Morphine Inj) 4 mg Q4H PRN IV PAIN 1-10 06/09/16 18:00 06/11/16 19:58 Aspirin (Ecotrin Ec) 81 mg DAILY PO 06/11/16 09:00 06/13/16 08:11 Lidocaine HCl (Lidoderm 5% Patch.12 Hr) 1 patch Q24H TD 06/10/16 23:00 06/12/16 23:38 Miscellaneous Information 1 Q24H TD 06/10/16 23:00 06/12/16 23:00 Sertraline HCl (Zoloft) 50 mg DAILY PO 06/11/16 12:00 06/13/16 08:11 Atorvastatin Calcium (Lipitor) 20 mg HS PO 06/11/16 21:00 06/12/16 21:09 Acetaminophen (Tylenol) 650 mg Q4H PRN PO PAIN OR FEVER > 100.5 06/11/16 23:30 Senna/Docusate Sodium (Maribel-Colace) 2 tab DAILY PO 06/12/16 12:00 06/13/16 08:11 Polyethylene Glycol (Miralax) 17 gm DAILY PO 06/12/16 12:00 06/13/16 08:11 Guaifenesin (Mucinex Er) 600 mg BID PO 06/12/16 11:30 06/13/16 08:11 Assessment and Plan Assessment and Plan anemia pt has dropped hgb will need transfusion for strengh to participate in rehab [facility] in [facility] Discussed Condition With patient Discharge Planning [facility] aFbio Antony DO Jun 13, 2016 10:29
[2016-06-13] MEDS: MORPHINE SULFATE 4 MG/ML INJ IV PRN (17:19)
--- NOTE | 2016-06-13 21:59 | RADRPT ---
EXAM DATE/TIME: 06/13/2016 21:37 [facility] COMPARISON: CT THORAX W/O CONTRAST, June 12, 2016, 17:32. CHEST SINGLE AP, June 09, 2016, 17:32. INDICATIONS : Short of Breath MEDICAL HISTORY : Hypertension. Cardiovascular disease. SURGICAL HISTORY : Tonsillectomy. ENCOUNTER: Subsequent ACUITY: 4 - 6 days PAIN SCORE: 0/10 LOCATION: Bilateral chest FINDINGS: The heart size is upper limits of normal. There is vague density seen throughout the left chest. Th ere is some hazy density identified at the right base. There is fracturing of the posterior left 6th through 9th ribs. The patient does have evidence of vertebroplasty at the upper lumbar spine. CONCLUSION: 1. Hazy density seen throughout much of the left chest likely related to a moderate effusion. 2. The hazy density at the right base represents milder effusion with accompanying areas of consolid ation or atelectasis at the right lower lung. 3. Left-sided rib fractures. Fletcher Leroy MD on June 13, 2016 at 21:52 Board Certified Radiologist. This report was verified electronically.
[2016-06-13] MEDS: LIDOCAINE HCL 5% PATCH TD SCH (23:00)
[2016-06-13] MEDS: REMOVE OLD LIDOCAINE PATCH TD SCH (23:00)
[2016-06-13] MEDS: ATORVASTATIN 20 MG TAB PO SCH (23:27)
[2016-06-14] VITALS (9 sets, daily range): BP systolic 92–119; BP diastolic 54–60; PULSE 56–77; RESP 18–20; TEMP 96.3–99.3; O2SAT 92–100
[2016-06-14] MEDS: RESP: ALBUTEROL CONC 2.5 MG/0.5 ML NEB NEB SCH ×4 (04:36→20:54)
[2016-06-14] MEDS: MORPHINE SULFATE 4 MG/ML INJ IV PRN ×2 (04:52→10:49)
[2016-06-14 07:51] LABS: AUTOMATED NEUTROPHIL # 8.7 TH/MM3 (1.8-7.7); BASOPHIL % 0.5 % (0.0-2.0); EOSINOPHIL % 0.4 % (0.0-4.0); HEMATOCRIT 31.8 % (35.0-46.0); HEMO FLAGS DIFF FINAL; LYMPH % 4.6 % (9.0-44.0); LYMPHOCYTE # 0.4 TH/MM3 (1.0-4.8); MEAN CELL VOLUME 89.3 FL (80.0-100.0); MEAN CORPUSCULAR HEMOGLOBIN 30.8 PG (27.0-34.0); MEAN CORPUSCULAR HGB CONC 34.5 % (32.0-36.0); NEUT % 89.5 % (16.0-70.0); PLATELET COUNT 122 TH/MM3 (150-450); RED BLOOD COUNT 3.56 MIL/MM3 (4.00-5.30); RED CELL DISTRIBUTION WIDTH 14.2 % (11.6-17.2); WHITE BLOOD COUNT 9.7 TH/MM3 (4.0-11.0)
[2016-06-14] MEDS: guaiFENesin E.R. 600 MG TAB PO SCH ×2 (08:41→21:07)
[2016-06-14] MEDS: ASPIRIN EC 81 MG TABEC PO SCH (08:41)
[2016-06-14] MEDS: SERTRALINE HCL 50 MG TAB PO SCH (08:41)
[2016-06-14] MEDS: POLYETHYLENE GLYCOL 17 GM PKG PO SCH (08:43)
[2016-06-14] MEDS: DOCUSATE SODIUM 50 MG/SENNA 8.6 MG TAB PO SCH (08:43)
--- NOTE | 2016-06-14 09:48 | HHI.PR ---
Subjective Remarks feeling better post transfusion requesting arthritis meds Objective Vital Signs Date Time Temp Pulse Resp B/P Pulse Ox O2 Delivery O2 Flow Rate FiO2 06/14/16 09:11 93 Nasal Cannula 3.00 06/14/16 08:38 Nasal Cannula 3.00 06/14/16 08:22 99.3 77 20 102/59 97 06/14/16 05:02 19 06/14/16 04:39 93 Nasal Cannula 3.00 06/14/16 04:02 98.9 65 20 103/60 100 06/14/16 00:52 18 06/14/16 00:18 98.6 67 20 119/60 95 06/13/16 23:55 99.0 64 18 109/54 97 06/13/16 23:25 73 18 127/60 74 06/13/16 22:00 96 Nasal Cannula 2.00 06/13/16 20:40 98.7 71 18 104/51 94 06/13/16 20:29 98.6 68 18 129/59 94 06/13/16 20:18 98.0 68 16 119/57 91 06/13/16 20:06 98.0 68 16 119/57 91 06/13/16 20:00 98.4 74 18 105/58 97 06/13/16 19:46 95 Nasal Cannula 2.00 06/13/16 17:01 98.2 64 20 138/59 94 06/13/16 13:16 98.3 65 12 106/54 99 06/13/16 13:07 98.2 66 12 105/51 98 06/13/16 12:54 96 Nasal Cannula 2.00 06/13/16 12:53 98.2 65 16 102/54 95 06/13/16 12:40 98.2 68 12 103/54 96 06/13/16 12:17 97.6 64 18 95 06/13/16 11:10 95 Nasal Cannula 2.00 I/O 06/13/16 06/13/16 06/13/16 06/14/16 06/14/16 06/14/16 07:00 15:00 23:00 07:00 15:00 23:00 Intake Total 350 ml 510 ml Balance 350 ml 510 ml Intake Oral 350 ml 240 ml Packed Cells 270 ml # Voids 2 3 # Bowel Movements 0 Result Diagram: 1/22/17 0730 1/21/17 0740 Objective Remarks GENERAL: SKIN: Warm and dry. HEAD: Atraumatic. Normocephalic. EYES: Pupils equal and round. No scleral icterus. No injection or drainage. ENT: No nasal bleeding or discharge. Mucous membranes pink and moist. NECK: Trachea midline. No JVD. CARDIOVASCULAR: Regular rate and rhythm. RESPIRATORY: No accessory muscle use. Clear to auscultation. Breath sounds equal bilaterally. GASTROINTESTINAL: Abdomen soft, non-tender, nondistended. Hepatic and splenic margins not palpable. MUSCULOSKELETAL: Extremities without clubbing, cyanosis, or edema. No obvious deformities. joints painful NEUROLOGICAL: Awake and alert. No obvious cranial nerve deficits. generaliized weakness present Normal speech. PSYCHIATRIC: Appropriate mood and affect; insight and judgment normal. Medications and IVs Current Medications Medications (Trade) Dose Ordered Sig/Albert Route PRN Reason Start Time Stop Time Status Last Admin Dose Admin Ondansetron HCl (Zofran Inj) 4 mg Q6HR PRN IV PUSH nausea/ vomiting 06/09/16 15:30 Labetalol HCl (Trandate Inj) 10 mg Q2HR PRN IV PUSH SBP greater than 180mm Hg 06/09/16 15:30 Oxycodone/ Acetaminophen (Percocet 5-325 Mg) 1 tab Q4H PRN PO PAIN 1-10 06/09/16 17:15 06/13/16 23:21 Morphine Sulfate (Morphine Inj) 4 mg Q4H PRN IV PAIN 1-10 06/09/16 18:00 06/14/16 04:52 Aspirin (Ecotrin Ec) 81 mg DAILY PO 06/11/16 09:00 06/14/16 08:41 Lidocaine HCl (Lidoderm 5% Patch.12 Hr) 1 patch Q24H TD 06/10/16 23:00 06/13/16 23:00 Miscellaneous Information 1 Q24H TD 06/10/16 23:00 06/13/16 23:00 Sertraline HCl (Zoloft) 50 mg DAILY PO 06/11/16 12:00 06/14/16 08:41 Atorvastatin Calcium (Lipitor) 20 mg HS PO 06/11/16 21:00 06/13/16 23:27 Acetaminophen (Tylenol) 650 mg Q4H PRN PO PAIN OR FEVER > 100.5 06/11/16 23:30 Senna/Docusate Sodium (Maribel-Colace) 2 tab DAILY PO 06/12/16 12:00 06/14/16 08:43 Polyethylene Glycol (Miralax) 17 gm DAILY PO 06/12/16 12:00 06/14/16 08:43 Guaifenesin (Mucinex Er) 600 mg BID PO 06/12/16 11:30 06/14/16 08:41 Assessment and Plan Assessment and Plan hgb 11 pt feeling better no sob or rales has joint pain will add celebrex Discharge Planning to [facility] Fabio Antony DO Jun 14, 2016 09:48
[2016-06-14] MEDS: oxyCODONE/ACETAMINOPHEN 5 MG/325 MG TAB PO PRN ×2 (10:49→15:31)
[2016-06-14] MEDS: FAMOTIDINE 20 MG TAB PO SCH ×2 (15:40→21:08)
[2016-06-14] MEDS ORDERED: CELECOXIB 100 MG CAP PO SCH (21:00)
[2016-06-14] MEDS: ATORVASTATIN 20 MG TAB PO SCH (21:07)
[2016-06-14] MEDS: REMOVE OLD LIDOCAINE PATCH TD SCH (21:08)
[2016-06-14] MEDS: LIDOCAINE HCL 5% PATCH TD SCH (22:37)
[2016-06-15] VITALS (9 sets, daily range): BP systolic 87–129; BP diastolic 42–61; PULSE 53–68; RESP 14–20; TEMP 96.2–98.6; O2SAT 90–99
[2016-06-15] MEDS: MORPHINE SULFATE 4 MG/ML INJ IV PRN (02:34)
[2016-06-15] MEDS: RESP: ALBUTEROL CONC 2.5 MG/0.5 ML NEB NEB SCH ×4 (04:44→20:48)
[2016-06-15] MEDS: ETODOLAC 500 MG PO SCH (09:00)
[2016-06-15] MEDS: SERTRALINE HCL 50 MG TAB PO SCH (09:24)
[2016-06-15] MEDS: oxyCODONE/ACETAMINOPHEN 5 MG/325 MG TAB PO PRN ×2 (09:24→15:04)
[2016-06-15] MEDS: guaiFENesin E.R. 600 MG TAB PO SCH ×2 (09:24→21:22)
[2016-06-15] MEDS: ASPIRIN EC 81 MG TABEC PO SCH (09:25)
[2016-06-15] MEDS: DOCUSATE SODIUM 50 MG/SENNA 8.6 MG TAB PO SCH (09:25)
[2016-06-15] MEDS: FAMOTIDINE 20 MG TAB PO SCH ×2 (09:25→21:00)
[2016-06-15] MEDS: POLYETHYLENE GLYCOL 17 GM PKG PO SCH (09:25)
--- NOTE | 2016-06-15 14:22 | HHI.PR ---
Subjective Remarks Having some anxiety this morning d/t some back pain, otherwise no complaints. Objective Vital Signs Date Time Temp Pulse Resp B/P Pulse Ox O2 Delivery O2 Flow Rate FiO2 06/15/16 11:00 98.3 53 20 87/42 96 06/15/16 09:37 96 Nasal Cannula 3.00 06/15/16 07:00 97.5 68 20 113/56 99 06/15/16 05:02 98.2 56 17 105/52 94 06/15/16 02:39 18 06/14/16 23:58 97.2 57 18 105/54 97 06/14/16 22:03 96 Nasal Cannula 2.00 06/14/16 20:54 Nasal Cannula 3.00 06/14/16 20:00 96.3 56 18 111/60 96 06/14/16 15:39 96.8 63 20 92/58 94 I/O 06/14/16 06/14/16 06/14/16 06/15/16 06/15/16 06/15/16 07:00 15:00 23:00 07:00 15:00 23:00 # Voids 1 0 # Bowel Movements 0 Result Diagram: 06/14/16 0730 06/13/16 0740 Objective Remarks GENERAL: Thin, well-developed patient. SKIN: Warm and dry with scattered ecchymoses. HEAD: Normocephalic. EYES: No scleral icterus. No injection or drainage. NECK: Supple, trachea midline. No JVD or lymphadenopathy. CARDIOVASCULAR: Irregular rhythm, controlled rate without murmurs, gallops, or rubs. RESPIRATORY: Breath sounds equal, diminished L>R. No accessory muscle use. GASTROINTESTINAL: Abdomen soft, non-tender, nondistended. EXTREMITIES: No cyanosis, or edema. NEUROLOGICAL: Awake, alert, and oriented x 3. Non-focal. Medications and IVs Current Medications Medications (Trade) Dose Ordered Sig/Albert Route Start Time Stop Time Status Last Admin (Zofran Inj) 4 mg Q6HR PRN IV PUSH 06/09/16 15:30 (Trandate Inj) 10 mg Q2HR PRN IV PUSH 06/09/16 15:30 (Percocet 5-325 Mg) 1 tab Q4H PRN PO 06/09/16 17:15 06/15/16 09:24 (Morphine Inj) 4 mg Q4H PRN IV 06/09/16 18:00 06/15/16 02:34 (Ecotrin Ec) 81 mg DAILY PO 06/11/16 09:00 06/15/16 09:25 (Lidoderm 5% Patch.12 Hr) 1 patch Q24H TD 06/10/16 23:00 06/14/16 22:37 Miscellaneous Information 1 Q24H TD 06/10/16 23:00 06/14/16 21:08 (Zoloft) 50 mg DAILY PO 06/11/16 12:00 06/15/16 09:24 (Lipitor) 20 mg HS PO 06/11/16 21:00 06/14/16 21:07 (Tylenol) 650 mg Q4H PRN PO 06/11/16 23:30 (Maribel-Colace) 2 tab DAILY PO 06/12/16 12:00 06/15/16 09:25 (Miralax) 17 gm DAILY PO 06/12/16 12:00 06/15/16 09:25 (Mucinex Er) 600 mg BID PO 06/12/16 11:30 06/15/16 09:24 Patient Own Medication PT OWN MED: ETODO... DAILY PO 06/15/16 09:00 06/15/16 09:00 (Pepcid) 10 mg BID PO 06/14/16 16:00 06/15/16 09:25 Assessment and Plan Problem List: (1) Hyperlipidemia Status: Chronic Plan: HH diet, atorvastatin. (2) Hypertension Status: Chronic Plan: Stable on current medications. (3) Acute ischemic left MCA stroke Status: Acute Plan: Plan for rehab at [place] when stable. (4) Rib pain on left side Status: Acute Plan: Worse with inspiration and movement, present since event. Will check xray. (5) Constipation Status: Chronic Plan: On stool softener, Senna and Miralax. Will order suppository. Assessment and Plan D/W pt., RN, Dr. Antony. Problem Qualifiers (1) Hyperlipidemia: Qualified Code: E78.2 - Mixed hyperlipidemia (2) Hypertension: Qualified Code: I10 - Essential hypertension (3) Constipation: Qualified Code: K59.04 - Chronic idiopathic constipation Era Burgess Jun 15, 2016 14:22
[2016-06-15] MEDS ORDERED: BISACODYL 10 MG SUPP RECTAL ONE (14:30)
--- NOTE | 2016-06-15 17:17 | RADRPT ---
EXAM DATE/TIME: 06/15/2016 17:03 [facility] COMPARISON: No previous studies available for comparison. INDICATIONS : Left thoracentesis. MEDICAL HISTORY : Cardiovascular disease. Hypertension SURGICAL HISTORY : Tonsillectomy. ENCOUNTER: Initial ACUITY: 2 days PAIN SCORE: 8/10 LOCATION: Left upper chest FINDINGS: The patient is status post thoracentesis on the right. There is no evidence of pneumothorax. Prominent right hilum is noted with minimal parenchymal changes to the right base. The left lung is c lear. Heart and pulmonary vascularity are normal. CONCLUSION: There is no pneumothorax. Jose Enrique Paredes MD FACR on June 15, 2016 at 17:13 Board Certified Radiologist. This report was verified electronically.
--- NOTE | 2016-06-15 17:30 | RADRPT ---
EXAM DATE/TIME: 06/15/2016 15:35 [facility] COMPARISON: No previous studies available for comparison. INDICATIONS : Left pleural effusion. MEDICAL HISTORY : Chronic kidney disease. Hypertension. SURGICAL HISTORY : Knee surgery. ENCOUNTER: Initial ACUITY: 1 day PAIN SCORE: 5/10 LOCATION: Right chest FLUID: Total volume of 600 of cloudy, red fluid was removed. Fluid was sent to lab for ordered studies. TECHNIQUE: 1. Ultrasound guidance for thoracentesis. 2. Thoracentesis. The risks, benefits, and alternatives to ultrasound guided thoracentesis were explained to the patien t in lay simple terms, including the risk of bleeding and infection. Written and verbal informed con sent was obtained. Appropriate area for thoracentesis was marked under ultrasound guidance with the patient in the uprig ht position. Overlying skin was prepped and draped in the usual sterile fashion and with local anest hetic, a dermatotomy was made with an 11 blade scalpel. A 6 Estonian thoracentesis catheter was placed in the pleural space and fluid was removed. Catheter was then removed and a sterile dressing applie d. There were no immediate complications. The patient tolerated the procedure well and the left the ultrasound suite in stable condition. Chest radiograph is to be obtained. CONCLUSION: Uncomplicated ultrasound guided thoracentesis. Jose Enrique Paredes MD FACR on June 15, 2016 at 17:28 Board Certified Radiologist. This report was verified electronically.
--- NOTE | 2016-06-15 17:52 | RADRPT ---
EXAM DATE/TIME: 06/15/2016 17:36 [facility] COMPARISON: CHEST SINGLE AP, June 13, 2016, 21:37. CT THORAX W/O CONTRAST, June 12, 2016, 17:32. INDICATIONS : Left side rib pain, fell MEDICAL HISTORY : Hypertension. Cardiovascular disease. SURGICAL HISTORY : Tonsillectomy. ENCOUNTER: Subsequent ACUITY: 1 week PAIN SCORE: 6/10 LOCATION: Left Ribs FINDINGS: Fracture of left rib #7 is appreciated slightly angulated and quite sleepy contiguous with 6 and poss ible eighth rib fractures. No pneumothorax. CONCLUSION: Left rib fractures as described. No pneumothorax Shubham Preciado MD on June 15, 2016 at 17:46 Board Certified Radiologist. This report was verified electronically.
[2016-06-15 18:34] LABS: TOTAL PROTEIN,PLEURAL FLUID 2.5 GM/DL
[2016-06-15 18:47] LABS: PLEURAL FLUID LYMPHS 66 %
[2016-06-15] MEDS: REMOVE OLD LIDOCAINE PATCH TD SCH (21:08)
[2016-06-15] MEDS: LIDOCAINE HCL 5% PATCH TD SCH (21:15)
[2016-06-15] MEDS: ATORVASTATIN 20 MG TAB PO SCH (21:22)
[2016-06-16] VITALS: BP 111/51; PULSE 57; RESP 14; TEMP 97.7; O2SAT 96
[2016-06-16] MEDS: RESP: ALBUTEROL CONC 2.5 MG/0.5 ML NEB NEB SCH ×2 (03:25→08:16)
[2016-06-16 04:00] VITALS: BP_SYST 128; BP_DIAS 46; BP_DIAS 70; PULSE 74; RESP 16; TEMP 97.4; O2SAT 96
[2016-06-16] MEDS: oxyCODONE/ACETAMINOPHEN 5 MG/325 MG TAB PO PRN ×2 (04:01→10:00)
[2016-06-16 07:25] VITALS: BP 112/45; PULSE 52; RESP 20; TEMP 97; O2SAT 97
[2016-06-16 08:16] VITALS: O2SAT 97
[2016-06-16] MEDS: ETODOLAC 500 MG PO SCH (09:48)
[2016-06-16] MEDS: guaiFENesin E.R. 600 MG TAB PO SCH (09:49)
[2016-06-16] MEDS: SERTRALINE HCL 50 MG TAB PO SCH (09:49)
[2016-06-16] MEDS: DOCUSATE SODIUM 50 MG/SENNA 8.6 MG TAB PO SCH (09:49)
[2016-06-16] MEDS: POLYETHYLENE GLYCOL 17 GM PKG PO SCH (09:49)
[2016-06-16] MEDS: FAMOTIDINE 20 MG TAB PO SCH (09:49)
[2016-06-16] MEDS: ASPIRIN EC 81 MG TABEC PO SCH (09:49)
--- NOTE | 2016-06-16 10:27 | HHI.PR ---
Subjective Remarks C/O left rib pain. Objective Vital Signs Date Time Temp Pulse Resp B/P Pulse Ox O2 Delivery O2 Flow Rate FiO2 06/16/16 08:16 97 Nasal Cannula 2.00 06/16/16 07:25 97.0 52 20 112/45 97 06/16/16 04:00 97.4 74 16 128/46 96 06/16/16 04:00 97.4 74 16 128/70 96 06/16/16 00:00 97.7 57 14 111/51 96 06/15/16 20:49 95 Nasal Cannula 2.00 06/15/16 20:30 93 Nasal Cannula 2.00 06/15/16 20:00 97.8 56 14 114/54 93 06/15/16 20:00 97.8 56 14 114/54 93 06/15/16 17:29 98.6 59 18 129/58 90 128/61 06/15/16 16:06 98.4 57 20 103/59 92 06/15/16 15:15 96.2 54 20 121/56 93 06/15/16 11:00 98.3 53 20 87/42 96 I/O 06/15/16 06/15/16 06/15/16 06/16/16 06/16/16 06/16/16 07:00 15:00 23:00 07:00 15:00 23:00 # Voids 0 2 # Bowel Movements 0 Result Diagram: 06/14/16 0730 06/13/16 0740 Imaging Last 48 hours Impressions Thoracentesis Ultrasound 06/15/16 0000 Signed Impressions: Service Date/Time: Wednesday, June 15, 2016 15:35 - CONCLUSION: Uncomplicated ultrasound guided thoracentesis. Jose Enrique Paredes MD FACR Ribs X-Ray 06/15/16 0000 Signed Impressions: Service Date/Time: Wednesday, June 15, 2016 17:36 - CONCLUSION: Left rib fractures as described. No pneumothorax Shubham Preciado MD Chest X-Ray 06/15/16 0000 Signed Impressions: Service Date/Time: Wednesday, June 15, 2016 17:03 - CONCLUSION: There is no pneumothorax. Jose Enrique Paredes MD FACR Objective Remarks GENERAL: Thin, well-developed patient. SKIN: Warm and dry with scattered ecchymoses. HEAD: Normocephalic. EYES: No scleral icterus. No injection or drainage. NECK: Supple, trachea midline. No JVD or lymphadenopathy. CARDIOVASCULAR: Irregular rhythm, controlled rate without murmurs, gallops, or rubs. RESPIRATORY: Breath sounds equal, diminished L>R, faint L crackles. No accessory muscle use. GASTROINTESTINAL: Abdomen soft, non-tender, nondistended. EXTREMITIES: No cyanosis, or edema. NEUROLOGICAL: Awake, alert, and oriented x 3. Non-focal. Medications and IVs Current Medications Medications (Trade) Dose Ordered Sig/Albert Route Start Time Stop Time Status Last Admin (Zofran Inj) 4 mg Q6HR PRN IV PUSH 06/09/16 15:30 (Trandate Inj) 10 mg Q2HR PRN IV PUSH 06/09/16 15:30 (Percocet 5-325 Mg) 1 tab Q4H PRN PO 06/09/16 17:15 06/16/16 10:00 (Morphine Inj) 4 mg Q4H PRN IV 06/09/16 18:00 06/15/16 02:34 (Ecotrin Ec) 81 mg DAILY PO 06/11/16 09:00 06/16/16 09:49 (Lidoderm 5% Patch.12 Hr) 1 patch Q24H TD 06/10/16 23:00 06/15/16 21:15 Miscellaneous Information 1 Q24H TD 06/10/16 23:00 06/15/16 21:08 (Zoloft) 50 mg DAILY PO 06/11/16 12:00 06/16/16 09:49 (Lipitor) 20 mg HS PO 06/11/16 21:00 06/15/16 21:22 (Tylenol) 650 mg Q4H PRN PO 06/11/16 23:30 (Maribel-Colace) 2 tab DAILY PO 06/12/16 12:00 06/16/16 09:49 (Miralax) 17 gm DAILY PO 06/12/16 12:00 06/16/16 09:49 (Mucinex Er) 600 mg BID PO 06/12/16 11:30 06/16/16 09:49 Patient Own Medication PT OWN MED: ETODO... DAILY PO 06/15/16 09:00 06/16/16 09:48 (Pepcid) 10 mg BID PO 06/14/16 16:00 06/16/16 09:49 Assessment and Plan Problem List: (1) Hyperlipidemia Status: Chronic Plan: HH diet, atorvastatin. (2) Hypertension Status: Chronic Plan: Stable on current medications. (3) Acute ischemic left MCA stroke Status: Acute Plan: Plan for rehab at [facility] when stable. (4) Rib pain on left side Status: Acute Plan: Xray shows fractures likely ribs 6,7,8. Lidoderm patch added. (5) Constipation Status: Chronic Plan: On stool softener, Senna and Miralax, had suppository yesterday with small BM. [facility] holding acceptance pending KUB to RO ileus. Ordered. Assessment and Plan D/W pt., RN, Dr. Antony. Problem Qualifiers (1) Hyperlipidemia: Qualified Code: E78.2 - Mixed hyperlipidemia (2) Hypertension: Qualified Code: I10 - Essential hypertension (3) Constipation: Qualified Code: K59.04 - Chronic idiopathic constipation Era Burgess Jun 16, 2016 10:26
--- NOTE | 2016-06-16 11:27 | RADRPT ---
EXAM DATE/TIME: 06/16/2016 11:08 [facility] COMPARISON: CHEST SINGLE AP, June 13, 2016, 21:37. INDICATIONS : Abdominal distention, pain LUQ MEDICAL HISTORY : Stroke. SURGICAL HISTORY : kyphoplasty ENCOUNTER: Subsequent ACUITY: 1 week PAIN SCORE: 6/10 LOCATION: Bilateral abdomen FINDINGS: Supine frontal view of the abdomen demonstrates air within bowel in a nonobstructive pattern. No orga nomegaly is visualized. No concerning calcifications or abnormal mass effect is seen. There is slight blunting of the left costophrenic sulcus. There is mild levoscoliosis of the lumbar spine and there has been prior vertebroplasty at L2. There are also degenerative changes throughout the spine and hip joints. CONCLUSION: 1. No acute abdominal abnormality is identified. 2. Trace left pleural effusion. Findings were telephoned to the nurse taking care of this patient at 11:24 AM. Fletcher Brantley MD on June 16, 2016 at 11:21 Board Certified Radiologist. This report was verified electronically.
[2016-06-16 11:40] VITALS: BP 162/72; PULSE 54; RESP 20; TEMP 97.5; O2SAT 96
[2016-06-16] MEDS ORDERED: LIDOCAINE HCL 5% PATCH TD SCH (12:00)
[2016-06-16] MEDS ORDERED: LIPI20TA PO (12:10)
[2016-06-16] MEDS ORDERED: ALBUTEROL NEB (12:10)
[2016-06-16] MEDS ORDERED: ACET325T PO (12:10)
[2016-06-16] MEDS ORDERED: POLY17S PO (12:10)
[2016-06-16] MEDS ORDERED: SENN1TAB PO (12:10)
[2016-06-16] MEDS ORDERED: Remove Old Patch T-DERMAL (12:10)
[2016-06-16] MEDS ORDERED: ASPI81TA11 PO (12:10)
[2016-06-16] MEDS ORDERED: LIDO5DIS35 TD (12:10)
[2016-06-16] MEDS ORDERED: ZOLO50TA PO (12:10)
[2016-06-16] MEDS ORDERED: FAMO20TA2 PO (12:10)
[2016-06-16] MEDS ORDERED: MUCI600T PO (12:10)
--- NOTE | 2016-06-16 12:22 | HHI.DS ---
Discharge Summary Admission Date Jun 09, 2016 at 13:30 Admitting Diagnosis right MCA stroke (1) Rib pain on left side Diagnosis: Secondary (2) Acute ischemic right MCA stroke Diagnosis: Principal Procedures Thrombectomy Brief History Admitted after episode of weakness with assisted fall secondary to right MCA CVA. CBC/BMP: 06/14/16 0730 06/13/16 0740 Significant Findings Laboratory Tests Test 06/14/16 06/15/16 07:30 16:15 Red Blood Count 3.56 MIL/MM3 (4.00-5.30) Hemoglobin 11.0 GM/DL (11.6-15.3) Hematocrit 31.8 % (35.0-46.0) Platelet Count 122 TH/MM3 (150-450) Neutrophils (%) (Auto) 89.5 % (16.0-70.0) Lymphocytes (%) (Auto) 4.6 % (9.0-44.0) Neutrophils # (Auto) 8.7 TH/MM3 (1.8-7.7) Lymphocytes # (Auto) 0.4 TH/MM3 (1.0-4.8) Pleural Fluid WBC 241 /MM3 (0-10) Pleural Fluid RBC [id number] /MM3 (0-0) Imaging Last 48 hours Impressions Abdomen X-Ray 06/16/16 0000 Signed Impressions: Service Date/Time: Thursday, June 16, 2016 11:08 - CONCLUSION: 1. No acute abdominal abnormality is identified. 2. Trace left pleural effusion. Findings were telephoned to the nurse taking care of this patient at 11:24 AM. Fletcher Brantley MD Thoracentesis Ultrasound 06/15/16 0000 Signed Impressions: Service Date/Time: Wednesday, June 15, 2016 15:35 - CONCLUSION: Uncomplicated ultrasound guided thoracentesis. Jose Enrique Paredes MD FACR Ribs X-Ray 06/15/16 0000 Signed Impressions: Service Date/Time: Wednesday, June 15, 2016 17:36 - CONCLUSION: Left rib fractures as described. No pneumothorax Shubham Preciado MD Chest X-Ray 06/15/16 0000 Signed Impressions: Service Date/Time: Wednesday, June 15, 2016 17:03 - CONCLUSION: There is no pneumothorax. Jose Enrique Paredes MD FACR PE at Discharge GENERAL: Thin, well-developed patient. SKIN: Warm and dry with scattered ecchymoses. HEAD: Normocephalic. EYES: No scleral icterus. No injection or drainage. NECK: Supple, trachea midline. No JVD or lymphadenopathy. CARDIOVASCULAR: Irregular rhythm, controlled rate without murmurs, gallops, or rubs. RESPIRATORY: Breath sounds equal, diminished L>R, faint L crackles. No accessory muscle use. GASTROINTESTINAL: Abdomen soft, non-tender, nondistended. EXTREMITIES: No cyanosis, or edema. NEUROLOGICAL: Awake, alert, and oriented x 3. Non-focal. Transfer Summary Admitted after episode of weakness with assisted fall secondary to right MCA CVA. She was treated with thrombectomy, HOB flat and underwent PT/OT/ST with improvement. Rib xray showed likely fractured ribs 6. 7, 8. Pt. has chronic constipation and KUB was done to rule out ileus. On 06/16 she was deemed stable for discharge to [facility] for continued therapy in stable, improved condition. Pt Condition on Discharge: Stable Discharge Disposition: Rehab Inpatient Discharge Instructions DIET: Follow Instructions for: As Tolerated, No Restrictions Speech Therapy-Diet Recommenda: Regular Activities you can perform: Regular-No Restrictions New Medications: Acetaminophen (Acetaminophen) 325 Mg Tab 650 MG PO Q4H PRN PAIN OR FEVER > 100.5 #[address] (Aspirin EC) 81 Mg Tabdr 81 MG PO DAILY Blood Clot Prevention #30 TAB Atorvastatin (Lipitor) 20 Mg Tab 20 MG PO HS Cholesterol Management #30 TAB Famotidine (Famotidine) 20 Mg Tab 10 MG PO BID Heartburn Management #60 TAB Guaifenesin ER 12 HR (Mucinex ER 12 HR) 600 Mg Gena 600 MG PO BID Cough #20 TAB Lidocaine Patch 12 HR (Lidoderm Patch 12 HR) 5% Patch 1 PATCH TD DAILY Pain Management #30 FILM Polyethylene Glycol 3350 Powder (Polyethylene Glycol 3350 Powder) 17 Gm Pow 17 GM PO DAILY Constipation Days 30 PKT Sennosides-Docusate Sodium (Senna Plus 8.6-50 mg) 1 Tab Tab 2 TAB PO DAILY Constipation Days 30 TAB Sertraline (Zoloft) 50 Mg Tab 50 MG PO DAILY Depression Control Days 30 TAB ([Albuterol Concentrated Neb]) 2.5 MG/0.5 ML NEBU 2.5 MG NEB Q6HR NEB AMPULE ([Remove Old Patch]) MISC 1 T-DERMAL HS EA Discontinued Medications: Clonazepam (Klonopin) 0.5 Mg Tab 0.5 MG PO HS #60 Ref 0 TAB Era Burgess Jun 16, 2016 12:22
[2016-06-16] MEDS ORDERED: REMOVE OLD PATCH T-DERMAL SCH (21:00)
[2016-06-30] MEDS ORDERED: LIPI20TA PO (08:29)
[2016-06-30] MEDS ORDERED: ACET325T PO (08:29)
[2016-06-30] MEDS ORDERED: KONS100P3 PO (08:29)
[2016-06-30] MEDS ORDERED: FAMO20TA2 PO (08:29)
[2016-06-30] MEDS ORDERED: MUCI600T PO (08:29)
[2016-06-30] MEDS ORDERED: LIDO5DIS35 TD (08:29)
[2016-06-30] MEDS ORDERED: ASPI81TA11 PO (08:29)
[2016-06-30] MEDS ORDERED: ZOLO50TA PO (08:29)
[2016-06-30] MEDS ORDERED: FURO20TA PO (08:29)
[2016-06-30] MEDS ORDERED: SENN1TAB PO (08:29)
[2016-06-30] MEDS ORDERED: POLY17S PO (08:29)
[2016-06-30] MEDS ORDERED: HYDR-3516 PO (08:29)
[2016-06-30] MEDS ORDERED: POTA10CA PO (08:32)
[2016-06-30] MEDS ORDERED: THERTAB15 PO (08:32)
== END 2016-06-16 13:49 | DRG 24 ==
LOC: NEPE 12:58 → NEDA 13:30 → N03B 15:37 → N05B 06-11 14:28
PROVIDERS: ADMIT Family Medicine; ATTEND Family Medicine
PROC: 03CG3ZZ Extirpation of Matter from Intracranial Artery, Percutaneous Approach (ICD-10-PCS; principal; 2016-06-09)
PROC: 3E03317 Introduction of Other Thrombolytic into Peripheral Vein, Percutaneous Approach (ICD-10-PCS; 2016-06-09)
PROC: B3131ZZ Fluoroscopy of Right Common Carotid Artery using Low Osmolar Contrast (ICD-10-PCS; 2016-06-09)
PROC: B3161ZZ Fluoroscopy of Right Internal Carotid Artery using Low Osmolar Contrast (ICD-10-PCS; 2016-06-09)
PROC: 30233N1 Transfusion of Nonautologous Red Blood Cells into Peripheral Vein, Percutaneous Approach (ICD-10-PCS; 2016-06-13)
PROC: 0W9B3ZX Drainage of Left Pleural Cavity, Percutaneous Approach, Diagnostic (ICD-10-PCS; 2016-06-15)
DX: I63.411 Cerebral infarction due to embolism of right middle cerebral artery (principal); J90 Pleural effusion, not elsewhere classified; G81.94 Hemiplegia, unspecified affecting left nondominant side; S22.42XA Multiple fractures of ribs, left side, initial encounter for closed fracture; I12.9 Hypertensive chronic kidney disease with stage 1 through stage 4 chronic kidney disease, or unspecified chronic kidney disease; D64.9 Anemia, unspecified; F32.9 Major depressive disorder, single episode, unspecified; J44.9 Chronic obstructive pulmonary disease, unspecified; R29.719 NIHSS score 19; N18.9 Chronic kidney disease, unspecified; R11.2 Nausea with vomiting, unspecified; E78.2 Mixed hyperlipidemia; K59.04 Chronic idiopathic constipation; R29.810 Facial weakness; R47.1 Dysarthria and anarthria; M19.90 Unspecified osteoarthritis, unspecified site; Z87.891 Personal history of nicotine dependence; W18.30XA Fall on same level, unspecified, initial encounter; Y93.01 Activity, walking, marching and hiking
CPT/HCPCS: 32555; 36217; 36222; 36224; 36228; 36430; 61645; 70450; 70496; 70498; 71010; 71020; 71101; 71250; 74000; 76604; 76937; 80048; 80053; 80061; 82150; 82435; 82550; 82565; 82945; 82947; 83036; 83615; 84132; 84157; 84295; 84484; 84520; 85025; 85027; 85347; 85384; 85610; 85730; 86850; 86900; 86901; 86920; 87015; 87070; 87102; 87116; 87205; 87206; 89051; 93005; 94003; 94150; 94640; 99152; 99153; C1729; C1757; C1760; C1769; C1884; C1887; C1894; G0269; J1644; J2250; J2270; J2405; J2997; J3010; J7030; J7611; P9016; Q9967

== ENCOUNTER → 2016-07-15 | Day surgery (SDC) | payer MEDICARE, OTHER ==
[~2016-07-15] MED LIST changes: +ACET325T PO; +ALBUTEROL NEB; +APIX2.5T PO; -ARTHRITIS MED; +ASPI81TA11 PO; +BUPIVACAINE/EPINEPHRINE 0.25% 50 ML VIAL ONE; -CLON.5 PO; +FAMO20TA2 PO; +FURO20TA PO; -HTN MED; +HYDR-3516 PO; -HYDR-3533 PO; +KONS100P3 PO; +LACTATED RINGER'S 1000 ML INJ 1,000 ML ONE; +LIDO5DIS35 TD; +LIDOCAINE 1%/EPINEPHrine 1:100,000 SOLN 30 ML VIAL ONE; +LIPI20TA PO; +MUCI600T PO; +ONDANSETRON HCL 4 MG/2 ML VIAL IV PUSH ONE; +POLY17S PO; +POTA10CA PO; +PROPOFOL 200 MG/20 ML AMP IV ONE; +SENN1TAB PO; -SERT50 PO; +SODIUM CHLOR 0.9% 250 ML INJ 250 ML IV ONE; +THERTAB15 PO; +VANCOMYCIN HCL 1000 MG VIAL ONE; +ZOLO50TA PO; +ceFAZolin INJ 1,000 MG VIAL ONE
--- NOTE | 2016-07-30 12:59 | MP ---
cc: SOSA ROBBINS M.D. DATE OF SURGERY 07/15/2016 PROCEDURE Excision 4 x 6 cm left upper back mass. PREOPERATIVE DIAGNOSIS Soft tissue mass left upper back. POSTOPERATIVE DIAGNOSIS Bursa left upper back extending off of the scapula. ANESTHESIA LMA SURGEON Sosa Robbins MD ESTIMATED BLOOD LOSS 30 mL FLUIDS 600 mL Crystalloid COMPLICATIONS None DRAINS None SPECIMEN Bursa with soft tissue to pathology. PROCEDURE IN DETAIL The patient was seen in the holding area and the left upper back marked by the undersigned and confirmed by the patient. She was taken to the operating room and underwent laryngeal mask anesthesia. She had been placed on a xavier bag and was placed with the right side down. The left side of the back was then sterilely prepped and draped. Time-out was taken confirming the correct patient site and procedure to be performed. The patient had an incision made in an oblique fashion over the mass. Dissection was carried down to the mass which appeared to be composed of some soft tissue. The mass was entered at one point and a fair amount of slightly brownish, but clear fluid was quickly aspirated. There was no odor and it did not appear to be infected. This then allowed for further definition of the cavity and tissue. This was dissected around and was seen to be attached to the inferior edge of the scapula. This was completely dissected off and the inferior edge of the scapula was cauterized. This appeared to be a large bursa. After completely excising this, all bleeding was meticulously controlled with electrocautery. The wound was closed in two layers with 2-0 Vicryl suture and 5-0 PDS in a running subcuticular fashion. The wound was dressed with Steri-Strips. The patient was extubated and taken back to the recovery room in stable condition. She tolerated the procedure well. MD DELORES Napier/DJL /12:35 PM /12:55 PM
== END | disposition home or self-care (01) ==
LOC: ESDC 06:49
PROVIDERS: ATTEND Surgery Trauma Surgery
DX: R22.2 Localized swelling, mass and lump, trunk (principal)
CPT/HCPCS: 00300; 11406; 88304; 93005; J0690; J2405; J3010; J3370; J7050; J7120; 88305

== ENCOUNTER 2016-08-12 11:51 | Day surgery (SDC) | payer MEDICARE, OTHER ==
[~2016-08-12 11:51] MED LIST changes: -APIX2.5T PO; -BUPIVACAINE/EPINEPHRINE 0.25% 50 ML VIAL ONE; -LACTATED RINGER'S 1000 ML INJ 1,000 ML ONE; -LIDOCAINE 1%/EPINEPHrine 1:100,000 SOLN 30 ML VIAL ONE; -ONDANSETRON HCL 4 MG/2 ML VIAL IV PUSH ONE; -PROPOFOL 200 MG/20 ML AMP IV ONE; -SODIUM CHLOR 0.9% 250 ML INJ 250 ML IV ONE; -VANCOMYCIN HCL 1000 MG VIAL ONE; -ceFAZolin INJ 1,000 MG VIAL ONE
[2016-08-12] MEDS ORDERED: POVIDONE IODINE 5% (ANTISEPSIS KIT) 4 APPLICATIONS EACH NARE SCH (12:15)
[2016-08-12] MEDS ORDERED: VANCOMYCIN 1000 MG/NS 250 ML IV SCH ×2 (12:15)
[2016-08-12] MEDS ORDERED: NS 1000 ML IV SCH (12:15)
[2016-08-12] MEDS ORDERED: CHLORHEXIDINE GLUCONATE 2 % 1 PACK (2 CLOTHS) TOP SCH (12:15)
[2016-08-12] MEDS ORDERED: ceFAZolin 2 GM PREMIX 50 ML IV SCH (12:15)
[2016-08-12] MEDS ORDERED: MIDAZOLAM HCL 2 MG/2 ML VIAL ONE (13:35)
--- NOTE | 2016-08-14 11:22 | MR ---
cc: MAHAD MONROY DATE 08/12/2016 INDICATIONS CVA/TIA, evaluation for atrial fibrillation PROCEDURE PERFORMED 1. Placement of Medtronic Reveal LINQ MRI compatible loop monitor. 2. Moderate sedation. ACCESS SITE Left subclavicular area PROCEDURE After the patient was prepped and draped in the usual sterile manner, moderate sedation was initiated and local anesthesia was applied. A Medtronic Reveal LINQ monitor was placed to the left subclavicular area without difficulty. The patient remained stable throughout this procedure. MEDICATIONS Versed, IV Fentanyl BLOOD LOSS Less than 10 cc COMPLICATIONS None EQUIPMENT USED Medtronic Reveal LINQ [id number] MRI compatible loop monitor. DIAGNOSIS Successful placement of Medtronic Reveal LINQ MRI compatible loop monitor. DISPOSITION Ms. Andino will be monitored on Telemetry after the procedure. She will be discharged home later today. I will see her back for follow up in our office after discharge. We will initiate long-term monitoring of the device. MD RUPALI Vela/KADI /2:35 PM /11:16 AM KAVEH
== END 2016-08-12 15:38 | disposition home or self-care (01) ==
LOC: HDOC 11:51 → HDIC 11:54 → HDOC 15:38
PROVIDERS: ATTEND Internal Medicine Interventional Cardiology
DX: I48.91 Unspecified atrial fibrillation (principal)
CPT/HCPCS: 33282; C1764; J0690; J2250; J3010; J7030

== ENCOUNTER 2016-11-20 13:39 | Inpatient (IN) | payer MEDICARE, OTHER ==
[2016-11-20] VITALS (11 sets, daily range): BP systolic 91–140; BP diastolic 58–85; PULSE 63–145; RESP 16–18; TEMP 97.9–98.3; O2SAT 92–98
[~2016-11-20] VITALS: Ht 152.4 cm; Wt 52.5 kg
--- NOTE | 2016-11-20 13:49 | PD ---
Physical Exam Time Seen by Provider: 13:47 Narrative 86 y/o female sent by Dr. Tobar for evaluation of generalized weakness, nausea and vomiting. Hx. of atrial fibrillation, tachycardic. Vital signs reviewed. Seen at triage desk. Awaiting bed placement. Data Data Last Documented VS Vital Signs Date Time Temp Pulse Resp B/P Pulse Ox O2 Delivery O2 Flow Rate FiO2 11/20/16 13:41 98.2 145 16 138/64 95 Orders Electrocardiogram (11/20/16 13:46) Complete Blood Count With Diff (11/20/16 13:46) Basic Metabolic Panel (Bmp) (11/20/16 13:46) Ckmb (Isoenzyme) Profile (11/20/16 13:46) Troponin I (11/20/16 13:46) Chest, Single Ap (11/20/16 13:46) Iv Access Insert/Monitor (11/20/16 13:46) Ecg Monitoring (11/20/16 13:46) Oxygen Administration (11/20/16 13:46) Oximetry (11/20/16 13:46) Prothrombin Time / Inr (Pt) (11/20/16 13:46) [facility] Medical Record Reviewed: Yes Supervised Visit with MARIE: No Liu Trent Nov 20, 2016 13:49
[2016-11-20 14:20] LABS: AUTOMATED NEUTROPHIL # 2.9 TH/MM3 (1.8-7.7); BASOPHIL % 0.5 % (0.0-2.0); EOSINOPHIL % 0.3 % (0.0-4.0); HEMATOCRIT 41.4 % (35.0-46.0); HEMO FLAGS DIFF FINAL; LYMPH % 22.9 % (9.0-44.0); MEAN CELL VOLUME 91.3 FL (80.0-100.0); MEAN CORPUSCULAR HEMOGLOBIN 30.7 PG (27.0-34.0); MEAN CORPUSCULAR HGB CONC 33.6 % (32.0-36.0); MONO % 8.1 % (0.0-8.0); NEUT % 68.2 % (16.0-70.0); PLATELET COUNT 181 TH/MM3 (150-450); RED BLOOD COUNT 4.54 MIL/MM3 (4.00-5.30); RED CELL DISTRIBUTION WIDTH 13.7 % (11.6-17.2); WHITE BLOOD COUNT 4.3 TH/MM3 (4.0-11.0)
[2016-11-20 14:27] LABS: PROTHROMBIN TIME - PATIENT 11.1 SEC (9.8-11.6)
[2016-11-20 14:35] LABS: ANION GAP 9 MEQ/L (5-15); BLOOD UREA NITROGEN 31 MG/DL (7-18); CHLORIDE 103 MEQ/L (98-107); GLOMERULAR FILTRATION RATE 32 ML/MIN (>89); POTASSIUM 4.1 MEQ/L (3.5-5.1); SODIUM (NA) 139 MEQ/L (136-145)
[2016-11-20 14:38] LABS: CREATINE KINASE 156 U/L (26-192)
[2016-11-20 14:52] LABS: CKMB 2.6 NG/ML (0.5-3.6)
--- NOTE | 2016-11-20 14:54 | RADRPT ---
EXAM DATE/TIME: 11/20/2016 14:24 [place] COMPARISON: CHEST SINGLE AP, June 29, 2016, 18:29. INDICATIONS : Chest pain. MEDICAL HISTORY : Hypertension. CVA SURGICAL HISTORY : Loop recorder ENCOUNTER: Initial ACUITY: 1 day PAIN SCORE: 4/10 LOCATION: Left upper chest FINDINGS: A loop recorder is noted overlying the left heart border. There is no pulmonary vascular congestion or focal infiltrate. The heart is normal in size. Degenerative changes and scoliosis of the thoraco lumbar spine are noted. Compression deformities are also noted involving the lumbar spinae and are s table. CONCLUSION: 1. No pulmonary vascular congestion or pneumonia. 2. Degenerative changes, scoliosis and multiple chronic compression deformities are again noted and stable. Clinton Costa MD on November 20, 2016 at 14:45 Board Certified Radiologist. This report was verified electronically.
--- NOTE | 2016-11-20 15:21 | PD ---
HPI Chief Complaint: Cardiac Complaint Time Seen by Provider: 15:02 Travel History International Travel<30 days: No Contact w/Intl Traveler<30days: No Traveled to known affect area: No History of Present Illness HPI The patient woke up to urinate this morning. In the bathroom she felt weak in the legs. That was at about 6:50 AM. She went back to bed until 8AM and when she woke up she had cold sweats and felt weak. She went back to bed. She thought she may have had an A. fib without. She took her morning meds and then about 30 minutes later after feeling some nausea vomiting. She vomited only once. Since then she has felt generally weak. In the ER she states her symptoms have more or less resolved. The patient has a H3 [employer] defibrillator device. She called Dr. Tobar who advised her to come to the ER. PFS Past Medical History Arthritis: Yes Asthma: No Autoimmune Disease: No Blood Disorders: No Anxiety: No Depression: Yes Heart Rhythm Problems: No Cancer: No Cardiovascular Problems: Yes High Cholesterol: No Chemotherapy: No Chest Pain: No Congestive Heart Failure: No COPD: No Cerebrovascular Accident: Yes (RECENT LEFT MCA) Diabetes: No Diminished Hearing: No Endocrine: No Gastrointestinal Disorders: Yes GERD: No Glaucoma: No Genitourinary: Yes (CKD) Headaches: No Hepatitis: No Hiatal Hernia: No Heparin Induced Thrombocytopen: No Hypertension: Yes Immune Disorder: No Kidney Stones: No Musculoskeletal: Yes Neurologic: Yes Psychiatric: Yes Reproductive: No Respiratory: Yes Migraines: No Myocardial Infarction: No Radiation Therapy: No Renal Failure: No Seizures: No Sickle Cell Disease: No Sleep Apnea: No Thyroid Disease: No Ulcer: No Menopausal: Yes Past Surgical History Abdominal Surgery: No AICD: No Arteriovenous Shunt: No Cardiac Surgery: No Ear Surgery: No Endocrine Surgery: No Eye Surgery: No Genitourinary Surgery: No Gynecologic Surgery: No Insulin Pump: No Joint Replacement: No Neurologic Surgery: No Oral Surgery: No Pacemaker: No Thoracic Surgery: No Tonsillectomy: Yes Other Surgery: Yes (RIGHT ARM SURGERY FOR POSSIBLE SKIN CA) Social History Alcohol Use: Yes (OCC) Tobacco Use: Yes (4 CIGS PER DAY) Substance Use: No Allergies-Medications (Allergen,Severity, Reaction): Coded Allergies: No Known Allergies (Verified , 06/09/16) Reported Meds & Prescriptions Reported Meds & Active Scripts Active Thera/Beta-Carotene (Multiple Vitamin) 1 Tab Tab 1 Tab PO DAILY Potassium Chloride ER (Potassium Chloride) 10 Meq Cap 10 Meq PO DAILY Hydrocodone-Acetaminophen 5-325 mg Tab 1 Tab PO Q6HR PRN Acetaminophen 325 Mg Tab 650 Mg PO Q8HR PRN Furosemide 20 Mg Tab 20 Mg PO DAILY Senna Plus 8.6-50 mg (Sennosides-Docusate Sodium) 1 Tab Tab 2 Tab PO DAILY Lidoderm Patch 12 HR (Lidocaine) 5% Patch 1 Patch TD DAILY Konsyl (Psyllium Hydrophilic Mucilloid) 100 % Pow 1 Pkt PO BID Polyethylene Glycol 3350 Powder (Polyethylene Glycol) 17 Gm Pow 17 Gm PO DAILY Mucinex ER 12 HR (Guaifenesin) 600 Mg Gena 600 Mg PO BID Famotidine 20 Mg Tab 10 Mg PO BID Lipitor (Atorvastatin Calcium) 20 Mg Tab 20 Mg PO HS Aspirin EC (Aspirin) 81 Mg Tabdr 81 Mg PO DAILY Zoloft (Sertraline HCl) 50 Mg Tab 50 Mg PO DAILY [Albuterol Concentrated Neb] 2.5 MG/0.5 ML Nebu 2.5 Mg NEB Q6HR NEB Review of Systems Except as stated in HPI: all other systems reviewed are Neg Physical Exam Narrative GENERAL: 86-year-old female well-nourished well-developed no acute distress SKIN: Focused skin assessment warm/dry. HEAD: Atraumatic. Normocephalic. EYES: Pupils equal and round. No scleral icterus. No injection or drainage. ENT: No nasal bleeding or discharge. Mucous membranes pink and moist. NECK: Trachea midline. No JVD. CARDIOVASCULAR: Regular rate and rhythm. No murmur appreciated. RESPIRATORY: No accessory muscle use. Clear to auscultation. Breath sounds equal bilaterally. GASTROINTESTINAL: Abdomen soft, non-tender, nondistended. Hepatic and splenic margins not palpable. MUSCULOSKELETAL: No obvious deformities. No clubbing. No cyanosis. No edema. NEUROLOGICAL: Awake and alert. No obvious cranial nerve deficits. Motor grossly within normal limits. Normal speech. PSYCHIATRIC: Appropriate mood and affect; insight and judgment normal. Data Data Last Documented VS Vital Signs Date Time Temp Pulse Resp B/P Pulse Ox O2 Delivery O2 Flow Rate FiO2 11/20/16 13:41 98.2 145 16 138/64 95 Orders Electrocardiogram (11/20/16 13:46) Complete Blood Count With Diff (11/20/16 13:46) Basic Metabolic Panel (Bmp) (11/20/16 13:46) Ckmb (Isoenzyme) Profile (11/20/16 13:46) Troponin I (11/20/16 13:46) Chest, Single Ap (11/20/16 13:46) Iv Access Insert/Monitor (11/20/16 13:46) Ecg Monitoring (11/20/16 13:46) Oxygen Administration (11/20/16 13:46) Oximetry (11/20/16 13:46) Prothrombin Time / Inr (Pt) (11/20/16 13:46) CKMB (11/20/16 14:06) CKMB% (11/20/16 14:06) Diltiazem Drip Inj Premix (Cardizem Drip (11/20/16 15:45) Diltiazem Inj (Cardizem Inj) (11/20/16 15:45) Diltiazem Inj (Cardizem Inj) (11/20/16 16:00) Admit Order (Ed Use Only) (11/20/16 15:55) Labs Laboratory Tests Test 11/20/16 14:06 White Blood Count 4.3 TH/MM3 Red Blood Count 4.54 MIL/MM3 Hemoglobin 13.9 GM/DL Hematocrit 41.4 % Mean Corpuscular Volume 91.3 FL Mean Corpuscular Hemoglobin 30.7 PG Mean Corpuscular Hemoglobin 33.6 % Concent Red Cell Distribution Width 13.7 % Platelet Count 181 TH/MM3 Mean Platelet Volume 8.1 FL Neutrophils (%) (Auto) 68.2 % Lymphocytes (%) (Auto) 22.9 % Monocytes (%) (Auto) 8.1 % Eosinophils (%) (Auto) 0.3 % Basophils (%) (Auto) 0.5 % Neutrophils # (Auto) 2.9 TH/MM3 Lymphocytes # (Auto) 1.0 TH/MM3 Monocytes # (Auto) 0.4 TH/MM3 Eosinophils # (Auto) 0.0 TH/MM3 Basophils # (Auto) 0.0 TH/MM3 CBC Comment DIFF FINAL Differential Comment Prothrombin Time 11.1 SEC Prothromb Time International 1.0 RATIO Ratio Sodium Level 139 MEQ/L Potassium Level 4.1 MEQ/L Chloride Level 103 MEQ/L Carbon Dioxide Level 27.0 MEQ/L Anion Gap 9 MEQ/L Blood Urea Nitrogen 31 MG/DL Creatinine 1.52 MG/DL Estimat Glomerular Filtration 32 ML/MIN Rate Random Glucose 140 MG/DL Calcium Level 9.5 MG/DL Total Creatine Kinase 156 U/L Creatine Kinase MB 2.6 NG/ML Troponin I LESS THAN 0.02 NG/ML MDM Medical Decision Making Medical Screen Exam Complete: Yes Emergency Medical Condition: Yes Medical Record Reviewed: Yes Differential Diagnosis NSTEMI, unstable angina, coronary vasospasm, PE, PTX, aortic dissection, pericarditis, myocarditis, endocarditis, PNA, esophageal disease, aneurysm, musculoskeletal etiologies, anxiety, cocaine/sympathomimetic abuse Narrative Course CBC & BMP Diagram 11/20/16 14:06 EKG: Atrial fibrillation, rate 135 Troponin less than 0.02 EKG reveals atrial fibrillation at a rate of 135 Medtronic interrogation reveals supraventricular tachycardic rhythms as high as 200. The patient received 10 mg of diltiazem followed by diltiazem drip. She'll be admitted under Dr. Antony's service. Case d/w YAYA Krupa. Diagnosis Primary Impression: Atrial fibrillation with rapid ventricular response Admitting Information Admitting Physician Requests: Admit Alexis Wiggins MD Nov 20, 2016 15:21
[2016-11-20] MEDS ORDERED: DILTIAZEM DRIP INJ PREMIX 125 ML IV SCH (15:45)
[2016-11-20] MEDS ORDERED: DILTIAZEM HCL 25 MG/5 ML VIAL IV ONE (15:45)
[2016-11-20] MEDS ORDERED: DILTIAZEM INJ 125 MG in SODIUM CHLORIDE 0.9% INJ 100 ML IV SCH (16:00)
[2016-11-20] MEDS ORDERED: DILTIAZEM 125 MG/NS 100 ML IV SCH ×2 (16:00)
[2016-11-20] MEDS ORDERED: SODIUM CHLORIDE 0.9% FLUSH 10 ML FLUSH IV FLUSH PRN (16:00)
--- NOTE | 2016-11-20 17:58 | EKG ---
Date Performed: 11/20/2016 Time Performed: 13:53:35 PTAGE: 86 years EKG: BASELINE ARTIFACT PRESENT. Unclear underlying tachycardia Nonspecific ST-T wave changes ABN ORMAL ECG COMPARED TO PRIOR ELECTROCARDIOGRAM, tachycardia is now present. PREVIOUS TRACING : 06/11/2016 12.35 DOCTOR: Nicholas Shaw Interpretating Date/Time 11/20/2016 17:57:38
[2016-11-20] MEDS: ENOXAPARIN SODIUM 100 MG/ML SYRINGE SQ SCH (18:09)
[2016-11-20] MEDS ORDERED: APIX2.5T PO (22:42)
[2016-11-20] MEDS: SODIUM CHLORIDE 0.9% FLUSH 10 ML FLUSH IV FLUSH SCH (23:44)
[2016-11-20] MEDS: ACETAMINOPHEN 325 MG TAB PO PRN (23:44)
[2016-11-20] MEDS: ATORVASTATIN 20 MG TAB PO SCH (23:44)
[2016-11-21] VITALS (25 sets, daily range): BP systolic 91–122; BP diastolic 52–71; PULSE 56–132; RESP 16–18; TEMP 97.9–98.6; O2SAT 96–98
[2016-11-21] MEDS: ENOXAPARIN SODIUM 100 MG/ML SYRINGE SQ SCH (04:22)
[2016-11-21 04:42] LABS: MEAN CELL VOLUME 91.4 FL (80.0-100.0); MEAN CORPUSCULAR HEMOGLOBIN 30.5 PG (27.0-34.0); MEAN CORPUSCULAR HGB CONC 33.4 % (32.0-36.0); PLATELET COUNT 158 TH/MM3 (150-450); RED BLOOD COUNT 4.27 MIL/MM3 (4.00-5.30); RED CELL DISTRIBUTION WIDTH 13.7 % (11.6-17.2); REVIEW FLAG FINAL; WHITE BLOOD COUNT 4.3 TH/MM3 (4.0-11.0)
[2016-11-21 05:02] LABS: BICARBONATE 28.3 MEQ/L (21.0-32.0); POTASSIUM 3.9 MEQ/L (3.5-5.1)
[2016-11-21] MEDS: SODIUM CHLOR 0.9% 1000 ML INJ 1,000 ML IV SCH ×2 (05:15→15:15)
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
[2016-11-21] MEDS ORDERED: ACETAMINOPHEN 325 MG TAB PO PRN (07:00)
[2016-11-21] MEDS ORDERED: ACETAMINOPHEN/HYDROcodone 325 MG/5 MG TAB PO PRN (07:00)
[2016-11-21] MEDS: SERTRALINE HCL 50 MG TAB PO SCH (08:24)
[2016-11-21] MEDS: SODIUM CHLORIDE 0.9% FLUSH 10 ML FLUSH IV FLUSH SCH ×2 (08:24→20:47)
[2016-11-21] MEDS: FAMOTIDINE 20 MG TAB PO SCH ×2 (08:24→20:48)
[2016-11-21] MEDS: ONDANSETRON ODT 4 MG TAB PO PRN (08:24)
[2016-11-21] MEDS: ACETAMINOPHEN 325 MG TAB PO PRN ×2 (08:36→16:13)
--- NOTE | 2016-11-21 14:32 | MB ---
cc: KEYSHAWN ALVAREZ DO DATE OF CONSULTATION: 11/21/2016. IMPRESSIONS: 1. Paroxysmal atrial fibrillation with rapid ventricular response. 2. Advanced age. 3. Hypertension. 4. Apparently the patient had a stroke in May. 5. Dyslipidemia. RECOMMENDATIONS: 1. Resume home medications. The patient apparently was not on any AV blocking drug when she came in. I would resume diltiazem long-acting form 120 milligrams once a day for treatment of both her blood pressure and her atrial fibrillation. 2. Resume Eliquis 2.5 twice a day. 3. The patient may be discharged and will follow up with Dr. Tobar. HISTORY OF PRESENT ILLNESS / CLINICAL DATA: Mrs. Andino is an 86-year-old female who was admitted to the hospital with complaints of weakness and dizziness in atrial fibrillation. She has a history of paroxysmal atrial fibrillation. She is on antithrombin therapy as noted above. She has no history of syncope. She had a stroke in May which was when she was initially diagnosed. She states she has had high blood pressure for several years and apparently has been on and off medications for this as her pressure has not really been that high. PAST SURGICAL HISTORY: Her past surgical history includes left knee surgery. PAST MEDICAL HISTORY 1. She has no history of seizure. 2. She has had no recent neurologic event. 3. She has no history of asthma or bronchitis. SOCIAL HISTORY: She does not smoke or drink alcohol. She drinks two cups of caffeinated coffee per day. No history of acid peptic disease, GI bleeding. No bleeding complications from Eliquis. No history of liver, gallbladder, kidney or thyroid disease according to the patient. She has had no chest pain. She has no history of atherosclerotic heart disease, myocardial infarction, congestive heart failure or ventricular arrhythmias. She has had no recent neurological deficits, amaurosis fugax, claudication-type symptoms, lower extremity edema, et cetera. PHYSICAL EXAMINATION: GENERAL: The physical exam at this time demonstrates an alert oriented female who is sitting up in bed. VITAL SIGNS: She has a heart rate of approximately 90 irregular irregular rhythm. Last blood pressure 90/50. HEAD, EYES, EARS, NOSE, THROAT: Anicteric sclerae. NECK: Jugular venous pressures are normal. There are no bruits. LUNGS: She has clear lung kelly. CARDIAC: Irregularly irregular rhythm. No S3. There is a 1/6 systolic ejection murmur. ABDOMEN: Soft, nontender. EXTREMITIES: Free of cyanosis, clubbing, edema. LABORATORY EVALUATION: White cell count 4300, hematocrit 39%, platelet count 158,000. Electrolytes: 140, 3.9, 104, 28 with a BUN of 34, creatinine of 1.45. EKGS: 12-lead electrocardiogram demonstrates a regular tachycardia, which may represent sinus tachycardia and/or atrial flutter. Clinical exam now, the patient is in an irregularly irregular rhythm. IMAGING STUDIES: Chest x-ray demonstrates normal heart size. The patient appears to have a loop recorder in place. She has got flattened diaphragms, hyperinflated lungs, no infiltrates noted. DISCUSSION: This is an 86-year-old female admitted to hospital with atrial fibrillation. She is minimally symptomatic. She does have a history of a stroke. RECOMMENDATIONS: As noted above. DO BRADEN Pappas/DOMINIC /2:09 PM /2:23 PM
[2016-11-21] MEDS: DILTIAZEM HCL 30 MG TAB PO SCH (18:03)
[2016-11-21] MEDS: ATORVASTATIN 20 MG TAB PO SCH ×2 (20:47)
[2016-11-21] MEDS: DOCUSATE SODIUM 100 MG CAP PO SCH (20:49)
[2016-11-22] VITALS (23 sets, daily range): BP systolic 99–117; BP diastolic 57–69; PULSE 62–120; RESP 16–18; TEMP 95–98.1; O2SAT 95–98
[2016-11-22] MEDS: SODIUM CHLOR 0.9% 1000 ML INJ 1,000 ML IV SCH ×3 (01:15→21:15)
[2016-11-22 05:44] LABS: AUTOMATED NEUTROPHIL # 1.6 TH/MM3 (1.8-7.7); BASOPHIL % 0.7 % (0.0-2.0); EOSINOPHIL # 0.1 TH/MM3 (0-0.4); EOSINOPHIL % 2.6 % (0.0-4.0); HEMATOCRIT 37.9 % (35.0-46.0); HEMO FLAGS DIFF FINAL; LYMPH % 40.5 % (9.0-44.0); LYMPHOCYTE # 1.5 TH/MM3 (1.0-4.8); MEAN CELL VOLUME 92.9 FL (80.0-100.0); MEAN CORPUSCULAR HEMOGLOBIN 30.6 PG (27.0-34.0); MEAN CORPUSCULAR HGB CONC 32.9 % (32.0-36.0); MONO % 11.9 % (0.0-8.0); NEUT % 44.3 % (16.0-70.0); PLATELET COUNT 147 TH/MM3 (150-450); RED BLOOD COUNT 4.09 MIL/MM3 (4.00-5.30); RED CELL DISTRIBUTION WIDTH 13.5 % (11.6-17.2); WHITE BLOOD COUNT 3.7 TH/MM3 (4.0-11.0)
[2016-11-22] MEDS: ENOXAPARIN SODIUM 100 MG/ML SYRINGE SQ SCH (06:19)
[2016-11-22 06:26] LABS: ALKALINE PHOSPHATASE 52 U/L (45-117); ALT (GPT) 21 U/L (10-53); ANION GAP 7 MEQ/L (5-15); AST (GOT) 21 U/L (15-37); BICARBONATE 26.6 MEQ/L (21.0-32.0); BLOOD UREA NITROGEN 34 MG/DL (7-18); CHLORIDE 109 MEQ/L (98-107); FREE T3 1.93 PG/ML (2.18-3.98); GLOMERULAR FILTRATION RATE 43 ML/MIN (>89); MAGNESIUM 1.8 MG/DL (1.5-2.5); POTASSIUM 3.7 MEQ/L (3.5-5.1); SODIUM (NA) 143 MEQ/L (136-145); TOTAL BILIRUBIN ADULT 0.4 MG/DL (0.2-1.0)
[2016-11-22] MEDS: DOCUSATE SODIUM 100 MG CAP PO SCH ×2 (08:02→21:11)
[2016-11-22] MEDS: SERTRALINE HCL 50 MG TAB PO SCH (08:02)
[2016-11-22] MEDS: FAMOTIDINE 20 MG TAB PO SCH ×2 (08:02→21:12)
[2016-11-22] MEDS: DILTIAZEM HCL 30 MG TAB PO SCH ×3 (08:02→17:16)
[2016-11-22] MEDS: ACETAMINOPHEN 325 MG TAB PO PRN ×3 (08:06→17:17)
[2016-11-22] MEDS: SODIUM CHLORIDE 0.9% FLUSH 10 ML FLUSH IV FLUSH SCH ×2 (09:00→21:16)
--- NOTE | 2016-11-22 15:27 | PD.CARD.PN ---
Objective Vital Signs / I&O Vital Signs Date Time Temp Pulse Resp B/P Pulse Ox O2 Delivery O2 Flow Rate FiO2 11/22/16 14:20 80 11/22/16 13:03 79 11/22/16 12:18 120 11/22/16 11:39 92 11/22/16 11:00 98.0 94 18 117/62 96 11/22/16 10:09 91 11/22/16 09:00 85 11/22/16 08:33 109 11/22/16 07:00 98.0 68 18 100/63 98 11/22/16 07:00 85 11/22/16 05:00 81 11/22/16 04:00 102 11/22/16 03:00 98.1 91 16 99/69 95 11/22/16 03:00 88 11/22/16 02:00 77 11/22/16 01:00 68 11/22/16 00:01 98 11/21/16 23:58 98.1 98 16 111/66 96 11/21/16 23:00 71 11/21/16 22:00 72 11/21/16 21:00 64 11/21/16 20:44 97.9 77 16 97/60 97 11/21/16 20:00 77 11/21/16 19:00 106 11/21/16 18:00 115 11/21/16 17:58 110 11/21/16 16:00 130 I/O 11/21/16 11/21/16 11/21/16 11/22/16 11/22/16 11/22/16 07:00 15:00 23:00 07:00 15:00 23:00 Intake Total 440 ml 1300 ml 240 ml Output Total 300 ml 800 ml 300 ml Balance 140 ml 500 ml -60 ml Intake Oral 240 ml 400 ml 240 ml IV Total 200 ml 900 ml Output Urine Total 300 ml 800 ml 300 ml # Bowel Movements 1 1 0 Laboratory Laboratory Tests Test 11/22/16 04:27 White Blood Count 3.7 TH/MM3 Red Blood Count 4.09 MIL/MM3 Hemoglobin 12.5 GM/DL Hematocrit 37.9 % Mean Corpuscular Volume 92.9 FL Mean Corpuscular Hemoglobin 30.6 PG Mean Corpuscular Hemoglobin 32.9 % Concent Red Cell Distribution Width 13.5 % Platelet Count 147 TH/MM3 Mean Platelet Volume 8.0 FL Neutrophils (%) (Auto) 44.3 % Lymphocytes (%) (Auto) 40.5 % Monocytes (%) (Auto) 11.9 % Eosinophils (%) (Auto) 2.6 % Basophils (%) (Auto) 0.7 % Neutrophils # (Auto) 1.6 TH/MM3 Lymphocytes # (Auto) 1.5 TH/MM3 Monocytes # (Auto) 0.4 TH/MM3 Eosinophils # (Auto) 0.1 TH/MM3 Basophils # (Auto) 0.0 TH/MM3 CBC Comment DIFF FINAL Differential Comment Sodium Level 143 MEQ/L Potassium Level 3.7 MEQ/L Chloride Level 109 MEQ/L Carbon Dioxide Level 26.6 MEQ/L Anion Gap 7 MEQ/L Blood Urea Nitrogen 34 MG/DL Creatinine 1.18 MG/DL Estimat Glomerular Filtration 43 ML/MIN Rate Random Glucose 108 MG/DL Calcium Level 8.4 MG/DL Magnesium Level 1.8 MG/DL Total Bilirubin 0.4 MG/DL Aspartate Amino Transf 21 U/L (AST/SGOT) Alanine Aminotransferase 21 U/L (ALT/SGPT) Alkaline Phosphatase 52 U/L Total Protein 6.4 GM/DL Albumin 3.3 GM/DL Free Triiodothyronine (T3) 1.93 PG/ML pg/dL Assessment and Plan Discussed Condition With PT STABLE STILL IN AF HR 80'S TO 120'S STARTED DILTIAZEM YESTERDAY NO C/O OF CP SOB OR DIZZYNESS LCTA IRREGULAR NO S3 NO EDEMA NEED RECENT ECHO AND RESUME ANTI COAGULATION DR MONROY WILL SEE IN AM Durga Briscoe DO Nov 22, 2016 15:27
[2016-11-22] MEDS ORDERED: BISACODYL 10 MG SUPP RECTAL PRN (19:00)
[2016-11-22] MEDS: ATORVASTATIN 20 MG TAB PO SCH ×2 (21:15)
[2016-11-23] VITALS (31 sets, daily range): BP systolic 87–130; BP diastolic 51–74; PULSE 62–134; RESP 16–19; TEMP 98–99.1; O2SAT 96–98
[2016-11-23] MEDS: ENOXAPARIN SODIUM 100 MG/ML SYRINGE SQ SCH (05:31)
[2016-11-23] MEDS: SODIUM CHLOR 0.9% 1000 ML INJ 1,000 ML IV SCH ×2 (07:15→18:31)
[2016-11-23] MEDS: FAMOTIDINE 20 MG TAB PO SCH ×2 (08:46→22:38)
[2016-11-23] MEDS: SERTRALINE HCL 50 MG TAB PO SCH (08:46)
[2016-11-23] MEDS: DILTIAZEM HCL 30 MG TAB PO SCH ×3 (08:46→18:31)
[2016-11-23] MEDS: DOCUSATE SODIUM 100 MG CAP PO SCH ×2 (08:46→20:31)
[2016-11-23] MEDS: SODIUM CHLORIDE 0.9% FLUSH 10 ML FLUSH IV FLUSH SCH ×2 (08:47→20:31)
--- NOTE | 2016-11-23 10:17 | PD.CARD.PN ---
Subjective Subjective Remarks HR up Objective Medications Administered Medications Medications (Trade) Dose Ordered Sig/Albert Route PRN Reason Start Time Stop Time Status Last Admin Dose Admin Sodium Chloride 2 ml 2 ml BID IV FLUSH 11/20/16 21:00 11/23/16 08:47 Diltiazem HCl/ Sodium Chloride (Cardizem Inj/NS Inj) 125 ml @ 0 mls/hr TITRATE IV 11/20/16 16:00 11/20/16 18:06 Acetaminophen (Tylenol) 650 mg Q8H PRN PO PAIN 1-6 11/20/16 23:15 11/22/16 16:18 Atorvastatin Calcium (Lipitor) 20 mg HS PO 11/20/16 23:14 11/22/16 21:15 Ondansetron HCl (Zofran Odt) 4 mg Q4H PRN PO NAUSEA 11/21/16 06:45 11/21/16 08:24 Atorvastatin Calcium (Lipitor) 20 mg HS PO 11/21/16 21:00 11/22/16 21:15 Famotidine (Pepcid) 10 mg BID PO 11/21/16 09:00 11/23/16 08:46 Sertraline HCl (Zoloft) 50 mg DAILY PO 11/21/16 09:00 11/23/16 08:46 Enoxaparin Sodium (Lovenox Inj) 50 mg Q24H SQ 11/22/16 05:00 11/23/16 05:31 Docusate Sodium (Colace) 100 mg BID PO 11/21/16 21:00 11/23/16 08:46 Diltiazem HCl (Cardizem) 30 mg TID PO 11/21/16 18:00 11/23/16 08:46 Bisacodyl (Dulcolax Supp) 10 mg BID PRN RECTAL CONSTIPATION 11/22/16 19:00 11/23/16 05:31 Vital Signs / I&O Vital Signs Date Time Temp Pulse Resp B/P Pulse Ox O2 Delivery O2 Flow Rate FiO2 11/23/16 06:00 88 11/23/16 05:00 74 11/23/16 04:00 76 11/23/16 03:34 98.6 71 16 116/74 96 11/23/16 03:00 68 11/23/16 02:00 66 11/23/16 01:00 68 11/23/16 00:47 98.2 70 16 114/65 98 11/23/16 00:00 70 11/22/16 23:00 62 11/22/16 22:00 68 11/22/16 21:00 68 11/22/16 20:00 94 11/22/16 20:00 98.0 69 16 111/57 97 11/22/16 19:00 92 11/22/16 18:00 98 11/22/16 16:00 79 11/22/16 15:35 95.0 95 16 102/57 95 11/22/16 14:20 80 11/22/16 13:03 79 11/22/16 12:18 120 11/22/16 11:39 92 11/22/16 11:00 98.0 94 18 117/62 96 I/O 11/22/16 11/22/16 11/22/16 11/23/16 11/23/16 11/23/16 07:00 15:00 23:00 07:00 15:00 23:00 Intake Total 240 ml 900 ml 240 ml Output Total 300 ml 800 ml 450 ml Balance -60 ml 100 ml -210 ml Intake Oral 240 ml 900 ml 240 ml IV Total 0 ml 0 ml Output Urine Total 300 ml 800 ml 450 ml # Voids 5 # Bowel Movements 0 0 0 Physical Exam GENERAL: Well-nourished, well-developed patient in no apparent distress. elderly afib SKIN: Warm and dry. NECK: JVD normal - less than or equal to 5 cm H20. CARDIOVASCULAR: Regular rate and rhythm without murmurs, gallops or rubs. RESPIRATORY: Normal breath sounds - equal bilaterally. No accessory muscle use. No wheezes, rales or rubs. PERIPHERY: No cyanosis or edema. Laboratory Laboratory Tests Test 11/20/16 11/21/16 11/22/16 14:06 03:50 04:27 Monocytes (%) (Auto) 8.1 % (0.0-8.0) 11.9 % (0.0-8.0) Blood Urea Nitrogen 31 MG/DL (7-18) 34 MG/DL (7-18) 34 MG/DL (7-18) Creatinine 1.52 MG/DL 1.45 MG/DL 1.18 MG/DL (0.50-1.00) (0.50-1.00) (0.50-1.00) Estimat Glomerular Filtration 32 ML/MIN (>89) 34 ML/MIN (>89) 43 ML/MIN (>89) Rate Random Glucose 140 MG/DL 110 MG/DL 108 MG/DL (74-106) (74-106) (74-106) Troponin I LESS THAN 0.02 NG/ML (0.02-0.05) White Blood Count 3.7 TH/MM3 (4.0-11.0) Platelet Count 147 TH/MM3 (150-450) Neutrophils # (Auto) 1.6 TH/MM3 (1.8-7.7) Chloride Level 109 MEQ/L (98-107) Calcium Level 8.4 MG/DL (8.5-10.1) Albumin 3.3 GM/DL (3.4-5.0) Free Triiodothyronine (T3) 1.93 PG/ML pg/dL (2.18-3.98) Assessment and Plan Assessment and Plan Will restart Eliquis and start on Teena Calvillo MD Nov 23, 2016 10:17
[2016-11-23] MEDS: DRONEDARONE 400 MG TAB PO SCH ×2 (11:11→20:31)
[2016-11-23] MEDS: ONDANSETRON ODT 4 MG TAB PO PRN (13:25)
--- NOTE | 2016-11-23 15:46 | HHI.PR ---
Subjective Remarks feeling better multac started constipated though Objective Vital Signs Date Time Temp Pulse Resp B/P Pulse Ox O2 Delivery O2 Flow Rate FiO2 11/23/16 15:29 87/52 11/23/16 15:15 98.8 65 16 89/51 96 11/23/16 13:06 109 11/23/16 12:51 129/70 11/23/16 12:00 110 11/23/16 11:30 98.0 99 16 104/71 96 11/23/16 11:00 91 11/23/16 10:00 116 11/23/16 09:00 74 11/23/16 08:00 74 11/23/16 08:00 98.0 99 19 115/72 98 11/23/16 07:00 76 11/23/16 06:00 88 11/23/16 05:00 74 11/23/16 04:00 76 11/23/16 03:34 98.6 71 16 116/74 96 11/23/16 03:00 68 11/23/16 02:00 66 11/23/16 01:00 68 11/23/16 00:47 98.2 70 16 114/65 98 11/23/16 00:00 70 11/22/16 23:00 62 11/22/16 22:00 68 11/22/16 21:00 68 11/22/16 20:00 94 11/22/16 20:00 98.0 69 16 111/57 97 11/22/16 19:00 92 11/22/16 18:00 98 11/22/16 16:00 79 I/O 11/22/16 11/22/16 11/22/16 11/23/16 11/23/16 11/23/16 07:00 15:00 23:00 07:00 15:00 23:00 Intake Total 240 ml 900 ml 240 ml Output Total 300 ml 800 ml 450 ml Balance -60 ml 100 ml -210 ml Intake Oral 240 ml 900 ml 240 ml IV Total 0 ml 0 ml Output Urine Total 300 ml 800 ml 450 ml # Voids 5 # Bowel Movements 0 0 0 Result Diagram: 11/22/16 0427 11/22/16 0427 Objective Remarks pt has had problems when getting up becomes tachacardic will encourage activity while on moniter and dc if stable hr and bp x 24 hours Medications and IVs Inpatient Medications Acetaminophen (Tylenol) 650 mg Q8HR PRN PO PAIN SCALE 1 TO 6; Start 11/21/16 at 07:00 Acetaminophen/ Hydrocodone Bitart ([place] 5-325 Mg) 1 tab Q6HR PRN PO PAIN SCALE 7 TO 10; Start 11/21/16 at 07:00 Apixaban (Eliquis) 2.5 mg BID PO ; Start 11/24/16 at 09:00 Atorvastatin Calcium (Lipitor) 20 mg HS PO Last administered on 11/22/16 21:15 ; Start 11/21/16 at 21:00 Atorvastatin Calcium 20 mg 20 mg HS PO Last administered on 11/22/16 21:15; Start 11/20/16 at 23:14 Bisacodyl (Dulcolax Supp) 10 mg BID PRN RECTAL CONSTIPATION Last administered on 11/23/16 05:31; Start 11/22/16 at 19:00 Diltiazem HCl (Cardizem Drip Inj Premix) 125 ml @ 0 mls/hr TITRATE IV ; Start at 15:45; Stop 11/20/16 at 15:54; Status DC Diltiazem HCl (Cardizem Inj) 10 mg ONCE ONCE IV Last administered on 15:45; Start 11/20/16 at 15:45; Stop 11/20/16 at 15:46; Status DC Diltiazem HCl (Cardizem) 30 mg TID PO Last administered on 11/23/16 12:50; Start 11/21/16 at 18:00 Diltiazem HCl/ Sodium Chloride (Cardizem Inj/NS Inj) 125 ml @ 0 mls/hr TITRATE IV Last administered on 11/20/16 18:06; Start 11/20/16 at 16:00 Docusate Sodium (Colace) 100 mg BID PO Last administered on 11/23/16 08:46; Start 11/21/16 at 21:00 Dronedarone (Multaq) 400 mg BID PO Last administered on 11/23/16 11:11; Start 11/23/16 at 11:00 Enoxaparin Sodium (Lovenox Inj) 50 mg Q24H SQ Last administered on 11/23/16 05: 31; Start 11/22/16 at 05:00; Stop 11/23/16 at 10:14; Status DC Famotidine (Pepcid) 10 mg BID PO Last administered on 11/23/16 08:46; Start 11/21/16 at 09:00 Ondansetron HCl (Zofran Odt) 4 mg Q4H PRN PO NAUSEA Last administered on 13:25; Start 11/21/16 at 06:45 Sertraline HCl (Zoloft) 50 mg DAILY PO Last administered on 11/23/16 08:46; Start 11/21/16 at 09:00 Sodium Chloride (NS 1000 ml Inj) 1,000 ml @ 100 mls/hr Q10H IV ; Start 11/21/16 at 05:15 Sodium Chloride (NS Flush) 2 ml UNSCH PRN IV FLUSH FLUSH AFTER USING IV ACCESS ; Start 11/20/16 at 16:00 Sodium Chloride 2 ml 2 ml BID IV FLUSH Last administered on 11/23/16 08:47; Start 11/20/16 at 21:00 Assessment and Plan Problem List: (1) Atrial fibrillation with rapid ventricular response Status: Acute Plan: now stabilized will continue medical management cardiology consulted (2) Hypertension Status: Chronic Plan: previously on cardizem off and on will probably return Assessment and Plan a fib rvr now stabilized for the moment begin multac moniter x 24 hours if bp hr stable then dc home Discussed Condition With patient and cardiology Fabio Antoyn DO Nov 23, 2016 15:46
--- NOTE | 2016-11-23 15:51 | HHI.PR ---
Subjective Remarks fu late note for 11/22 erroneously entered on another patient Objective Vital Signs Date Time Temp Pulse Resp B/P Pulse Ox O2 Delivery O2 Flow Rate FiO2 11/23/16 15:29 87/52 11/23/16 15:15 98.8 65 16 89/51 96 11/23/16 13:06 109 11/23/16 12:51 129/70 11/23/16 12:00 110 11/23/16 11:30 98.0 99 16 104/71 96 11/23/16 11:00 91 11/23/16 10:00 116 11/23/16 09:00 74 11/23/16 08:00 74 11/23/16 08:00 98.0 99 19 115/72 98 11/23/16 07:00 76 11/23/16 06:00 88 11/23/16 05:00 74 11/23/16 04:00 76 11/23/16 03:34 98.6 71 16 116/74 96 11/23/16 03:00 68 11/23/16 02:00 66 11/23/16 01:00 68 11/23/16 00:47 98.2 70 16 114/65 98 11/23/16 00:00 70 11/22/16 23:00 62 11/22/16 22:00 68 11/22/16 21:00 68 11/22/16 20:00 94 11/22/16 20:00 98.0 69 16 111/57 97 11/22/16 19:00 92 11/22/16 18:00 98 11/22/16 16:00 79 I/O 11/22/16 11/22/16 11/22/16 11/23/16 11/23/16 11/23/16 07:00 15:00 23:00 07:00 15:00 23:00 Intake Total 240 ml 900 ml 240 ml Output Total 300 ml 800 ml 450 ml Balance -60 ml 100 ml -210 ml Intake Oral 240 ml 900 ml 240 ml IV Total 0 ml 0 ml Output Urine Total 300 ml 800 ml 450 ml # Voids 5 # Bowel Movements 0 0 0 Result Diagram: 11/22/16 0427 11/22/16 042 Objective Remarks pt has had problems with tachacardia cardizem 30mg started Medications and IVs Inpatient Medications Acetaminophen (Tylenol) 650 mg Q8HR PRN PO PAIN SCALE 1 TO 6; Start 11/21/16 at 07:00 Acetaminophen/ Hydrocodone Bitart ([place] 5-325 Mg) 1 tab Q6HR PRN PO PAIN SCALE 7 TO 10; Start 11/21/16 at 07:00 Apixaban (Eliquis) 2.5 mg BID PO ; Start 11/24/16 at 09:00 Atorvastatin Calcium (Lipitor) 20 mg HS PO Last administered on 11/22/16 21:15 ; Start 11/21/16 at 21:00 Atorvastatin Calcium 20 mg 20 mg HS PO Last administered on 11/22/16 21:15; Start 11/20/16 at 23:14 Bisacodyl (Dulcolax Supp) 10 mg BID PRN RECTAL CONSTIPATION Last administered on 11/23/16 05:31; Start 11/22/16 at 19:00 Diltiazem HCl (Cardizem Drip Inj Premix) 125 ml @ 0 mls/hr TITRATE IV ; Start at 15:45; Stop 11/20/16 at 15:54; Status DC Diltiazem HCl (Cardizem Inj) 10 mg ONCE ONCE IV Last administered on 15:45; Start 11/20/16 at 15:45; Stop 11/20/16 at 15:46; Status DC Diltiazem HCl (Cardizem) 30 mg TID PO Last administered on 11/23/16 12:50; Start 11/21/16 at 18:00 Diltiazem HCl/ Sodium Chloride (Cardizem Inj/NS Inj) 125 ml @ 0 mls/hr TITRATE IV Last administered on 11/20/16 18:06; Start 11/20/16 at 16:00 Docusate Sodium (Colace) 100 mg BID PO Last administered on 11/23/16 08:46; Start 11/21/16 at 21:00 Dronedarone (Multaq) 400 mg BID PO Last administered on 11/23/16 11:11; Start 11/23/16 at 11:00 Enoxaparin Sodium (Lovenox Inj) 50 mg Q24H SQ Last administered on 11/23/16 05: 31; Start 11/22/16 at 05:00; Stop 11/23/16 at 10:14; Status DC Famotidine (Pepcid) 10 mg BID PO Last administered on 11/23/16 08:46; Start 11/21/16 at 09:00 Ondansetron HCl (Zofran Odt) 4 mg Q4H PRN PO NAUSEA Last administered on 13:25; Start 11/21/16 at 06:45 Sertraline HCl (Zoloft) 50 mg DAILY PO Last administered on 11/23/16 08:46; Start 11/21/16 at 09:00 Sodium Chloride (NS 1000 ml Inj) 1,000 ml @ 100 mls/hr Q10H IV ; Start 11/21/16 at 05:15 Sodium Chloride (NS Flush) 2 ml UNSCH PRN IV FLUSH FLUSH AFTER USING IV ACCESS ; Start 11/20/16 at 16:00 Sodium Chloride 2 ml 2 ml BID IV FLUSH Last administered on 11/23/16 08:47; Start 11/20/16 at 21:00 Assessment and Plan Problem List: (1) Atrial fibrillation with rapid ventricular response Status: Acute Plan: now stabilized will continue medical management cardiology consulted add [id number] mg bid (2) Hypertension Status: Chronic Plan: previously on cardizem off and on will probably return Assessment and Plan a fib rvr now stabilized for the moment begin multac moniter x 24 hours if bp hr stable then dc Fabio Dubois DO Nov 23, 2016 15:51
[2016-11-23] MEDS: ATORVASTATIN 20 MG TAB PO SCH ×3 (20:31→22:53)
[2016-11-23] MEDS: ACETAMINOPHEN 325 MG TAB PO PRN (22:06)
[2016-11-23] MEDS: PSYLLIUM FIBER SF/GF 6 GM POWD PKT PO SCH (22:39)
[2016-11-24] VITALS (26 sets, daily range): BP systolic 104–136; BP diastolic 51–67; PULSE 49–82; RESP 16–18; TEMP 97.5–98.9; O2SAT 93–99
[2016-11-24] MEDS: SODIUM CHLOR 0.9% 1000 ML INJ 1,000 ML IV SCH ×3 (03:15→23:15)
[2016-11-24] MEDS: PSYLLIUM FIBER SF/GF 6 GM POWD PKT PO SCH ×2 (09:00→20:45)
[2016-11-24] MEDS: DILTIAZEM HCL 30 MG TAB PO SCH ×3 (09:03→18:09)
[2016-11-24] MEDS: FAMOTIDINE 20 MG TAB PO SCH ×2 (09:03→20:42)
[2016-11-24] MEDS: DOCUSATE SODIUM 100 MG CAP PO SCH ×2 (09:03→20:42)
[2016-11-24] MEDS: DRONEDARONE 400 MG TAB PO SCH ×2 (09:03→20:42)
[2016-11-24] MEDS: APIXABAN 2.5 MG TABLET PO SCH ×2 (09:03→20:42)
[2016-11-24] MEDS: SODIUM CHLORIDE 0.9% FLUSH 10 ML FLUSH IV FLUSH SCH ×2 (09:03→20:45)
[2016-11-24] MEDS: SERTRALINE HCL 50 MG TAB PO SCH (09:03)
[2016-11-24] MEDS: ACETAMINOPHEN 325 MG TAB PO PRN (09:10)
--- NOTE | 2016-11-24 12:19 | HHI.PR ---
Subjective Remarks pt feeling better no syncope but hasnt moved her bowels Objective Vital Signs Date Time Temp Pulse Resp B/P Pulse Ox O2 Delivery O2 Flow Rate FiO2 11/24/16 08:45 97.7 65 18 130/57 98 11/24/16 06:00 54 11/24/16 05:00 72 11/24/16 04:00 98.8 82 16 113/59 98 11/24/16 04:00 74 11/24/16 03:00 61 11/24/16 02:00 56 11/24/16 01:00 64 11/24/16 00:00 98.0 72 16 136/67 98 11/24/16 00:00 59 11/23/16 23:00 66 11/23/16 22:00 64 11/23/16 21:00 68 11/23/16 20:00 82 11/23/16 20:00 99.1 74 16 118/54 97 11/23/16 19:00 72 11/23/16 18:33 130/69 11/23/16 18:00 78 11/23/16 17:00 62 11/23/16 16:00 62 11/23/16 15:29 87/52 11/23/16 15:15 98.8 65 16 89/51 96 11/23/16 15:00 64 11/23/16 14:00 134 11/23/16 13:06 109 11/23/16 12:51 129/70 I/O 11/23/16 11/23/16 11/23/16 11/24/16 11/24/16 11/24/16 07:00 15:00 23:00 07:00 15:00 23:00 Intake Total 240 ml 900 ml 1620 ml Output Total 450 ml 400 ml Balance -210 ml 900 ml 1220 ml Intake Oral 240 ml 900 ml 420 ml IV Total 0 ml 1200 ml Output Urine Total 450 ml 400 ml # Voids 3 # Bowel Movements 0 1 0 Result Diagram: 11/22/167 11/22/16426 Objective Remarks GENERAL: SKIN: Warm and dry. HEAD: Atraumatic. Normocephalic. EYES: Pupils equal and round. No scleral icterus. No injection or drainage. ENT: No nasal bleeding or discharge. Mucous membranes pink and moist. NECK: Trachea midline. No JVD. CARDIOVASCULAR: irregular Regular rate and rhythm. RESPIRATORY: No accessory muscle use. Clear to auscultation. Breath sounds equal bilaterally. GASTROINTESTINAL: Abdomen soft, non-tender, nondistended. Hepatic and splenic margins not palpable. MUSCULOSKELETAL: Extremities without clubbing, cyanosis, or edema. No obvious deformities. NEUROLOGICAL: Awake and alert. No obvious cranial nerve deficits. Motor grossly within normal limits. Normal speech. PSYCHIATRIC: Appropriate mood and affect; insight and judgment normal. Medications and IVs Inpatient Medications Acetaminophen (Tylenol) 650 mg Q8HR PRN PO PAIN SCALE 1 TO 6; Start 11/21/16 at 07:00 Acetaminophen/ Hydrocodone Bitart ([place] 5-325 Mg) 1 tab Q6HR PRN PO PAIN SCALE 7 TO 10; Start 11/21/16 at 07:00 Apixaban (Eliquis) 2.5 mg BID PO Last administered on 11/24/16 09:03; Start 11/24/16 at 09:00 Atorvastatin Calcium (Lipitor) 20 mg HS PO Last administered on 11/23/16 21:00 ; Start 11/21/16 at 21:00 Atorvastatin Calcium 20 mg 20 mg HS PO Last administered on 11/23/16 20:31; Start 11/20/16 at 23:14 Bisacodyl (Dulcolax Supp) 10 mg BID PRN RECTAL CONSTIPATION Last administered on 11/23/16 05:31; Start 11/22/16 at 19:00 Diltiazem HCl (Cardizem Drip Inj Premix) 125 ml @ 0 mls/hr TITRATE IV ; Start at 15:45; Stop 11/20/16 at 15:54; Status DC Diltiazem HCl (Cardizem Inj) 10 mg ONCE ONCE IV Last administered on 15:45; Start 11/20/16 at 15:45; Stop 11/20/16 at 15:46; Status DC Diltiazem HCl (Cardizem) 30 mg TID PO Last administered on 11/24/16 09:03; Start 11/21/16 at 18:00 Diltiazem HCl/ Sodium Chloride (Cardizem Inj/NS Inj) 125 ml @ 0 mls/hr TITRATE IV Last administered on 11/20/16 18:06; Start 11/20/16 at 16:00 Docusate Sodium (Colace) 100 mg BID PO Last administered on 11/24/16 09:03; Start 11/21/16 at 21:00 Dronedarone (Multaq) 400 mg BID PO Last administered on 11/24/16 09:03; Start 11/23/16 at 11:00 Enoxaparin Sodium (Lovenox Inj) 50 mg Q24H SQ Last administered on 11/23/16 05: 31; Start 11/22/16 at 05:00; Stop 11/23/16 at 10:14; Status DC Famotidine (Pepcid) 10 mg BID PO Last administered on 11/24/16 09:03; Start 11/21/16 at 09:00 Ondansetron HCl (Zofran Odt) 4 mg Q4H PRN PO NAUSEA Last administered on 13:25; Start 11/21/16 at 06:45 Psyllium Hydrophilic Mucilloid (Metamucil Smooth Texture Sf/ Gf Pkt) 1 pkt BID PO Last administered on 11/23/16 22:39; Start 11/23/16 at 21:00 Sertraline HCl (Zoloft) 50 mg DAILY PO Last administered on 11/24/16 09:03; Start 11/21/16 at 09:00 Sodium Chloride (NS 1000 ml Inj) 1,000 ml @ 100 mls/hr Q10H IV Last administered on 11/24/16 03:15; Start 11/21/16 at 05:15 Sodium Chloride (NS Flush) 2 ml UNSCH PRN IV FLUSH FLUSH AFTER USING IV ACCESS ; Start 11/20/16 at 16:00 Sodium Chloride 2 ml 2 ml BID IV FLUSH Last administered on 11/24/16 09:03; Start 11/20/16 at 21:00 Assessment and Plan Problem List: (1) Atrial fibrillation with rapid ventricular response Status: Acute Plan: now stabilized will continue medical management cardiology consulted add mg bid (2) Hypertension Status: Chronic Plan: previously on cardizem off and on will probably return Assessment and Plan a fib rvr now stabilized for the moment begin multac moniter x 24 hours if bp hr stable then dc home Discussed Condition With patient requests an enema and clean out before discharge probably best to avoid vagal problems while still here Discharge Planning home once bowels move and no further bradycardia or hypotension Fabio Antony DO Nov 24, 2016 12:19
[2016-11-24] MEDS ORDERED: SOD PHOSPHATE/SOD BIPHOSPHATE (ADULT) ENEMA 133ML RECTAL PRN (17:15)
[2016-11-24] MEDS: ATORVASTATIN 20 MG TAB PO SCH (20:42)
[2016-11-25] VITALS (15 sets, daily range): BP systolic 103–133; BP diastolic 51–64; PULSE 46–70; RESP 16–18; TEMP 97.9–98.7; O2SAT 96–97
[2016-11-25] MEDS: DOCUSATE SODIUM 100 MG CAP PO SCH (08:35)
[2016-11-25] MEDS: APIXABAN 2.5 MG TABLET PO SCH (08:35)
[2016-11-25] MEDS: FAMOTIDINE 20 MG TAB PO SCH (08:36)
[2016-11-25] MEDS: SERTRALINE HCL 50 MG TAB PO SCH (08:36)
[2016-11-25] MEDS: PSYLLIUM FIBER SF/GF 6 GM POWD PKT PO SCH ×2 (08:36→08:38)
[2016-11-25] MEDS: SODIUM CHLORIDE 0.9% FLUSH 10 ML FLUSH IV FLUSH SCH (08:38)
[2016-11-25] MEDS: DRONEDARONE 400 MG TAB PO SCH (09:36)
--- NOTE | 2016-11-25 09:46 | HHI.PR ---
Subjective Remarks Patient denies any SOB or CP. Patient heart rate as low as 40's throughout night. Patient ambulated without difficulties Objective Vital Signs Date Time Temp Pulse Resp B/P Pulse Ox O2 Delivery O2 Flow Rate FiO2 11/25/16 08:30 97.9 52 18 133/64 96 11/25/16 07:01 50 11/25/16 03:20 98.7 50 16 103/51 96 11/25/16 03:00 49 11/25/16 02:00 59 11/25/16 01:00 59 11/25/16 00:00 59 11/24/16 23:08 49 11/24/16 23:04 98.7 58 18 131/64 99 11/24/16 19:20 98.9 55 18 119/58 99 11/24/16 19:10 54 11/24/16 18:01 59 11/24/16 17:01 60 11/24/16 16:00 56 11/24/16 15:15 98.9 63 18 119/64 93 11/24/16 15:00 54 11/24/16 14:00 56 11/24/16 13:01 58 11/24/16 12:00 64 11/24/16 11:15 97.5 63 18 104/51 98 11/24/16 11:00 60 11/24/16 10:00 64 I/O 11/24/16 11/24/16 11/24/16 11/25/16 11/25/16 11/25/16 07:00 15:00 23:00 07:00 15:00 23:00 Intake Total 1620 ml 720 ml 240 ml Output Total 400 ml 775 ml 450 ml Balance 1220 ml -55 ml -210 ml Intake Oral 420 ml 720 ml 240 ml IV Total 1200 ml Output Urine Total 400 ml 775 ml 450 ml # Voids 4 # Bowel Movements 0 1 Result Diagram: 11/22/16 0427 11/22/16426 Objective Remarks GENERAL:Alert and cooperative SKIN: Warm and dry. HEAD: Normocephalic. EYES: No scleral icterus. No injection or drainage. NECK: Supple, trachea midline. No JVD or lymphadenopathy. CARDIOVASCULAR: Regular rate and rhythm without murmurs, gallops, or rubs. RESPIRATORY: Breath sounds equal bilaterally. No accessory muscle use. GASTROINTESTINAL: Abdomen soft, non-tender, nondistended. MUSCULOSKELETAL: No cyanosis, or edema. BACK: Nontender without obvious deformity. No CVA tenderness. Medications and IVs Current Medications Medications (Trade) Dose Ordered Sig/Albert Route Start Time Stop Time Status Last Admin (NS Flush) 2 ml UNSCH PRN IV FLUSH 11/20/16 16:00 Sodium Chloride 2 ml 2 ml BID IV FLUSH 11/20/16 21:00 11/25/16 08:38 (Cardizem Inj/NS Inj) 125 ml @ 0 mls/hr TITRATE IV 11/20/16 16:00 11/20/16 18:06 Acetaminophen 650 mg 650 mg Q8H PRN PO 11/20/16 23:15 11/24/16 09:10 (NS 1000 ml Inj) 1,000 ml @ 100 mls/hr Q10H IV 11/21/16 05:15 11/24/16 03:15 (Zofran Odt) 4 mg Q4H PRN PO 11/21/16 06:45 11/23/16 13:25 (Tylenol) 650 mg Q8HR PRN PO 11/21/16 07:00 (Lipitor) 20 mg HS PO 11/21/16 21:00 11/24/16 20:42 (Pepcid) 10 mg BID PO 11/21/16 09:00 11/25/16 08:36 ([place] 5-325 Mg) 1 tab Q6HR PRN PO 11/21/16 07:00 (Zoloft) 50 mg DAILY PO 11/21/16 09:00 11/25/16 08:36 (Colace) 100 mg BID PO 11/21/16 21:00 11/25/16 08:35 (Cardizem) 30 mg TID PO 11/21/16 18:00 11/24/16 18:09 (Dulcolax Supp) 10 mg BID PRN RECTAL 11/22/16 19:00 11/23/16 05:31 (Eliquis) 2.5 mg BID PO 11/24/16 09:00 11/25/16 08:35 (Multaq) 400 mg BID PO 11/23/16 11:00 11/25/16 09:36 (Metamucil Smooth Texture Sf/ Gf Pkt) 1 pkt BID PO 11/23/16 21:00 11/24/16 09:00 (Fleets Enema (Adult)) 133 ml Q8H PRN RECTAL 11/24/16 17:15 Assessment and Plan Problem List: (1) Atrial fibrillation with rapid ventricular response Status: Acute Plan: Patient HR in the 40's to 50's. Patient ambulated to bathroom without dizziness. Currently on Multaq and Cardizem medication may need to be adjusted secondary to bradycardia (2) Depression Status: Chronic Plan: continue current treatment patient in ;good spirits (3) Hyperlipidemia Status: Chronic Plan: Continue statin (4) Constipation Status: Chronic Plan: + BM yesterday after enema Assessment and Plan Assessment and plan discussed with Dr. Antony Discussed Condition With Nursing Discharge Planning Dishcarge home with [facility] Will discharge home today if cleared per cardiology Physician Attestation I and the AGRICULTURAL EXTENSION EDUCATOR have both examined this patient and reviewed this note and I agree with these findings and plan of care. Krupa Lerma AGRICULTURAL EXTENSION EDUCATOR Nov 25, 2016 09:46
--- NOTE | 2016-11-25 10:01 | PD.CARD.PN ---
Subjective Subjective Remarks The patient's primary complaint is constipation. Her heart rate decreased into the 40s overnight while sleeping. Now 50-70 bpm. Patient denies CP, SOB, lightheadedness or palpitations. (Yaritza Nichols) Subjective Remarks The exam, history, and the medical decision-making described in the above note were completed with the assistance of the mid-level provider. I reviewed and agree with the findings presented. I attest that I had a [id number] encounter with the patient on the same day, and personally performed and documented my assessment and findings in the medical record. Overall better will adjust meds ., to control HR (Teena Bartholomew MD) Objective Medications Current Medications Medications (Trade) Dose Ordered Sig/Albert Route Start Time Stop Time Status Last Admin (NS Flush) 2 ml UNSCH PRN IV FLUSH 11/20/16 16:00 Sodium Chloride 2 ml 2 ml BID IV FLUSH 11/20/16 21:00 11/25/16 08:38 (Cardizem Inj/NS Inj) 125 ml @ 0 mls/hr TITRATE IV 11/20/16 16:00 11/20/16 18:06 Acetaminophen 650 mg 650 mg Q8H PRN PO 11/20/16 23:15 11/24/16 09:10 (NS 1000 ml Inj) 1,000 ml @ 100 mls/hr Q10H IV 11/21/16 05:15 11/24/16 03:15 (Zofran Odt) 4 mg Q4H PRN PO 11/21/16 06:45 11/23/16 13:25 (Tylenol) 650 mg Q8HR PRN PO 11/21/16 07:00 (Lipitor) 20 mg HS PO 11/21/16 21:00 11/24/16 20:42 (Pepcid) 10 mg BID PO 11/21/16 09:00 11/25/16 08:36 ([place]borough 5-325 Mg) 1 tab Q6HR PRN PO 11/21/16 07:00 (Zoloft) 50 mg DAILY PO 11/21/16 09:00 11/25/16 08:36 (Colace) 100 mg BID PO 11/21/16 21:00 11/25/16 08:35 (Cardizem) 30 mg TID PO 11/21/16 18:00 11/24/16 18:09 (Dulcolax Supp) 10 mg BID PRN RECTAL 11/22/16 19:00 11/23/16 05:31 (Eliquis) 2.5 mg BID PO 11/24/16 09:00 11/25/16 08:35 (Multaq) 400 mg BID PO 11/23/16 11:00 11/25/16 09:36 (Metamucil Smooth Texture Sf/ Gf Pkt) 1 pkt BID PO 11/23/16 21:00 11/24/16 09:00 (Fleets Enema (Adult)) 133 ml Q8H PRN RECTAL 11/24/16 17:15 Vital Signs / I&O Vital Signs Date Time Temp Pulse Resp B/P Pulse Ox O2 Delivery O2 Flow Rate FiO2 11/25/16 08:30 97.9 52 18 133/64 96 11/25/16 07:01 50 11/25/16 03:20 98.7 50 16 103/51 96 11/25/16 03:00 49 11/25/16 02:00 59 11/25/16 01:00 59 11/25/16 00:00 59 11/24/16 23:08 49 11/24/16 23:04 98.7 58 18 131/64 99 11/24/16 19:20 98.9 55 18 119/58 99 11/24/16 19:10 54 11/24/16 18:01 59 11/24/16 17:01 60 11/24/16 16:00 56 11/24/16 15:15 98.9 63 18 119/64 93 11/24/16 15:00 54 11/24/16 14:00 56 11/24/16 13:01 58 11/24/16 12:00 64 11/24/16 11:15 97.5 63 18 104/51 98 11/24/16 11:00 60 11/24/16 10:00 64 I/O 11/24/16 11/24/16 11/24/16 11/25/16 11/25/16 11/25/16 07:00 15:00 23:00 07:00 15:00 23:00 Intake Total 1620 ml 720 ml 240 ml Output Total 400 ml 775 ml 450 ml Balance 1220 ml -55 ml -210 ml Intake Oral 420 ml 720 ml 240 ml IV Total 1200 ml Output Urine Total 400 ml 775 ml 450 ml # Voids 4 # Bowel Movements 0 1 Physical Exam GENERAL: female wisting up in the bed SKIN: Warm and dry. HEAD: Normocephalic. EYES: No scleral icterus. No injection or drainage. NECK: Supple, trachea midline. CARDIOVASCULAR: Irregularly irregular RESPIRATORY: Bilateral rales GASTROINTESTINAL: Abdomen soft, non-tender, nondistended. MUSCULOSKELETAL: No cyanosis, or edema. BACK: Nontender without obvious deformity. No CVA tenderness. (Yaritza Nichols) Assessment and Plan Assessment and Plan ASSESSMENT Atrial fibrillation with RVR. Transient slow ventricular response in the 40s overnight while sleeping. Hx of stroke HTN Constipation PLAN Continue ELiquis 2.5 mg dosed appropriately for age and weight Continue multaq Decrease cardizem Ok for discharge from a cardiac standpoint. Followup with Dr Tobar next week Assessment and plan discussed with Dr Bartholomew (Yaritza Nichols) Yaritza Nichols Nov 25, 2016 10:01 Teena Bartholomew MD Nov 26, 2016 14:17
[2016-11-25] MEDS: ACETAMINOPHEN 325 MG TAB PO PRN (11:37)
--- NOTE | 2016-11-25 12:56 | HHI.FF ---
Face to Face Verification Diagnosis: (1) Atrial fibrillation with rapid ventricular response (2) Hypertension (3) Status post CVA Physical Therapy Order: Evaluate and Treat Home Health Nursing Order: Medical education Medication education-adverse effect I have seen patient Liyah Andino on 11/25/16. My clinical findings support the need for the requested home health care services because: Ltd mobility - disease progression Need for psychosocial assistance High risk of falls I certify that my clinical findings support that this patient is homebound because: Unsteady gait/balance Need for psychosocial assistance Krupa Charlton Nov 25, 2016 12:56
[2016-11-25] MEDS ORDERED: FAMO20TA2 PO (13:02)
[2016-11-25] MEDS ORDERED: DILT31TA PO (13:02)
[2016-11-25] MEDS ORDERED: MULT400T PO (13:02)
[2016-11-25] MEDS ORDERED: APIX2.5T PO (13:02)
--- NOTE | 2016-11-25 13:03 | HHI.DCPOC ---
Discharge Care Plan Diagnosis: (1) Hyperlipidemia (2) Depression (3) Atrial fibrillation with rapid ventricular response Your Health Problems Are: Exercise Tolerance Goals to Promote Your Health * To prevent worsening of your condition and complications * To maintain your health at the optimal level Directions to Meet Your Goals Take your medications as prescribed Follow your dietary instruction Follow activity as directed Keep your appointments as scheduled Take your immunizations and boosters as scheduled If your symptoms worsen call your PCP, if no PCP go to Urgent Care Center or Emergency Room Smoking is Dangerous to Your Health. Avoid second hand smoke Call the 24-hour hour crisis hotline for domestic abuse at Krupa Charlton Nov 25, 2016 13:03
--- NOTE | 2016-11-25 13:10 | HHI.DS ---
Discharge Summary Admission Date Nov 20, 2016 at 15:56 Admitting Diagnosis AFib RVR Brief History 86 yo female with intermittent a fib came to ED with a-fib RVR. She was stabilized on a Cardizem drip and admitted to cardiac unit. Cardiology was consulted to manage CBC/BMP: 11/22/16 0427 11/22/16 042 PE at Discharge GENERAL:Alert and cooperative SKIN: Warm and dry. HEAD: Normocephalic. EYES: No scleral icterus. No injection or drainage. NECK: Supple, trachea midline. No JVD or lymphadenopathy. CARDIOVASCULAR: Regular rate and rhythm without murmurs, gallops, or rubs. RESPIRATORY: Breath sounds equal bilaterally. No accessory muscle use. GASTROINTESTINAL: Abdomen soft, non-tender, nondistended. MUSCULOSKELETAL: No cyanosis, or edema. BACK: Nontender without obvious deformity. No CVA tenderness. Hospital Course 86 yo female with intermittent a fib came to ED with a-fib RVR. She was stabilized on a Cardizem drip and admitted to cardiac unit. Cardiology was consulted to manage. Patient was on IV Diltazem which during her hospital course was changed to PO. She was also placed on Multag secondary to having a difficult time controlling rate. Patient heart rate went has low at the 40 's overnight cardizem was decreased per cardiology and cleared for discharge. Patient was ambulated at bedside and denied any dizziness. Patient discharged home with [facility]. Follow up appt made with Dr. Antony and follow up appt needed with Dr. Tobar Pt Condition on Discharge: Good Discharge Disposition: Disch w/ Home Health Serv Discharge Instructions DIET: Follow Instructions for: Heart Healthy Diet Activities you can perform: Regular-No Restrictions Follow up Referrals: PCP Follow-up Appt on 12/01 at 12:00 New Medications: Apixaban (Eliquis) 2.5 Mg Tab 2.5 MG PO BID Blood Clot Prevention #60 TAB Diltiazem (Cardizem) 30 Mg Tab 30 MG PO BID Blood Pressure Management #60 TAB Dronedarone (Multaq) 400 Mg Tab 400 MG PO BID Regulate Heart Beat #60 TAB Famotidine (Famotidine) 20 Mg Tab 10 MG PO BID Heartburn Management #60 TAB Continued Medications: Acetaminophen (Acetaminophen) 325 Mg Tab 650 MG PO Q8HR PRN PAIN SCALE 1 TO 6 #60 Ref 1 TAB Apixaban (Eliquis) 2.5 Mg Tab 2.5 MG PO BID Blood Clot Prevention Ref [address] (Aspirin EC) 81 Mg Tabdr 81 MG PO DAILY Blood Clot Prevention #30 Ref 1 TAB Atorvastatin (Lipitor) 20 Mg Tab 20 MG PO HS Cholesterol Management #30 Ref 1 TAB Hydrocodone-Acetaminophen (Hydrocodone-Acetaminophen) 5-325 mg Tab 1 TAB PO Q6HR PRN PAIN SCALE 7 TO 10 #60 Ref 0 TAB Sertraline (Zoloft) 50 Mg Tab 50 MG PO DAILY #30 Ref 1 TAB Discontinued Medications: Famotidine (Famotidine) 20 Mg Tab 10 MG PO BID Heartburn Management #60 Ref 1 TAB Furosemide (Furosemide) 20 Mg Tab 20 MG PO DAILY #30 Ref 1 TAB ([Albuterol Concentrated Neb]) 2.5 MG/0.5 ML NEBU 2.5 MG NEB Q6HR NEB Krupa Nieto Nov 25, 2016 13:10
[2016-11-25 14:28] LABS: HEMATOCRIT 34.1 % (35.0-46.0); MEAN CELL VOLUME 93.2 FL (80.0-100.0); MEAN CORPUSCULAR HEMOGLOBIN 30.3 PG (27.0-34.0); MEAN CORPUSCULAR HGB CONC 32.5 % (32.0-36.0); PLATELET COUNT 131 TH/MM3 (150-450); RED BLOOD COUNT 3.66 MIL/MM3 (4.00-5.30); RED CELL DISTRIBUTION WIDTH 13.5 % (11.6-17.2); REVIEW FLAG FINAL; WHITE BLOOD COUNT 4.3 TH/MM3 (4.0-11.0)
[2016-11-25 14:57] LABS: BICARBONATE 25.7 MEQ/L (21.0-32.0); POTASSIUM 4.2 MEQ/L (3.5-5.1)
[2016-11-25] MEDS ORDERED: DILTIAZEM HCL 30 MG TAB PO SCH (21:00)
== END 2016-11-25 15:50 | disposition home health service (06) | DRG 310 ==
LOC: NEPC 13:39 → NEDA 15:56 → HCIN 17:26
PROVIDERS: ADMIT Family Medicine; ATTEND Family Medicine
DX: I48.0 Paroxysmal atrial fibrillation (principal); I95.9 Hypotension, unspecified; I12.9 Hypertensive chronic kidney disease with stage 1 through stage 4 chronic kidney disease, or unspecified chronic kidney disease; F32.9 Major depressive disorder, single episode, unspecified; M19.90 Unspecified osteoarthritis, unspecified site; R11.2 Nausea with vomiting, unspecified; N18.9 Chronic kidney disease, unspecified; E78.5 Hyperlipidemia, unspecified; K59.00 Constipation, unspecified; R00.1 Bradycardia, unspecified; Z86.73 Personal history of transient ischemic attack (TIA), and cerebral infarction without residual deficits; Z79.02 Long term (current) use of antithrombotics/antiplatelets
CPT/HCPCS: 71010; 76937; 80048; 80053; 82550; 82552; 83735; 84481; 84484; 85025; 85027; 85610; 93005; 96374; J1650; J7030

== ENCOUNTER 2016-12-27 17:38 | Emergency (ER) | payer MEDICARE, OTHER ==
[~2016-12-27] VITALS: Ht 162.6 cm; Wt 50.0 kg
[~2016-12-27 17:38] MED LIST changes: -ALBUTEROL NEB; +APIX2.5T PO; +DILT31TA PO; -FURO20TA PO; -KONS100P3 PO; -LIDO5DIS35 TD; -MUCI600T PO; +MULT400T PO; -POLY17S PO; -POTA10CA PO; -SENN1TAB PO; -THERTAB15 PO
[2016-12-27 17:40] VITALS: BP 176/94; PULSE 80; RESP 17; TEMP 98.2; O2SAT 98
[2016-12-27] MEDS ORDERED: ACETAMINOPHEN 325 MG TAB PO ONE (18:00)
[2016-12-27 18:04] VITALS: BP 195/80; PULSE 52; RESP 15; O2SAT 98
--- NOTE | 2016-12-27 18:25 | RADRPT ---
EXAM DATE/TIME: 12/27/2016 18:20 [facility] COMPARISON: No previous studies available for comparison. INDICATIONS : Knee pain. MEDICAL HISTORY : None. SURGICAL HISTORY : None. ENCOUNTER: Initial ACUITY: 1 day PAIN SCORE: 0/10 LOCATION: Right knee FINDINGS: There is mild tricompartment osteoarthritis. Chondrocalcinosis noted. Trace joint effusion. There is an enthesophyte of the quadriceps insertion. Patchy atherosclerosis seen of the distal superficial femoral artery. CONCLUSION: Mild osteoarthritis and trace nonspecific joint effusion. No fracture of the right knee. Fletcher Bhatia MD on December 27, 2016 at 18:22 Board Certified Radiologist. This report was verified electronically.
[2016-12-27 18:27] VITALS: BP 149/65; PULSE 50; RESP 17; O2SAT 95
--- NOTE | 2016-12-27 18:39 | PD ---
HPI Chief Complaint: Edema Time Seen by Provider: 18:29 Travel History International Travel<30 days: No Contact w/Intl Traveler<30days: No Traveled to known affect area: No History of Present Illness HPI 66-year-old female that presents to the ED for evaluation of right knee pain. Patient comes here stating to Dr Antony Were recommended that she comes here to get an ultrasound to make sure she doesn't have a blood clot. Per patient the pain is to the posterior aspect of the knee. It started couple days ago and is presently getting worse. Per patient he gets more severe when she flexes her knee. She does take liquids. She has no history of DVT or injuries to this leg. Per patient the pain gets worse when she puts weight on it. She takes Tylenol with some relief. She denies missing any doses of her blood thinner. No other medical issues reported. No numbness, tilling, weakness. No injuries or falls. PFSH Past Medical History Hx Anticoagulant Therapy: Yes (COUMADIN) Arthritis: Yes Asthma: No Autoimmune Disease: No Blood Disorders: No Anxiety: No Depression: Yes Heart Rhythm Problems: No Cancer: No Cardiovascular Problems: Yes High Cholesterol: No Chemotherapy: No Chest Pain: No Congestive Heart Failure: No COPD: No Cerebrovascular Accident: Yes (RECENT LEFT MCA) Diabetes: No Diminished Hearing: No Endocrine: No Gastrointestinal Disorders: Yes GERD: No Glaucoma: No Genitourinary: Yes (CKD) Headaches: No Hepatitis: No Hiatal Hernia: No Heparin Induced Thrombocytopen: No Hypertension: Yes Immune Disorder: No Kidney Stones: No Musculoskeletal: Yes Neurologic: Yes Psychiatric: Yes Reproductive: No Respiratory: Yes Migraines: No Myocardial Infarction: No Radiation Therapy: No Renal Failure: No Seizures: No Sickle Cell Disease: No Sleep Apnea: No Thyroid Disease: No Ulcer: No Menopausal: Yes Past Surgical History Abdominal Surgery: No AICD: No Arteriovenous Shunt: No Cardiac Surgery: No Ear Surgery: No Endocrine Surgery: No Eye Surgery: No Genitourinary Surgery: No Gynecologic Surgery: No Insulin Pump: No Joint Replacement: No Neurologic Surgery: No Oral Surgery: No Pacemaker: No Thoracic Surgery: No Tonsillectomy: Yes Other Surgery: Yes (RIGHT ARM SURGERY FOR POSSIBLE SKIN CA) Social History Alcohol Use: Yes (OCC) Tobacco Use: No Substance Use: No Allergies-Medications (Allergen,Severity, Reaction): Coded Allergies: No Known Allergies (Verified , 12/27/16) Reported Meds & Prescriptions Reported Meds & Active Scripts Active Walker Rolling/GetGo (Device) 1 Mis Mis 1 Ea .ROUTE DIRECTED Famotidine 20 Mg Tab 10 Mg PO BID Multaq (Dronedarone) 400 Mg Tab 400 Mg PO BID Cardizem (Diltiazem HCl) 30 Mg Tab 30 Mg PO BID Hydrocodone-Acetaminophen 5-325 mg Tab 1 Tab PO Q6HR PRN Lipitor (Atorvastatin Calcium) 20 Mg Tab 20 Mg PO HS Aspirin EC (Aspirin) 81 Mg Tabdr 81 Mg PO DAILY Zoloft (Sertraline HCl) 50 Mg Tab 50 Mg PO DAILY Reported Eliquis (Apixaban) 2.5 Mg Tab 2.5 Mg PO BID Review of Systems Except as stated in HPI: all other systems reviewed are Neg Physical Exam Narrative GENERAL: SKIN: Warm and dry. HEAD: Atraumatic. Normocephalic. EYES: Pupils equal and round. No scleral icterus. No injection or drainage. ENT: No nasal bleeding or discharge. Mucous membranes pink and moist. Tongue is midline. No uvula deviation. NECK: Trachea midline. No JVD. CARDIOVASCULAR: Regular rate and rhythm. No murmurs, S3, S4. RESPIRATORY: No accessory muscle use. Clear to auscultation. Breath sounds equal bilaterally. GASTROINTESTINAL: Abdomen soft, non-tender, nondistended. Hepatic and splenic margins not palpable. MUSCULOSKELETAL: Extremities without clubbing, cyanosis, or edema. No obvious deformities. Full range of motion of the upper and lower extremities bilaterally. No obvious deformity noted on the posterior right knee with possible sepsis noted. Patient does have some tenderness to palpation is area. No obvious swelling noted. Slightly tender with touch but more with flexion. No bruising noted. Sensation intact. Neurovascular intact. NEUROLOGICAL: Awake and alert. No obvious cranial nerve deficits. Motor grossly within normal limits. Five out of 5 muscle strength in the arms and legs. Normal speech. PSYCHIATRIC: Appropriate mood and affect; insight and judgment normal. Data Data Last Documented VS Vital Signs Date Time Temp Pulse Resp B/P Pulse Ox O2 Delivery O2 Flow Rate FiO2 12/27/16 18:27 50 17 149/65 95 Room Air 12/27/16 17:40 98.2 Orders Us Leg Venous Doppler (12/27/16 17:56) Knee, Complete (4vws) (12/27/16 17:56) Acetaminophen (Tylenol) (12/27/16 18:00) MDM Medical Decision Making Medical Screen Exam Complete: Yes Emergency Medical Condition: Yes Medical Record Reviewed: Yes Interpretation(s) Last Impressions Lower Extremity Ultrasound 12/27/161755 Signed Impressions: Service Date/Time: Tuesday, December 27, 2016 18:41 - CONCLUSION: Normal examination. Candido Patino MD Knee X-Ray 12/27/161755 Signed Impressions: Service Date/Time: Tuesday, December 27, 2016 18:20 - CONCLUSION: Mild osteoarthritis and trace nonspecific joint effusion. No fracture of the right knee. Fletcher Bhatia MD Differential Diagnosis DVT versus muscle pain versus Rose cyst versus normal exam Narrative Course 86-year-old female that presents to the ED for evaluation of right posterior knee pain. Patient was properly examined and was found to have signs and symptoms consistent with appears to be possible DVT versus Rose cyst. X-ray and ultrasound recommended. Patient agrees with this. Imaging showed no sign of acute injury or a blood clot. Patient was reassured. Patient agrees with plan. This time this appears to be tendinitis. Patient does inform me that she did started having the pain after she was on her treadmill and she used heals. Pain is reproducible with touch and with flexion. This appears to be more muscle scale. At this time I recommend warm compresses and Tylenol for pain. Patient was told to follow with her PCP. See ED worsening symptoms. Diagnosis Primary Impression: Posterior right knee pain Additional Impression: Tendinitis Patient Instructions: General Instructions Additional Instructions: Use walker for the next couple days or cane to get about. Take Tylenol for pain. Warm compresses. Follow-up with your PCP. See ED if any worsening symptoms. It will take a couple of weeks for your pain to improve. Med/Other Pt SpecificInfo: Prescription(s) given Scripts Walker Rolling/GetGo 1 Mis Mis #1 Ea .route As Directed Prov:Tyson Qureshi MD 12/27/16 Disposition: 01 DISCHARGE HOME Condition: Stable [place] Dec 27, 2016 18:39
--- NOTE | 2016-12-27 19:18 | RADRPT ---
EXAM DATE/TIME: 12/27/2016 18:41 [facility] COMPARISON: No previous studies available for comparison. INDICATIONS : Right leg pain. MEDICAL HISTORY : Hypertension. Cerebrovascular accident. Chronic kidney disease. Arthritis. Depression. SURGICAL HISTORY : Tonsillectomy. Left tibia repair. Lower back surgery. Right arm surgery for possible skin carcino ma. ENCOUNTER: Initial ACUITY: 1 day PAIN SCORE: 7/10 LOCATION: Right leg. TECHNIQUE: Venous ultrasound of the leg was performed from the inguinal ligament to the proximal calf. Real-harley e, color Doppler and spectral tracing, compression and augmentation techniques were used. FINDINGS: There is normal compressibility of the deep venous system from the inguinal region to the proximal ca lf. No echogenic clot is seen in the lumen of the common femoral, femoral, popliteal, and posterior tibial veins. There is a normal response of the venous system to proximal and distal augmentation an d respiration. CONCLUSION: Normal examination. Candido Patino MD on December 27, 2016 at 19:16 Board Certified Radiologist. This report was verified electronically.
[2016-12-27] MEDS ORDERED: GETGO ROLLING W1 MI1 ×2 (19:29→19:30)
== END 2016-12-27 21:40 | disposition home or self-care (01) ==
LOC: NEPC 17:38
DX: M25.561 Pain in right knee (principal); M77.9 Enthesopathy, unspecified; I12.9 Hypertensive chronic kidney disease with stage 1 through stage 4 chronic kidney disease, or unspecified chronic kidney disease; N18.9 Chronic kidney disease, unspecified; Z79.01 Long term (current) use of anticoagulants; Z79.82 Long term (current) use of aspirin; Z86.73 Personal history of transient ischemic attack (TIA), and cerebral infarction without residual deficits
CPT/HCPCS: 73564; 93971; 99285

== ENCOUNTER 2017-09-23 13:03 | Emergency (ER) | payer MEDICARE, OTHER ==
[~2017-09-23 13:03] MED LIST changes: -ACET325T PO; -ASPI81TA11 PO; +ASPI81TA23 PO; +GETGO ROLLING W1 MI1
[2017-09-23 13:06] VITALS: BP 148/59; PULSE 66; RESP 16; TEMP 98.1; O2SAT 98
--- NOTE | 2017-09-23 13:32 | RADRPT ---
EXAM DATE/TIME: 09/23/2017 13:21 [facility] COMPARISON: ABDOMEN KUB ONLY, June 16, 2016, 11:08. INDICATIONS : Left hip pain; no known injury. MEDICAL HISTORY : None. SURGICAL HISTORY : None. ENCOUNTER: Initial ACUITY: 2 weeks PAIN SCORE: 6/10 LOCATION: Left hip FINDINGS: The bony pelvic ring is intact. The arcuate lines of the sacrum are symmetric. The primary and seco ndary trabecular pattern of the frontal neck is intact bilaterally. There is mild angulation of the junction of the superior femoral head and neck on the left side seen about the frontal and lateral vi ew. This is of uncertain significance, but could represent possible fracture. CONCLUSION: Mild angulation at the junction of the superior femoral head and neck of the left side without signif icant osteophyte formation suggests the possibility of a fracture. Recommend further characterizatio n with MRI to include STIR images. Steven Serrano MD on September 23, 2017 at 13:28 Board Certified Radiologist. This report was verified electronically.
--- NOTE | 2017-09-23 13:39 | PD ---
HPI Chief Complaint: Pain: Acute or Chronic Time Seen by Provider: 13:29 Travel History International Travel<30 days: No Contact w/Intl Traveler<30days: No Traveled to known affect area: No History of Present Illness HPI 86-year-old female presents to the emergency department for evaluation of left hip pain that has been intermittent over the past 3 weeks, but constant for the past week. She denies a traumatic injury. She has been ambulatory. Patient has history of A. fib and is on Eliquis. Current pain is 6/10, aching. Ambulation will exacerbate pain, keeping the leg still will help alleviate pain. She took Tylenol early this morning for her pain. She denies any other symptoms or complaints. Mild severity. PFSH Past Medical History Hx Anticoagulant Therapy: Yes (COUMADIN) Arthritis: Yes Asthma: No Autoimmune Disease: No Blood Disorders: No Anxiety: No Depression: Yes Heart Rhythm Problems: No Cancer: No Cardiovascular Problems: Yes High Cholesterol: No Chemotherapy: No Chest Pain: No Congestive Heart Failure: No COPD: No Cerebrovascular Accident: Yes (RECENT LEFT MCA) Diabetes: No Diminished Hearing: No Endocrine: No Gastrointestinal Disorders: Yes GERD: No Glaucoma: No Genitourinary: Yes (CKD) Headaches: No Hepatitis: No Hiatal Hernia: No Heparin Induced Thrombocytopen: No Hypertension: Yes Immune Disorder: No Kidney Stones: No Musculoskeletal: Yes Neurologic: Yes Psychiatric: Yes Reproductive: No Respiratory: Yes Migraines: No Myocardial Infarction: No Radiation Therapy: No Renal Failure: No Seizures: No Sickle Cell Disease: No Sleep Apnea: No Thyroid Disease: No Ulcer: No Menopausal: Yes Past Surgical History Abdominal Surgery: No AICD: No Arteriovenous Shunt: No Cardiac Surgery: No Ear Surgery: No Endocrine Surgery: No Eye Surgery: No Genitourinary Surgery: No Gynecologic Surgery: No Insulin Pump: No Joint Replacement: No Neurologic Surgery: No Oral Surgery: No Pacemaker: No Thoracic Surgery: No Tonsillectomy: Yes Other Surgery: Yes (RIGHT ARM SURGERY FOR POSSIBLE SKIN CA) Social History Alcohol Use: Yes (OCC) Tobacco Use: No Substance Use: No Allergies-Medications (Allergen,Severity, Reaction): Coded Allergies: No Known Allergies (Verified Adverse Reaction, Unknown, 09/23/17) Reported Meds & Prescriptions Reported Meds & Active Scripts Active Walker Rolling/GetGo (Device) 1 Mis Mis 1 Ea .ROUTE DIRECTED Famotidine 20 Mg Tab 10 Mg PO BID Multaq (Dronedarone) 400 Mg Tab 400 Mg PO BID Cardizem (Diltiazem HCl) 30 Mg Tab 30 Mg PO BID Hydrocodone-Acetaminophen 5-325 mg Tab 1 Tab PO Q6HR PRN Lipitor (Atorvastatin Calcium) 20 Mg Tab 20 Mg PO HS Aspirin EC (Aspirin) 81 Mg Tabdr 81 Mg PO DAILY Zoloft (Sertraline HCl) 50 Mg Tab 50 Mg PO DAILY Reported Eliquis (Apixaban) 2.5 Mg Tab 2.5 Mg PO BID Review of Systems Except as stated in HPI: all other systems reviewed are Neg Physical Exam Narrative GENERAL: Well-nourished, well-developed elderly female patient, afebrile. SKIN: Focused skin assessment warm/dry. No skin changes. HEAD: Normocephalic. Atraumatic. EYES: No scleral icterus. No injection or drainage. NECK: Supple, trachea midline. No JVD or lymphadenopathy. CARDIOVASCULAR: Regular rate and rhythm without murmurs, gallops, or rubs. Left pedal pulse 2+. RESPIRATORY: Breath sounds equal bilaterally. No accessory muscle use. Lung sounds are clear to auscultation peer GASTROINTESTINAL: Abdomen soft, non-tender, nondistended. MUSCULOSKELETAL: No cyanosis, or edema. No reproducible bony point tenderness. BACK: Nontender without obvious deformity. No CVA tenderness. Data Data Last Documented VS Vital Signs Date Time Temp Pulse Resp B/P (MAP) Pulse Ox O2 Delivery O2 Flow Rate FiO2 09/23/17 15:01 20 09/23/17 13:06 98.1 66 148/59 (88) 98 Orders Orders Hip, Uni(Ap&Lat) W Ap Pelvis (09/23/17 ) Acetaminophen (Tylenol) (09/23/17 13:45) Ct Hip W/O Contrast (09/23/17 ) MDM Medical Decision Making Medical Screen Exam Complete: Yes Emergency Medical Condition: Yes Medical Record Reviewed: Yes Interpretation(s) x-ray left hip with pelvis - CONCLUSION: Mild angulation at the junction of the superior femoral head and neck of the left side without significant osteophyte formation suggests the possibility of a fracture. Recommend further characterization with MRI to include STIR images. CT hip - CONCLUSION: 1. No fracture is identified. The bones are undermineralized and there is moderate severity left hip joint osteoarthritis. 2. Severe atherosclerotic disease. Differential Diagnosis Sprain versus strain versus contusion versus fracture Narrative Course 86-year-old elderly female presents to the emergency department for evaluation of left hip pain. She is ambulatory. There is no bony point tenderness on exam. She denies a traumatic injury. X-ray of the left hip with pelvis was ordered in triage. Shows mild angulation at the junction of the superior femoral head and neck of the left side without significant osteophyte formation suggests the possibility of fracture. CT of the left hip is ordered and pending. Patient is given Tylenol [address] of the left hip is negative for fracture. Patient is ambulatory in the emergency department without issue. There is no reproducible bony point tenderness. Patient had no trauma. Patient is stable for discharge to follow with her primary care physician. She is to continue Tylenol every 4 hours as needed for pain. The patient was discharged in stable condition with instructions, including return instructions and follow up instructions. Diagnosis Primary Impression: Left hip pain Referrals: Primary Care Physician call for appointment Patient Instructions: General Instructions, Hip Pain (ED) Additional Instructions: Ice for 20 minutes 4-5 times daily. Take Tylenol every 4 hours as needed for pain. Follow-up with a primary care physician. Return to the emergency department for any acute worsening of symptoms. Med/Other Pt SpecificInfo: No Change to Meds Disposition: 01 DISCHARGE HOME Condition: Stable NeriAna Cristina September 23, 2017 13:39
[2017-09-23] MEDS ORDERED: ACETAMINOPHEN 325 MG TAB PO ONE (13:45)
[2017-09-23 15:01] VITALS: RESP 20
--- NOTE | 2017-09-23 15:06 | RADRPT ---
EXAM DATE/TIME: 09/23/2017 14:20 [place] COMPARISON: HIP LEFT (AP&LAT 2/3VWS) W AP PELVIS, September 23, 2017, 13:21. INDICATIONS : Patient complains of left hip pain, no known injury. RADIATION DOSE: 14.90 CTDIvol (mGy) MEDICAL HISTORY : Cerebrovascular disease. Hypertension. SURGICAL HISTORY : None. ENCOUNTER: Initial ACUITY: 2 weeks PAIN SCALE: 6/10 LOCATION: Left hip TECHNIQUE: Volumetric scanning of the hip was performed. Using automated exposure control and adjustment of the mA and/or kV according to patient size, radiation dose was kept as low as reasonably achievable to o btain optimal diagnostic quality images. DICOM format image data is available electronically for rev iew and comparison. FINDINGS: BONES: No fracture is identified. The bones are undermineralized. JOINTS: There is moderate left hip joint osteoarthritis with joint space narrowing and osteophytes. There is also degenerative change at the pubic symphysis and in the visualized inferior lumbar spine at L5-S1. SOFT TISSUES: The surrounding soft tissues demonstrate no acute abnormality. There is moderate to severe atheroscle rotic disease of the pelvic arterial vessels. CONCLUSION: 1. No fracture is identified. The bones are undermineralized and there is moderate severity left hip joint osteoarthritis. 2. Severe atherosclerotic disease. Fletcher Brantley MD on September 23, 2017 at 14:58 Board Certified Radiologist. This report was verified electronically.
== END 2017-09-23 15:29 | disposition home or self-care (01) ==
LOC: NEPK 13:03
DX: M25.552 Pain in left hip (principal); I12.9 Hypertensive chronic kidney disease with stage 1 through stage 4 chronic kidney disease, or unspecified chronic kidney disease; N18.9 Chronic kidney disease, unspecified; I48.91 Unspecified atrial fibrillation; Z79.01 Long term (current) use of anticoagulants
CPT/HCPCS: 73502; 73700; 99284